=== PATIENT | male | born 1965 | race Caucasian/White ===

== ENCOUNTER 2018-06-17 14:55 | Inpatient (IN) | payer OTHER ==
[~2018-06-17] VITALS: Ht 177.8 cm; Wt 68.0 kg
[2018-06-17] VITALS (7 sets, daily range): BP systolic 120–150; BP diastolic 63–81
[~2018-06-17 14:55] MED LIST: DOXYCYCLINE 10100 MG PO; NOHOMEMEDICATIONS; PERCOCET 5-3251 EACH PO
[2018-06-17 15:27] LABS: BASOPHILS 0.4 % (0.0-2.0); LYMPHOCYTES 30.7 % (24.0-44.0); MCH 25.7 pg (26.0-34.0)
[2018-06-17 15:29] LABS: ABSOLUTE NEUTROPHILS 4.4 thou/uL (1.4-8.2); EOSINOPHILS 1.2 % (0.0-3.0); MCHC 32.9 g/dL (28.0-37.0); MCV 78.2 fL (80.0-100.0); MONOCYTES 6.4 % (1.0-8.0); PLATELET COUNT 144 thou/uL (150-400); POLYS 61.3 % (36.0-66.0); RBC 1.73 mil/uL (4.50-6.00); WBC 7.1 thou/uL (4.0-11.0)
[2018-06-17 15:31] LABS: HEMATOCRIT 13.6 % (42.0-52.0); HEMOGLOBIN 4.5 gm/dL (14.0-18.0)
[2018-06-17 15:36] LABS: CALCIUM 7.7 mg/dL (8.5-10.1); CREATININE 0.9 mg/dL (0.7-1.3); POTASSIUM 3.5 mmol/L (3.5-5.1)
[2018-06-17 15:42] LABS: ALBUMIN 2.4 g/dL (3.4-5.0); TOTAL PROTEIN 5.4 g/dL (6.4-8.2)
[2018-06-17 15:45] LABS: ANISOCYTOSIS 2+; HYPOCHROMASIA 1+; POLYCHROMASIA OCCASIONAL
[2018-06-17 15:46] LABS: MICROCYTES 1+
[2018-06-17 16:03] LABS: INR 1.2; PROTIME 12.2 Seconds (9.3-11.4)
[2018-06-17 16:06] LABS: URINE BLOOD NEGATIVE (Negative); URINE CLARITY CLEAR; URINE COLOR YELLOW; URINE GLUCOSE-RANDOM* NEGATIVE (Negative); URINE KETONES NEGATIVE (Negative); URINE NITRITE-REFLEX NEGATIVE (Negative); URINE PROTEIN (DIPSTICK) NEGATIVE (Negative)
[2018-06-17 16:07] LABS: ICTOTEST (BILI CONFIRMATORY) Negative (Negative); URINE BILIRUBIN NEGATIVE (Negative); URINE LEUKOCYTES-REFLEX 1+ (Negative)
[2018-06-17 16:16] LABS: BACTERIA-REFLEX 1-9 Few /HPF (None Seen); CASTS None Seen /LPF (None Seen); CRYSTALS None Seen /LPF (None Seen); SQUAMOUS None Seen /LPF (0-3); URINE RBC None Seen /HPF (0-2)
[2018-06-17 17:28] LABS: TSH 4.181 uIU/mL (0.358-3.740)
--- NOTE | 2018-06-17 18:21 | NUR ---
PT ADMITED FROM ER. ALERT AND ORIENTED. ADMISSION HX AND ASSESSMENT COMPLETED. VSS. ON CIWA PROTOCAL. SCORED A 3. PT ORIENTED TO THE ROOM AND THE CALL SYSTEM. ORDERS GIVEN TO TRANSFUSE 1 UNIT OF BLOOD. NPO AFTER MIDNIGHT. WILL CONTINUE TO MONITOR.
[2018-06-17 18:28] LABS: FOLIC ACID 22.8 ng/mL (8.6-58.9)
[2018-06-18 03:08] LABS: GLYCOHEMOGLOBIN (HGB A1C) 4.8 % (4.8-5.6)
--- NOTE | 2018-06-18 03:21 | NUR ---
Patient making slow progress towards outcome goals. Completed transfusion of 2 units PRBC without untoward reations. Tolerated clear liquids.PO after MN for possible EGD, patient not happy but states understanding. IVFLuids and Protonix drip infusing. No active signs of bleeding. Rhythm sinus with brief SVT with activity. CIWA levels 3-4. Patient medicated with Lorazepam with some relief. High fall risks, fall precautions in place.
[2018-06-18 03:54] VITALS: BP 133/65
[2018-06-18 06:27] LABS: HEMATOCRIT 18.5 % (42.0-52.0); HEMOGLOBIN 6.6 gm/dL (14.0-18.0)
--- NOTE | 2018-06-18 06:35 | NUR ---
No signs of active bleeding. Hemoglobin/HCT 6.6 and 18.5 after 2 units PRBC. Orders received to tansfuse 1 mor unit PRBC. NPO per GI for possible EGD.
[2018-06-18 06:37] LABS: CHOLESTEROL 72 mg/dL (<200); HDL CHOLESTEROL 14 mg/dL (>40); LDL CHOLESTEROL 44 mg/dL (<100); TC:HDL 5.1 Ratio (Not establshd); TRIGLYCERIDE 71 mg/dL (<150); VLDL 14 mg/dL (<40)
[2018-06-18 07:10] VITALS: BP 150/73
[2018-06-18 07:58] VITALS: BP 122/77; BP 127/89; BP 129/80
[2018-06-18 08:47] LABS: CALCIUM 7.9 mg/dL (8.5-10.1); CREATININE 0.8 mg/dL (0.7-1.3); MAGNESIUM 1.7 mg/dL (1.8-2.4); POTASSIUM 3.9 mmol/L (3.5-5.1)
[2018-06-18 11:02] VITALS: BP 139/77
[2018-06-18 13:34] LABS: HEMATOCRIT 22.4 % (42.0-52.0); HEMOGLOBIN 7.5 gm/dL (14.0-18.0)
[2018-06-18 16:13] VITALS: BP 134/82
--- NOTE | 2018-06-18 17:20 | NUR ---
END OF SHIFT NOTE. PT TO GI FOR EGD THIS AM. TOLORATED PROCEDURE WELL. 1 UNIT PRBCS GIVEN . HBG UP TO 7.5 CALL TO CAMILLE DAHL. WANT TO JUST CHECK IN AM. CONTINUE PROTONIX GTT. PT REFUSED CLEAR LIQUIDS SO UNABLE TO DO COLONOSCOPY IN AM. TOLORATING REGULAR DIET. VSS.
[2018-06-18 19:34] VITALS: BP 141/84
[2018-06-19 03:32] VITALS: BP 147/75
[2018-06-19 05:49] LABS: HEMATOCRIT 23.7 % (42.0-52.0); HEMOGLOBIN 7.9 gm/dL (14.0-18.0); MCH 28.2 pg (26.0-34.0); MCHC 33.4 g/dL (28.0-37.0); RBC 2.8 mil/uL (4.50-6.00); RDW 19.1 % (10.5-14.5); WBC 5.5 thou/uL (4.0-11.0)
[2018-06-19 05:56] LABS: CALCIUM 7.4 mg/dL (8.5-10.1); CREATININE 0.8 mg/dL (0.7-1.3); MAGNESIUM 1.5 mg/dL (1.8-2.4); POTASSIUM 3.8 mmol/L (3.5-5.1)
--- NOTE | 2018-06-19 06:08 | NUR ---
Patient slept most of night. PO ativan given once for a CIWA of 8. Other CIWA assessments have been 2 the rest of the shift. No active bleeding. Protonix gtt and fluids infusing at this time. Patient voiding per urinal. Bed alarm on. Patient making some progress toward care plan goals.
[2018-06-19 06:10] LABS: MCV 84.6 fL (80.0-100.0)
[2018-06-19 08:15] VITALS: BP 178/110
[2018-06-19 10:59] VITALS: BP 137/78
--- NOTE | 2018-06-19 15:54 | NUR ---
ASSESSMENT: CM REVIEWED CHART AND MET WITH PATIENT AT THE BEDSIDE. PT REPORTS HE IS HOMELESS AND LIVES UNDER A BRIDGE IN [facility]. CM ASKED IF PATIENT HAD BEEN TO A HOMELESS FDC BEFORE AND CM COULD HELP GET HIM INTO ONE. PT STATED HE HAS BEEN TO ONE AND DOES NOT WANT TO GO BACK. PT REPORTS HE WANTS TO GO BACK TO THE BRIDGE HE LIVES UNDER. PT WILL NEED ASSISTANCE WITH TRANSPORTATION AT DISCHARGE..
[2018-06-19 16:44] VITALS: BP 155/99
--- NOTE | 2018-06-19 17:53 | NUR ---
ASSUMED PATIENT CARE AT 0700. A/O X4. C/O ABD PAIN IN AM. CIW 2-3. NO N/V. GENERLIZED WEAKNESS. SLOWLY TOWARDS POC GOALS.
[2018-06-19 19:25] VITALS: BP 146/102
[2018-06-20 04:11] VITALS: BP 168/102
--- NOTE | 2018-06-20 04:23 | NUR ---
PATIENT IS SLOWLY PROGRESSING IN HIS CARE PLAN. VITAL SIGNS STABLE WITH PATIENT HAVING MULTIPLE COMPLAINTS OF ABDOMINAL PAIN AND NAUSEA. BOTH TREATED EFFECTIVELY WITH MEDICATIONS AND NON PHARMACOLOGICAL INTERVENTIONS. FULLY ORIENTED, PATIENT IS ABLE TO CALL FOR REQUESTS. CIWA ASSESSMENTS Q4 WITH MEDICATION PROVIDED PER PROTOCOL. UP MULTIPLE TIMES TO BEDSIDE COMMODE WITH ASSISTANCE INCIDENT FREE, PATIENT IS WEAK AND UNSTEADY ON FEET AND SHOULD BE CONSIDERED A HIGH FALL RISK. NURSE ATTEMPTED TO PROVIDE BED BATH WHICH PATIENT REFUSED. POSSIBLE DISCHARGE TODAY. CONTINUE PLAN OF CARE.
--- NOTE | 2018-06-20 04:49 | NUR ---
ASSUMED PATIENT CARE AT 1845. PATIENT IS ALERT AND ORIENTED, TAKES SOME TIME TO ANSWER QUESTIONS BUT EVENTUALLY ANSWERS APPROPRIATELY. HE IS A HIGH FALL RISK D/T ADMITTING DIAGNOSIS, WEAKNESS, NUMBNESS OF BLE, AND ADDITION OF CIWA. NURSE ADMINISTERED FENTANYL FOR PAIN TO GENERALIZED ABDOMINAL AREA. WELL TRAMADOL. NURSE ALSO ADMINISTERED ONDANSETRON AFTER PATIENT HAD SEVERAL EPISODES OF N/V. PATIENT IS COOPERATIVE WITH CARE.
[2018-06-20 05:21] LABS: HEMATOCRIT 22.7 % (42.0-52.0); HEMOGLOBIN 7.8 gm/dL (14.0-18.0); MCH 28.6 pg (26.0-34.0); MCHC 34.3 g/dL (28.0-37.0); MCV 83.6 fL (80.0-100.0); RBC 2.72 mil/uL (4.50-6.00); RDW 19.9 % (10.5-14.5); WBC 3.3 thou/uL (4.0-11.0)
[2018-06-20 05:32] LABS: ALBUMIN 2.2 g/dL (3.4-5.0); DIRECT BILIRUBIN 0.6 mg/dL (<0.1-0.3); TOTAL PROTEIN 5.3 g/dL (6.4-8.2)
[2018-06-20 05:40] LABS: CALCIUM 7.4 mg/dL (8.5-10.1); CREATININE 0.6 mg/dL (0.7-1.3); MAGNESIUM 1.4 mg/dL (1.8-2.4); POTASSIUM 3.8 mmol/L (3.5-5.1)
[2018-06-20 07:10] VITALS: BP 162/96
[2018-06-20 11:00] VITALS: BP 155/94
--- NOTE | 2018-06-20 14:35 | NUR ---
SW reviewed chart and spoke with nursing and attending physician. Pt is progressing towards goals for discharge. Discharge is anticipated for tomorrow. Pt has declined resources for homeless shelters. ISABELLA is following to assist as needed with discharge planning.
[2018-06-20 15:29] VITALS: BP 145/85
--- NOTE | 2018-06-20 17:47 | NUR ---
SHIFT SUMMARY: ALERT AND ORIENTED, VITALS STABLE. MEDICATED FOR PAIN WITH PRN MEDS. TOLERATING DIET W/O NAUSEA. VOIDING PER URINAL. WILL CONTINUE TO MONITOR CLOSELY. ASSESSMENT DOCUMENTED.
--- NOTE | 2018-06-20 19:06 | PATH ---
[facility] [address] [place] [address] PATHOLOGY RPT PROCEDURE Name: JARED ALARCON Herson Room #: 357-P ADM IN M.R.#: [id number] ������������������ Admission: 06/17/18 ������������������ Date of : 61 Discharge: Report #: [id number] Path Case #: [id number] L[facility] Accession Number: [id number] . 01 Material submitted: . small bowel - SMALL BOWEL BIOPSY R/O MALIGNANCY . 01 Clinical history: . Hematemesis, melena, anemia Gastric and esophageal varices, gastric portal hypertension Rule out malignancy . 02 Diagnosis: Small bowel mucosa, small bowel rule out malignancy, endoscopic biopsy: - Moderate active peptic duodenitis (please see comment). - Negative for dysplasia or malignancy. (IUV:terrestrial ecologist; 06/20/2018) MBR/06/20/2018 . 02 Comment: Examination shows fundic and cardia-type metaplastic changes along with moderate acute inflammation. Scattered rare foci shows small bowel-type intestinal mucosa. Much of the biopsy tissue is replaced by gastric mucosa. Several foci of ulceration are identified as well. Due to the inflammation, there is a mild amount of villous blunting present. There is no increase in intraepithelial lymphocytes. There is no dysplasia or malignancy. (IUV:terrestrial ecologist; 06/20/2018) . 02 Electronically signed: . Charlene Bunch MD, Pathologist NPI- [id number] . 01 Gross description: . The specimen is received in formalin, labeled "Jared Alarcon, small bowel biopsy" and consists of multiple fragments of soft sifuentes tissue measuring 1.5 x 0.5 x 0.3 cm in aggregate which are entirely submitted in A1. (SDY; 06/19/2018) SYU/SYU . 02 Pathologist provided ICD-10: K29.80 . 02 CPT . 513251 Specimen Comment: A courtesy copy of this report has been sent to Specimen Comment: [phone], [place] [address] PATHOLOGY RPT PROCEDURE Name: JARED ALARCON Herson Room #: 357-P [facility] IN M.R.#: [id number] ������������������ Admission: 06/17/18 ������������������ Date of : 61 Discharge: Report #: [id number] Path Case #: [id number] Specimen Comment: Report sent to / DR GUZMAN Performed at: [address], [place], [place] [id number] MD Mauricio Dillon MD Phone: [phone] Performed at: [address] [id number] MD Charlene Bunch MD Phone: [phone]
[2018-06-20 19:10] VITALS: BP 160/95
[2018-06-20 19:57] LABS: CALCIUM 8.4 mg/dL (8.5-10.1); CREATININE 0.6 mg/dL (0.7-1.3); MAGNESIUM 1.5 mg/dL (1.8-2.4); POTASSIUM 4.6 mmol/L (3.5-5.1)
[2018-06-21 00:15] VITALS: BP 148/78
--- NOTE | 2018-06-21 03:27 | NUR ---
SLEPT PART OF SHIFT. AWAKE FREQUENTLY ASKING FOR SNACKS. PAIN MEDICATIONS GIVEN PRN WITH RELIEF NOTED. STATED STOMACH HURTING AT 0248 AFTER EATING SO ZOFRAN GIVEN. PATIENT SLEEPING PAST ZOFRAN. WORKING ON GOALS AND PLAN OF CARE FOR NOC. NO ACTIVE BLEEDING NOTED. PROGRESSING SLOWLY TOWARDS DISCHARGE GOALS. PATIENT WISHES TO RETURN TO BEING HOMELESS. CONTINUE TO ASSES CLOESLY.
[2018-06-21 04:06] VITALS: BP 148/90
[2018-06-21 05:16] LABS: MCH 28.4 pg (26.0-34.0); MCHC 33.6 g/dL (28.0-37.0); MCV 84.5 fL (80.0-100.0); RBC 2.84 mil/uL (4.50-6.00); RDW 20.5 % (10.5-14.5); WBC 3.2 thou/uL (4.0-11.0)
[2018-06-21 05:37] LABS: CREATININE 0.7 mg/dL (0.7-1.3); MAGNESIUM 1.6 mg/dL (1.8-2.4)
[2018-06-21 07:42] VITALS: BP 164/93
[2018-06-21 11:53] VITALS: BP 131/87
[2018-06-21] MEDS ORDERED: PROTONIX40 M1 PO (13:43)
[2018-06-21] MEDS ORDERED: NEURONTIN 300300 M1 PO (13:43)
[2018-06-21] MEDS ORDERED: VITAMIN B-1100 M2 PO (13:44)
[2018-06-21 14:32] VITALS: BP 131/87
--- NOTE | 2018-06-21 16:19 | NUR ---
on-going assessment: PT HAS ORDERS TO DISCHARGE HOME TODAY TO SELF CARE. PT IS HOMELESS AND LIVES UNDER A BRIDGE IN [place]. PT REFUSING TO GO TO A HOMELESS SNF OR ANY OTHER LOCATION OTHER THEN RETURNING TO HIS PREVIOUS HOME. PT REPORTS NO MONEY FOR MEDCICATIONS SO CM (WITH APPROVAL FROM CM DIRECTOR) VOUCHERED 32.50 FOR HIS MEDICATIONS. CM ALSO FILLED OUT CAB VOUCHER FOR PATIENT AND PROVIDED IT TO THE BEDSIDE RN WHEN EVER PATIENT IS READY FOR DISCHARGE HE CAN BE ACCOMPANIED TO THE [facility] OFFICE WHERE THEY WILL PAGE THE CAB. CM PROVIDED PATIENT WITH HOMLESS SNF RESOURCES/FOOD AND CLOTHING PANTRIES/SAFETY NET CLINIC INFORMATION/ CRISIS HOTLINE NUMBERS. PT REPORTS NO FURTHER QUESTIONS FROM CM.
--- NOTE | 2018-06-21 18:12 | NUR ---
Assumed care of Pt at 0700. Pt alert and oriented x3 in no acute distress. reports abdominal pain w/ movement - finding good relief with current med regimen. reports soa but spo2 is 100% and respirations normal. clear breath sounds. abdomen firm but +active bowel sounds. discharge meds provided to patient by case packer and sealer. cab voucher provided. will cont to monitor.
== END 2018-06-21 18:53 | disposition home or self-care (01) | DRG 378 ==
LOC: ER 14:55 → EROBS 15:56 → 3W 15:56
PROVIDERS: Hospitalist; Internal Medicine Gastroenterology; Nurse Practitioner; Physician Assistant; Specialist; ADMIT Internal Medicine
PROC: 30233N1 Transfusion of Nonautologous Red Blood Cells into Peripheral Vein, Percutaneous Approach (ICD-10-PCS; principal; 2018-06-17)
PROC: 0DB88ZX Excision of Small Intestine, Via Natural or Artificial Opening Endoscopic, Diagnostic (ICD-10-PCS; 2018-06-18)
DX: K26.4 Chronic or unspecified duodenal ulcer with hemorrhage (principal); D62 Acute posthemorrhagic anemia; N39.0 Urinary tract infection, site not specified; E44.0 Moderate protein-calorie malnutrition; K76.6 Portal hypertension; F10.239 Alcohol dependence with withdrawal, unspecified; K70.30 Alcoholic cirrhosis of liver without ascites; K29.80 Duodenitis without bleeding; K31.89 Other diseases of stomach and duodenum; I86.4 Gastric varices; Y90.9 Presence of alcohol in blood, level not specified; I85.00 Esophageal varices without bleeding; G25.81 Restless legs syndrome; D69.6 Thrombocytopenia, unspecified; F17.210 Nicotine dependence, cigarettes, uncomplicated; Z88.0 Allergy status to penicillin; Z88.2 Allergy status to sulfonamides; Z59.0 Homelessness; Z68.21 Body mass index [BMI] 21.0-21.9, adult
CPT/HCPCS: 10879; 62110; 62900; 70005

== ENCOUNTER 2018-07-08 23:34 | Emergency (ER) | payer OTHER ==
[~2018-07-08] VITALS: Ht 177.8 cm; Wt 70.3 kg
[~2018-07-08 23:34] MED LIST changes: +NEURONTIN 300300 M1 PO; +PROTONIX40 M1 PO; +VITAMIN B-1100 M2 PO
[2018-07-09 00:42] LABS: HEMATOCRIT 25.2 % (42.0-52.0); HEMOGLOBIN 8.2 gm/dL (14.0-18.0); MCH 24.8 pg (26.0-34.0); MCHC 32.4 g/dL (28.0-37.0); MCV 76.6 fL (80.0-100.0); PLATELET COUNT 119 thou/uL (150-400); RBC 3.29 mil/uL (4.50-6.00); RDW 22.4 % (10.5-14.5); WBC 4.2 thou/uL (4.0-11.0)
[2018-07-09 00:51] LABS: ANION GAP 5 mmol/L (7-16); BUN 9 mg/dL (7-18); CHLORIDE 103 mmol/L (98-107); CO2 29 mmol/L (21-32); CREATININE 0.8 mg/dL (0.7-1.3); GLUCOSE 113 mg/dL (74-106); POTASSIUM 3.6 mmol/L (3.5-5.1); SODIUM 137 mmol/L (136-145)
[2018-07-09 01:01] LABS: ALBUMIN 2.5 g/dL (3.4-5.0); DIRECT BILIRUBIN 0.4 mg/dL (<0.1-0.3); SGOT 89 U/L (15-37); SGPT 89 U/L (30-65); TOTAL BILIRUBIN 0.7 mg/dL (<0.1-1.0); TOTAL PROTEIN 6.7 g/dL (6.4-8.2); TROPONIN-I <0.06 ng/mL (<0.06)
[2018-07-09 01:23] LABS: ANISOCYTOSIS 3+; PLATELET ESTIMATE DECREASED; POLYCHROMASIA 1+
[2018-07-09 02:42] VITALS: BP 137/84
--- NOTE | 2018-07-09 08:07 | EKG ---
[place] [address] [place] [address] ELECTROCARDIOGRAM REPORT Name: MARIA DEL CARMEN ALARCON [facility] [id number] ������������������ Admission: 07/08/18 ������������������ Attend Phys: Discharge: 07/09/18 ������������������ Date of : 61 Report #: [id number] ����������������������������������������������������������������� [id number] THIS REPORT FOR: //name// [facility] ED Test Date: 2018-07-09 Test Time: 00:36:07 Pat Name: MARIA DEL CARMEN ALARCON Department: Room: Gender: M Data Analytics Architect: ilda : 1965 Requested By: Scar Rueda Order Number: [id number] MD: Liu Reeves Measurements Intervals [place] Rate: 82 P: 48 AR: 142 QRS: 13 QRSD: 82 T: 27 QT: 409 QTc: 478 Interpretive Statements Sinus rhythm Abnormal R-wave progression, early transition Borderline prolonged QT interval No previous ECG available for comparison Electronically Signed On 07-09-2018 8:07:06 CDT by Liu Reeves [email or web address] ��������������������������������������������� <ELECTRONICALLY SIGNED> ���������������������������������������� By: Liu Reeves MD, [facility] ��������������������������������������������� 07/09/18 0807 0036 0036 Liu Reeves MD, FACC /EPI
== END 2018-07-09 02:43 | disposition home or self-care (01) ==
LOC: ER 23:34
PROVIDERS: Emergency Medicine
DX: S90.822A Blister (nonthermal), left foot, initial encounter (principal); R60.0 Localized edema; M62.81 Muscle weakness (generalized); F17.210 Nicotine dependence, cigarettes, uncomplicated; Z88.0 Allergy status to penicillin; Z88.5 Allergy status to narcotic agent; X58.XXXA Exposure to other specified factors, initial encounter; Y93.89 Activity, other specified; Y92.89 Other specified places as the place of occurrence of the external cause; Y99.8 Other external cause status

== ENCOUNTER 2018-11-07 00:46 | Emergency (ER) | payer OTHER ==
[~2018-11-07] VITALS: Ht 177.8 cm; Wt 73.5 kg
[2018-11-07 01:43] LABS: HEMOGLOBIN 8.4 gm/dL (14.0-18.0); MCH 21.3 pg (26.0-34.0); MCHC 32.2 g/dL (28.0-37.0); MCV 66.3 fL (80.0-100.0); PLATELET COUNT 111 thou/uL (150-400); RBC 3.92 mil/uL (4.50-6.00); RDW 21.7 % (10.5-14.5); WBC 3.1 thou/uL (4.0-11.0)
[2018-11-07 01:45] LABS: ANION GAP 9 mmol/L (7-16); BUN 29 mg/dL (7-18); CALCIUM 8.5 mg/dL (8.5-10.1); CHLORIDE 102 mmol/L (98-107); CO2 26 mmol/L (21-32); GLUCOSE 97 mg/dL (74-106); POTASSIUM 4.1 mmol/L (3.5-5.1); SODIUM 137 mmol/L (136-145)
[2018-11-07 01:54] LABS: ALBUMIN 2.9 g/dL (3.4-5.0); MAGNESIUM 1.3 mg/dL (1.8-2.4); SGOT 173 U/L (15-37); SGPT 127 U/L (30-65); TOTAL BILIRUBIN 0.4 mg/dL (<0.1-1.0); TOTAL PROTEIN 6.9 g/dL (6.4-8.2); TROPONIN-I <0.06 ng/mL (<0.06)
[2018-11-07 03:15] LABS: ABSOLUTE NEUTROPHILS 2.6 thou/uL (1.4-8.2)
[2018-11-07 03:16] LABS: ANISOCYTOSIS 2+; HYPOCHROMASIA 3+; LARGE PLATELETS FEW; MICROCYTES 3+; PLATELET ESTIMATE DECREASED; POIKILOCYTOSIS 2+
[2018-11-07] MEDS ORDERED: MAG-OXIDE400 MG PO (03:33)
[2018-11-07 04:33] LABS: URINE BILIRUBIN NEGATIVE (Negative); URINE BLOOD NEGATIVE (Negative); URINE CLARITY CLEAR; URINE COLOR YELLOW; URINE GLUCOSE-RANDOM* NEGATIVE (Negative); URINE KETONES NEGATIVE (Negative); URINE LEUKOCYTES-REFLEX NEGATIVE (Negative); URINE NITRITE-REFLEX NEGATIVE (Negative); URINE PROTEIN (DIPSTICK) NEGATIVE (Negative); URINE SPECIFIC GRAVITY 1.015 (1.005-1.035)
[2018-11-07 04:41] LABS: AMP/METHAMP POSITIVE (Negative); BARBITURATES Negative (Negative); BENZODIAZEPINES Negative (Negative); COCAINE Negative (Negative); METHADONE Negative (Negative); OPIATES Negative (Negative); PCP Negative (Negative)
[2018-11-07 06:13] VITALS: BP 135/67
== END 2018-11-07 06:18 | disposition home or self-care (01) ==
LOC: ER 00:46
PROVIDERS: Emergency Medicine
DX: E83.42 Hypomagnesemia (principal); E86.0 Dehydration; F15.10 Other stimulant abuse, uncomplicated; F10.10 Alcohol abuse, uncomplicated; R94.5 Abnormal results of liver function studies; D61.818 Other pancytopenia; F17.210 Nicotine dependence, cigarettes, uncomplicated; Z88.6 Allergy status to analgesic agent; Z88.0 Allergy status to penicillin; Y90.0 Blood alcohol level of less than 20 mg/100 ml

== ENCOUNTER 2019-07-26 23:29 | Emergency (ER) | payer OTHER ==
[~2019-07-26] VITALS: Ht 177.8 cm; Wt 68.0 kg
[~2019-07-26 23:29] MED LIST changes: +MAG-OXIDE400 MG PO
[2019-07-26] MEDS ORDERED: NOHOMEMEDICATIONS (23:32)
[2019-07-27 00:18] LABS: ABSOLUTE NEUTROPHILS 3.6 thou/uL (1.4-8.2); BASOPHILS 0.8 % (0.0-2.0); EOSINOPHILS 1.5 % (0.0-3.0); HEMATOCRIT 36.6 % (42.0-52.0); HEMOGLOBIN 12.2 gm/dL (14.0-18.0); MCH 26.9 pg (26.0-34.0); MCHC 33.2 g/dL (28.0-37.0); MCV 80.8 fL (80.0-100.0); MONOCYTES 10.5 % (1.0-8.0); PLATELET COUNT 156 thou/uL (150-400); POLYS 47.2 % (36.0-66.0); RBC 4.53 mil/uL (4.50-6.00); RDW 18.9 % (10.5-14.5); WBC 7.5 thou/uL (4.0-11.0)
[2019-07-27 00:26] LABS: ANION GAP 10 mmol/L (7-16); BUN 22 mg/dL (7-18); CALCIUM 7.5 mg/dL (8.5-10.1); CHLORIDE 107 mmol/L (98-107); CO2 26 mmol/L (21-32); CREATININE 0.9 mg/dL (0.7-1.3); GLUCOSE 122 mg/dL (74-106); SODIUM 143 mmol/L (136-145)
[2019-07-27 00:28] LABS: APTT 28.2 Seconds (24.5-32.8); INR 1.1; PROTIME 10.9 Seconds (9.3-11.4)
[2019-07-27 00:36] LABS: ALBUMIN 3.1 g/dL (3.4-5.0); MAGNESIUM 1.6 mg/dL (1.8-2.4); SALICYLATE < 2.8 mg/dL (2.8-20.0); SGOT 186 U/L (15-37); SGPT 143 U/L (30-65); TOTAL BILIRUBIN 0.7 mg/dL (<0.1-1.0); TOTAL PROTEIN 7.6 g/dL (6.4-8.2); TROPONIN-I <0.06 ng/mL (<0.06)
[2019-07-27] MEDS ORDERED: MAG-OXIDE400 MG PO (01:46)
[2019-07-27 02:07] VITALS: BP 146/93
--- NOTE | 2019-07-28 08:04 | EKG ---
[facility] [place] [address] [address] ELECTROCARDIOGRAM REPORT Name: MARIA DEL CARMEN ALARCON Room #: DEP [facility]#: [id number] Admission: 07/26/19 Attend Phys: Discharge: 07/27/19 Date of : 61 Report #: [id number] THIS REPORT FOR: cc: GILMA - No family physician/PCP GILMA - No family physician/PCP Liu Reeves MD [facility] THIS REPORT FOR: //name// [facility] ED Test Date: 2019-07-27 Test Time: 00:11:16 Pat Name: MARIA DEL CARMEN ALARCON Department: Room: Gender: White Shoe Examiner: [facility] : 1965 Requested By: Rafael Salmeron Order Number: [id number] MD: Liu Reeves Measurements Intervals [place] Rate: 111 P: 54 NE: 141 QRS: 41 QRSD: 84 T: 36 QT: 330 QTc: 449 Interpretive Statements Sinus tachycardia Otherwise normal tracing Compared to ECG 07/09/2018 00:36:07 Heart rate has increased Electronically Signed On 07-28-2019 8:02:49 CDT by Liu Reeves [email or web address] <ELECTRONICALLY SIGNED> By: Liu Reeves MD, FAC 07/28/19 0802 0011 001 Liu Reeves MD, [facility] /EPI
== END 2019-07-27 02:12 | disposition home or self-care (01) ==
LOC: ER 23:29
PROVIDERS: Emergency Medicine
DX: S01.81XA Laceration without foreign body of other part of head, initial encounter (principal); E83.51 Hypocalcemia; R94.5 Abnormal results of liver function studies; F10.129 Alcohol abuse with intoxication, unspecified; F17.210 Nicotine dependence, cigarettes, uncomplicated; Z88.6 Allergy status to analgesic agent; Z88.0 Allergy status to penicillin; Y90.9 Presence of alcohol in blood, level not specified; V09.9XXA Pedestrian injured in unspecified transport accident, initial encounter; Y93.89 Activity, other specified; Y92.89 Other specified places as the place of occurrence of the external cause; Y99.8 Other external cause status

== ENCOUNTER 2019-11-27 13:11 | Emergency (ER) | payer OTHER ==
[~2019-11-27] VITALS: Ht 180.3 cm; Wt 72.6 kg
[2019-11-27 13:36] LABS: HEMATOCRIT 30.4 % (42.0-52.0); HEMOGLOBIN 10.1 gm/dL (14.0-18.0); MCH 27.9 pg (26.0-34.0); MCHC 33.1 g/dL (28.0-37.0); MCV 84.3 fL (80.0-100.0); PLATELET COUNT 116 thou/uL (150-400); RDW 24.3 % (10.5-14.5); WBC 3.9 thou/uL (4.0-11.0)
[2019-11-27 13:36] LABS: URINE BLOOD 2+ (Negative); URINE CLARITY CLEAR; URINE COLOR YELLOW; URINE GLUCOSE-RANDOM* TRACE (Negative); URINE KETONES TRACE (Negative); URINE LEUKOCYTES-REFLEX NEGATIVE (Negative); URINE NITRITE-REFLEX NEGATIVE (Negative); URINE PROTEIN (DIPSTICK) NEGATIVE (Negative); URINE SPECIFIC GRAVITY 1.025 (1.005-1.035)
[2019-11-27 13:43] LABS: AMP/METHAMP POSITIVE (Negative); BARBITURATES Negative (Negative); BENZODIAZEPINES Negative (Negative); COCAINE Negative (Negative); METHADONE Negative (Negative); OPIATES Negative (Negative); PCP Negative (Negative)
[2019-11-27 13:45] LABS: ANION GAP 10 mmol/L (7-16); BUN 19 mg/dL (7-18); CHLORIDE 108 mmol/L (98-107); CO2 26 mmol/L (21-32); CREATININE 0.6 mg/dL (0.7-1.3); GLUCOSE 91 mg/dL (74-106); POTASSIUM 3.4 mmol/L (3.5-5.1); SODIUM 144 mmol/L (136-145)
[2019-11-27 13:54] LABS: ICTOTEST (BILI CONFIRMATORY) Negative (Negative); URINE BILIRUBIN NEGATIVE (Negative)
[2019-11-27 13:55] LABS: ALBUMIN 2.6 g/dL (3.4-5.0); MAGNESIUM 1.5 mg/dL (1.8-2.4); SGOT 216 U/L (15-37); SGPT 130 U/L (30-65); TOTAL BILIRUBIN 1.7 mg/dL (0.2-1.0); TOTAL PROTEIN 6.5 g/dL (6.4-8.2); TROPONIN-I <0.06 ng/mL (<0.06)
[2019-11-27 14:02] LABS: SALICYLATE < 2.8 mg/dL (2.8-20.0)
[2019-11-27 14:14] LABS: SQUAMOUS 0-3 Few /LPF (0-3)
[2019-11-27 14:15] LABS: BACTERIA-REFLEX 1-9 Few /HPF (None Seen); CASTS None Seen /LPF (None Seen); CRYSTALS None Seen /LPF (None Seen); URINE RBC 3-10 Few /HPF (0-2); URINE WBC-REFLEX None Seen /HPF (0-5)
[2019-11-27 14:24] LABS: ANISOCYTOSIS 2+; PLATELET ESTIMATE NORMAL
--- NOTE | 2019-11-27 16:07 | EKG ---
[facility] [place] [address] ELECTROCARDIOGRAM REPORT Name: MARIA DEL CARMEN ALARCON Room #: REG [facility]#: [id number] Admission: 11/27/19 Attend Phys: Discharge: Date of : 61 Report #: [id number] THIS REPORT FOR: cc: GILMA - Tamika family physician/PCP GILMA - Tamika family physician/PCP Jorge Ni MD [facility] ~ THIS REPORT FOR: //name// [facility] ED Test Date: 2019-11-27 Test Time: 13:32:16 Pat Name: MARIA DEL CARMEN ALARCON Department: Room: Gender: M Seat Maker: [place] : 1965 Requested By: Rafael Salmeron Order Number: [id number] MD: Jorge Ni Measurements Intervals [place] Rate: 88 P: 28 MT: 149 QRS: 27 QRSD: 85 T: 37 QT: 394 QTc: 477 Interpretive Statements Sinus rhythm Borderline prolonged QT interval Baseline wander in lead(s) V1 Compared to ECG 07/27/2019 00:11:16 Sinus tachycardia no longer present Electronically Signed On 11-27-2019 16:07:24 CDT by Jorge Ni [email or web address] <ELECTRONICALLY SIGNED> By: Jorge Ni MD, FACC 11/27/19 1607 1332 1332 Jorge Ni MD, [facility] /EPI
[2019-11-27 20:15] VITALS: BP 115/69
[2019-11-27] MEDS ORDERED: MECLIZINE HCL25 M1 PO (20:16)
== END 2019-11-27 22:05 | disposition home or self-care (01) ==
LOC: ER 13:11
PROVIDERS: Emergency Medicine
DX: F10.920 Alcohol use, unspecified with intoxication, uncomplicated (principal); E88.09 Other disorders of plasma-protein metabolism, not elsewhere classified; E83.42 Hypomagnesemia; F12.90 Cannabis use, unspecified, uncomplicated; F15.90 Other stimulant use, unspecified, uncomplicated; D61.818 Other pancytopenia; F88 Other disorders of psychological development; R42 Dizziness and giddiness; F17.210 Nicotine dependence, cigarettes, uncomplicated; Z79.899 Other long term (current) drug therapy; Z88.5 Allergy status to narcotic agent; Z88.0 Allergy status to penicillin; Y90.7 Blood alcohol level of 200-239 mg/100 ml

== ENCOUNTER 2020-02-22 15:59 | Emergency (ER) | payer OTHER ==
[~2020-02-22] VITALS: Ht 177.8 cm; Wt 77.1 kg
[~2020-02-22 15:59] MED LIST changes: +MECLIZINE HCL25 M1 PO
[2020-02-22 17:03] LABS: HEMATOCRIT 27.4 % (42.0-52.0); HEMOGLOBIN 8.8 gm/dL (14.0-18.0); MCH 29.3 pg (26.0-34.0); MCV 91.8 fL (80.0-100.0); RBC 2.99 mil/uL (4.50-6.00); RDW 19.9 % (10.5-14.5); WBC 3.3 thou/uL (4.0-11.0)
[2020-02-22 17:15] LABS: CALCIUM 8.3 mg/dL (8.5-10.1); CREATININE 0.7 mg/dL (0.7-1.3); POTASSIUM 3.3 mmol/L (3.5-5.1)
[2020-02-22 17:17] LABS: MAGNESIUM 1.5 mg/dL (1.8-2.4)
[2020-02-22 17:22] LABS: LIPASE 150 U/L (73-393)
[2020-02-22 17:37] LABS: ABSOLUTE NEUTROPHILS 2.4 thou/uL (1.4-8.2); ANISOCYTOSIS 1+
[2020-02-22 17:38] LABS: PLATELET COUNT 130 thou/uL (150-400)
[2020-02-22] MEDS ORDERED: PERMETHRIN60 GM TOP (18:01)
[2020-02-22 18:18] VITALS: BP 154/85
== END 2020-02-22 18:31 | disposition home or self-care (01) ==
LOC: ER 15:59
PROVIDERS: Emergency Medicine
DX: L29.9 Pruritus, unspecified (principal); R06.02 Shortness of breath; R25.2 Cramp and spasm; F17.210 Nicotine dependence, cigarettes, uncomplicated; Z88.5 Allergy status to narcotic agent; Z88.0 Allergy status to penicillin

== ENCOUNTER 2020-03-02 17:24 | Inpatient (IN) | payer OTHER ==
[~2020-03-02] VITALS: Ht 177.8 cm; Wt 80.7 kg
[~2020-03-02 17:24] MED LIST changes: +PERMETHRIN60 GM TOP
[2020-03-02 17:25] VITALS: BP 122/73
[2020-03-02 17:41] LABS: ABSOLUTE NEUTROPHILS 3.2 thou/uL (1.4-8.2); BASOPHILS 0.8 % (0.0-2.0); EOSINOPHILS 0.3 % (0.0-3.0); HEMATOCRIT 20.3 % (42.0-52.0); HEMOGLOBIN 6.7 gm/dL (14.0-18.0); LYMPHOCYTES 23.9 % (24.0-44.0); MCH 27.9 pg (26.0-34.0); MCHC 32.8 g/dL (28.0-37.0); MCV 84.9 fL (80.0-100.0); MONOCYTES 11.6 % (1.0-8.0); PLATELET COUNT 173 thou/uL (150-400); POLYS 63.4 % (36.0-66.0); RBC 2.39 mil/uL (4.50-6.00); RDW 20.6 % (10.5-14.5)
[2020-03-02 17:49] LABS: ANION GAP 10 mmol/L (7-16); BUN 23 mg/dL (7-18); CALCIUM 7.7 mg/dL (8.5-10.1); CHLORIDE 103 mmol/L (98-107); CO2 25 mmol/L (21-32); CREATININE 0.7 mg/dL (0.7-1.3); GLUCOSE 102 mg/dL (74-106); SODIUM 138 mmol/L (136-145)
[2020-03-02 17:59] LABS: ALBUMIN 2.2 g/dL (3.4-5.0); DIRECT BILIRUBIN 0.9 mg/dL (<0.1-0.2); LIPASE 95 U/L (73-393); SGOT 134 U/L (15-37); SGPT 110 U/L (30-65); TOTAL BILIRUBIN 1.7 mg/dL (0.2-1.0); TOTAL PROTEIN 5.8 g/dL (6.4-8.2); TROPONIN-I <0.06 ng/mL (<0.06)
[2020-03-02 18:23] LABS: INR 1.2; PROTIME 12.7 Seconds (9.3-11.4)
[2020-03-02 18:39] LABS: URINE BILIRUBIN NEGATIVE (Negative); URINE BLOOD NEGATIVE (Negative); URINE COLOR YELLOW; URINE GLUCOSE-RANDOM* NEGATIVE (Negative); URINE KETONES NEGATIVE (Negative); URINE PROTEIN (DIPSTICK) NEGATIVE (Negative)
[2020-03-02 18:40] LABS: URINE LEUKOCYTES-REFLEX 2+ (Negative); URINE NITRITE-REFLEX POSITIVE (Negative)
[2020-03-02 18:41] LABS: URINE CLARITY SL HAZY
[2020-03-02 18:45] LABS: AMP/METHAMP Negative (Negative); BARBITURATES Negative (Negative); BENZODIAZEPINES Negative (Negative); COCAINE Negative (Negative); METHADONE Negative (Negative); OPIATES Negative (Negative); PCP Negative (Negative)
[2020-03-02 18:49] LABS: CASTS None Seen /LPF (None Seen); CRYSTALS None Seen /LPF (None Seen); SQUAMOUS None Seen /LPF (0-3); URINE RBC None Seen /HPF (0-2); URINE WBC-REFLEX 6-15 Few /HPF (0-5)
[2020-03-02 23:13] VITALS: BP 126/80; BP 132/81; BP 133/81; BP 137/88; BP 140/80
[2020-03-03] VITALS (8 sets, daily range): BP systolic 122–171; BP diastolic 55–96
[2020-03-03 07:10] LABS: HEMATOCRIT 20.6 % (42.0-52.0); HEMOGLOBIN 6.8 gm/dL (14.0-18.0)
--- NOTE | 2020-03-03 07:19 | EKG ---
[address] [place] [address] ELECTROCARDIOGRAM REPORT Name: MARIA DEL CARMEN ALARCON Room #: 202-[facility] IN M.R.#: [id number] Admission: 03/02/20 Attend Phys: Belen Bedolla MD Discharge: Date of : 61 Report #: [id number] [facility] ED Test Date: 2020-03-02 Test Time: 17:25:01 Pat Name: MARIA DEL CARMEN ALARCON Department: Room: 202 Gender: M Car Stereo Installer: MAREN : 1965 Requested By: Obed Edgar Order Number: [id number] : Jorge Ni Measurements Intervals [place] Rate: 103 P: 51 [place]: 135 QRS: 5 QRSD: 76 T: 31 QT: 356 QTc: 466 Interpretive Statements Sinus tachycardia Abnormal R-wave progression, early transition Compared to ECG 11/27/2019 13:32:16 Sinus rhythm no longer present Electronically Signed On 03-03-2020 7:19:17 BLADE GRADER OPERATOR by Jorge Ni [email or web address] <ELECTRONICALLY SIGNED> By: Jorge Ni MD, [facility] 03/03/20 0719 1725 24 Jorge Ni MD, FACC /EPI
--- NOTE | 2020-03-03 15:28 | P ---
[facility] [place] [address] PROCEDURE REPORT Name: MARIA DEL CARMEN ALARCON Room #: 202-P ADM IN M.R.#: [id number] Admission: 03/02/20 Attend Phys: Loren Tiwari Discharge: Date of : 61 Report #: [id number] THIS REPORT FOR: cc: FAM - No family physician/PCP FAM - No family physician/PCP Alton Carter MD ~ DATE OF SERVICE: 03/03/2020 PROCEDURE PERFORMED: Upper endoscopy. HISTORY OF PRESENT ILLNESS: The patient is a 54-year-old male admitted with generalized malaise, increasing shortness of breath, melanotic stools. He has a long history of alcohol abuse, history of cirrhosis, ascites, underwent an upper endoscopy by my partner, Dr. Vitale in 06/2018, was noted to have small esophageal varices. No stigmata of bleeding at that time and hypertensive gastropathy as well as a duodenal ulcer. At admit, hemoglobin was 6.7. He received 1 unit of packed cells. Hemoglobin repeat was 6.8. He is receiving a second unit at this time. His INR is 1.2. Plan is for upper endoscopy. DESCRIPTION OF PROCEDURE: The risks and benefits of the procedure were explained to the patient, those risks including but not limited to bleeding, perforation and the risk of sedation. He understood these risks and gave informed consent. Sedation was given using propofol per anesthesia. Next, using a standard Olympus upper endoscope, the scope was placed in the patient's mouth and advanced under direct vision through the esophagus, stomach and into the second portion of the duodenum. The larynx was normal in appearance. The upper and mid esophagus was normal. In the distal esophagus, trace esophageal varices noted. No stigmata of bleeding. These were very mild. No evidence of esophagitis or inflammation. There was a diffuse portal hypertensive gastropathy noted throughout the gastric fundus and body. No evidence of bleeding, no blood was noted on exam today throughout the exam. The gastric antrum was normal. The pylorus was normal and patent. In the duodenal bulb, a 1 cm clean white based ulcer was noted. Multiple other smaller ulcers were seen in this area as well as duodenitis. No evidence of bleeding. The second portion of the duodenum was normal. The scope was then withdrawn and the procedure terminated. The patient tolerated the procedure well. IMPRESSION: 1. Duodenal ulcer with duodenitis, possible source of recent melanotic stools. No active bleeding at this time. 2. Trace varices. No stigmata of bleeding. 3. Portal hypertensive gastropathy, also possible cause bleeding, but no evidence of active bleeding currently. RECOMMENDATIONS: [address] [address] PROCEDURE REPORT Name: MARAI DEL CARMEN ALARCON Room #: 202-P [facility] IN M.R.#: [id number] Admission: 03/02/20 Attend Phys: Loren Tiwari Discharge: Date of : 61 Report #: [id number] 1. Continue PPI therapy. 2. Continue to monitor hemoglobin closely. 3. If bleeding continues, may need to consider colonoscopy in the near future. Thank you for allowing me to participate in his care. <ELECTRONICALLY SIGNED> By: Alton Carter MD 03/03/20 1528 1301 1316 Alton Carter MD /nt
--- NOTE | 2020-03-03 16:02 | NUR ---
Met with patient who is A/Ox4. He admits with ETOH withdraw. He is homeless reports he lives under bridge in [facility]. Discussed homeless skilled nursing. Patient asks "how long can i stay here." He wants to think about if he wants a skilled nursing later. He wanted casemgt to call "[employer]" Mr Smith Donta. Left message with Lius Longo.
[2020-03-03 16:42] LABS: HEMATOCRIT 23.4 % (42.0-52.0); HEMOGLOBIN 7.5 gm/dL (14.0-18.0)
--- NOTE | 2020-03-03 18:35 | NUR ---
PT. ARRIVED AT THE FLOOR AT SHIFT CHANGED; PT. ALERT; SR ON THE MONITOR; DURING AM ASSESSMENT PT. ALERT TO PERSON, PLACE AND SITUATION; CIWA 8; C/O ABDOMINAL PAIN; NO PRN MEDICATION; PHYSICIAN NOTIFIED; ORDERS RECEIVED; NPO; GI CONSULTED; PT. EDUCATED ABOUUT IT; ST. UNDERSTANDING; PROTONIX GTT STARTED; FLUIDS INFUSION STARTED; HEMOGLOBIN LESS THAN 7; PHYSICIAN NOTIFIED; YOUNG GI SEWING SUPERVISOR NOTIFIED; ORDERS ON PLACED; ONE UNIT OF BLOOD STARTED; GONE FOR PROCEDURE AFTER 15MIN; BACK BLOOD STILL RUNNING; VS WNL; BLOOD COMPLETE; PT. TOLERATE WELL FOOD; PRN LORAZEPAM GIVEN; ADMISSION PERFORMED; PT. ST. NOT TAKING MEDICATION AT HOME; ASSESSMENT CHARGED; FOLLOWING POC; WILL PASS ON REPORT;
[2020-03-04 00:05] VITALS: BP 127/59
[2020-03-04 00:06] LABS: HAV IgM AB (ANTI-HAV IgM) Negative (Negative); HEPATITIS B SURFACE AG Negative (Negative); HEPATITIS C VIRUS AB >11.0 (0.0-0.9)
--- NOTE | 2020-03-04 02:42 | NUR ---
PT IS ALERT AND ORIENTED X3. CWA SCORE IS 3. SOME IMPULSIVENESS NOTED WITH NURSING CARE. BED ALARM IS ON AND CALL LIGHT WITHIN REACH IF NEEDS ASSISTANCE. ABDOMEN IS SOFT AND FLAT. BOWEL SOUNDS HYPOACTIVE. PT CAN BE IMPULSIVE AT TIMES WITH NURSING CARE. REDIRECTED TOWARDS GOALS AND TREATMENT PER NURISNG. WILL CONTINUE TO ASSESS AND MONITOR PER NURISNG
[2020-03-04 03:40] VITALS: BP 158/92
[2020-03-04 05:13] LABS: HEMOGLOBIN 7.2 gm/dL (14.0-18.0)
[2020-03-04 07:32] VITALS: BP 148/90
[2020-03-04 11:11] VITALS: BP 152/91
--- NOTE | 2020-03-04 13:06 | NUR ---
Case discussed with the care team. Bob following. SIENNA giang ethol w/d. Pt with bed alarm and impulsive. Dc time frame is uncertain. Homeless advocate Luis Whittaker [phone] has not responded. Pt leary of going to assisted at ma. May need help with any new scripts and a cab ride at ma. Will follow.
[2020-03-04 16:30] VITALS: BP 142/77
[2020-03-04 19:00] VITALS: BP 134/73
--- NOTE | 2020-03-04 19:36 | NUR ---
RECEIVED PT'S CARE AROUND 0710; PT. RESTING WITH EYES CLOSED; EQUAL CHEST RISING; SR ON THE MONITOR; DURING AM ASSESSMENT ALERT TO PERSON, PLACE AND SITUATION; AM MEDICATIONS GIVEN; EDUCATED ABOUT FALL PREVENTIONS; ST. UNDERSTANDING; URINAL AT THE BED SIDE; TOOK SHOWER WITH OT; AMBULATED WITH OT; GI NOTIFIED ABOUT PROTONIX GTT D/C; NO PO PROTONIX; ORDERS ON PLACED; MONITORING HH; URINE CULTURE SHOWED E. COLI; PHYSICIAN NOTIFIED; PT. ON ANTIBIOTIC; ASSESSMENT CHARGED; FOLLOWING POC; PASSED ON REPORT;
--- NOTE | 2020-03-05 03:33 | NUR ---
Assumed pt care at 1900. Pt is alert but confused. Pt is oriented to self and place. ETOH withdrwal noted and CIWA protocol in place. Pt is noted to be hallucinating. Medication administered as appropriate. Fall precaution in place. Assessment completed and documented. Denies any pain. No acute events overnight. Continue to monitor. No further needs at this time.
[2020-03-05 04:02] LABS: HEMATOCRIT 22.3 % (42.0-52.0); HEMOGLOBIN 7.2 gm/dL (14.0-18.0); MCH 28.1 pg (26.0-34.0); MCHC 32.5 g/dL (28.0-37.0); MCV 86.4 fL (80.0-100.0); RBC 2.58 mil/uL (4.50-6.00); RDW 18.3 % (10.5-14.5); WBC 2.1 thou/uL (4.0-11.0)
[2020-03-05 04:20] LABS: ALBUMIN 2.1 g/dL (3.4-5.0); CREATININE 0.8 mg/dL (0.7-1.3); MAGNESIUM 1.6 mg/dL (1.8-2.4); POTASSIUM 3.8 mmol/L (3.5-5.1); TOTAL PROTEIN 5.6 g/dL (6.4-8.2)
[2020-03-05 04:40] VITALS: BP 167/92
[2020-03-05 08:04] VITALS: BP 155/107
[2020-03-05 11:43] VITALS: BP 156/81
[2020-03-05 16:16] VITALS: BP 136/77
[2020-03-05 20:15] VITALS: BP 157/85
[2020-03-06 03:38] LABS: CALCIUM 7.9 mg/dL (8.5-10.1); CREATININE 0.8 mg/dL (0.7-1.3); MAGNESIUM 1.7 mg/dL (1.8-2.4); POTASSIUM 4.1 mmol/L (3.5-5.1); TOTAL BILIRUBIN 0.7 mg/dL (0.2-1.0); TOTAL PROTEIN 5.4 g/dL (6.4-8.2)
[2020-03-06 04:45] VITALS: BP 118/67
[2020-03-06 07:11] VITALS: BP 124/79
--- NOTE | 2020-03-06 07:35 | NUR ---
ASSUMED CARE OF PATIENT AT 1900; AOX4/FORGETFUL AND RESTLESS AT TIMES; SR ON THE MONITOR; C/O OF PAIN MANAGED WITH MEDICATION; SLEEP MED GIVEN WITH LITTLE SUCCESS; PLAN IS FOR PATIENT TO WORK WITH CASE [facility] RE PLACEMENT D/T LIVING SITUATION; WILL CONTINUE TO MONITOR.
[2020-03-06] MEDS ORDERED: LEVOFLOXACIN750 MG PO (08:41)
[2020-03-06] MEDS ORDERED: SPIRONOLACTONE25 M1 PO (08:41)
--- NOTE | 2020-03-06 10:12 | NUR ---
WAS NOTIFIED BY RN THAT PT IS BEING DC'D TODAY I READ PREVIOUS NOTES FROM SW AND PT WAS WANTING CASE MGMT TO CALL [facility] THERE HAS BEEN 2 PREVIOUS ATTEMPTS TO CALL I JUST TRIED AND THEY ARE NOT ACCEPTING VOICEMAILS DUE TO HIGH VOLUME SO UNABLE TO REACH.
[2020-03-06 11:37] VITALS: BP 100/65
[2020-03-06 16:11] VITALS: BP 125/70
--- NOTE | 2020-03-06 17:24 | NUR ---
ASSUMED CARE AT SHIFT CHANGE, ALERT AND ORIENTED X4,ASSESSMENT CHARTED AND VSS. DISCUSSED DISCHARGE WITH PATIENT AND HE STATES THAT HE HAS NOT HAVE A PLACE TO GO, DR MANSFIELD NOTIFIED. REPORT GIVEN TO RN AND PATIENT WILL BE TRANSFERD TO 4W.
[2020-03-06 18:48] VITALS: BP 128/83
[2020-03-06 20:06] VITALS: BP 135/81
--- NOTE | 2020-03-07 02:51 | NUR ---
PT CARE ASSUMED WITH PT IN BED WATCHING TV.PT IS A/O X4.PT IS UP WITH STANDBY ASSIST TO THE RESTROOM.PT IS ON ROOM AIR .PT DENIED PAIN,NAUSEA AND VOMITING.WILL CONTINUE TO MONITOR
[2020-03-07 03:16] VITALS: BP 118/77
[2020-03-07 10:02] VITALS: BP 141/79
--- NOTE | 2020-03-07 13:40 | NUR ---
ASSUMED CARE AT 0700. PT IS A&O X4. PT HAS HARD DISTENDED ABD. LUNGS AND HEART SOUNDS ARE CLEAR. PT REFUSED FLU SHOT. STANDBY ASSIST. RA. VSS. IV ON RIGHT FOREARM IS INTACT AND NO SIGNS OF REDNESS OR SWELLING. PT DENIES ANY PAIN. PT IS VERY FATIGUE TO DUE NOT HAVING ALOT OF SLEEP. WILL CONTINUE TO MONITOR. CALL LIGHT WITHIN REACH. SKIN IS INTACT.
[2020-03-07 19:30] VITALS: BP 143/88
--- NOTE | 2020-03-08 14:07 | NUR ---
PT LEAVING FACILITY THIS AFTERNOON AND WAS NOT SEEN BY OT. PT HAS CLEARED QUITE A BIT AND IS GETTING AROUND HIS ROOM WITHOUT DIFFICULTY
--- NOTE | 2020-03-08 14:24 | NUR ---
CM FOLLOWED UP WIHT PT THIS AM. HE INDICATED THAT HE WAS WAITING ON CM FOR ASSISTANCE IN FINIDING SOMEWHERE TO GO THAT HE WAS HOMELESS. CM INDICATED THAT CM COWORKER HAD REACHED OUT TO [facility] ON PT'S BEHAL AND LEFT A VM WITH NO RESPONSE OF YET. THAT Remedios MEREDITH ASSIST PT IN VOCUERING HIMS MEDS AND A CAB VOUCHER TO A HOMELESS INTERMEDIATE IF PT WAS INTERESTED. MAYTE CALLED [facility] WHO MENTIONED THAT [facility] MIGHT HAVE AN OPENING. MAYTE CALLED AND SPOKE WITH MARY AT [phone] HE INDICATED THAT PT WOULD NEED [place] ID, SS CARD, OR CERTIFICATE, BE ABLE T OPAY $125.00 FOR FIRST WEEKS RENT AND BE WORKING OUTSIDE THE HOUSE. CM INFORMED PT OF THIS AND HE INDICATED HE DOESN'T HAVE AN ID. PT INDICATED [place] [address] [place], [address]. CM TOOK PT'S MEDS TO OP PHARM TO VOUCHER FRO $20.00. CM CALLED PT BACK AND HE INDICATED TAHT HE MIGHT HAVE SOMEONE COMING TO GET HIM FROM [place], [place]. CM INDICATED THAT CAB VOUCHER COULD BE PROVIDED TO BROTHER'S HOUSE OR PT [place] DC WITH FRIENDS. MED NEED TO BE PICKED UP IN OP PHARMACY BY 1800.
[2020-03-08 16:48] VITALS: BP 143/88
== END 2020-03-08 17:00 | disposition home or self-care (01) | DRG 369 ==
LOC: ER 17:24 → EROBS 19:53 → 2N 19:53 → 4W 03-06 17:56
PROVIDERS: Nurse Practitioner; Nurse Practitioner Family; ADMIT Hospitalist; ATTEND Hospitalist
PROC: 0DJ08ZZ Inspection of Upper Intestinal Tract, Via Natural or Artificial Opening Endoscopic (ICD-10-PCS; principal; 2020-03-03)
DX: I85.01 Esophageal varices with bleeding (principal); E46 Unspecified protein-calorie malnutrition; N39.0 Urinary tract infection, site not specified; R18.8 Other ascites; K76.6 Portal hypertension; K74.60 Unspecified cirrhosis of liver; G25.81 Restless legs syndrome; F10.21 Alcohol dependence, in remission; F17.210 Nicotine dependence, cigarettes, uncomplicated; D64.9 Anemia, unspecified; K72.90 Hepatic failure, unspecified without coma; B19.20 Unspecified viral hepatitis C without hepatic coma; K31.89 Other diseases of stomach and duodenum; K26.4 Chronic or unspecified duodenal ulcer with hemorrhage; Y90.9 Presence of alcohol in blood, level not specified; K29.81 Duodenitis with bleeding; Z20.828 Contact with and (suspected) exposure to other viral communicable diseases; Z88.5 Allergy status to narcotic agent; Z88.0 Allergy status to penicillin; Z68.25 Body mass index [BMI] 25.0-25.9, adult; Z79.899 Other long term (current) drug therapy; Z28.21 Immunization not carried out because of patient refusal
CPT/HCPCS: 10047; 10081; 62110; 62900; 70005

== ENCOUNTER 2020-03-16 01:06 | Emergency (ER) | payer OTHER ==
[~2020-03-16] VITALS: Ht 177.8 cm; Wt 74.8 kg
[~2020-03-16 01:06] MED LIST changes: +LEVOFLOXACIN750 MG PO; +SPIRONOLACTONE25 M1 PO
[2020-03-16 01:23] LABS: ABSOLUTE NEUTROPHILS 2.3 thou/uL (1.4-8.2); BASOPHILS 2.1 % (0.0-2.0); EOSINOPHILS 0.7 % (0.0-3.0); HEMATOCRIT 28.6 % (42.0-52.0); LYMPHOCYTES 37.9 % (24.0-44.0); MCHC 31.6 g/dL (28.0-37.0); MCV 82.3 fL (80.0-100.0); MONOCYTES 11.9 % (1.0-8.0); PLATELET COUNT 195 thou/uL (150-400); POLYS 47.4 % (36.0-66.0); RBC 3.47 mil/uL (4.50-6.00); RDW 21.1 % (10.5-14.5); WBC 4.9 thou/uL (4.0-11.0)
[2020-03-16 01:32] LABS: ANION GAP 9 mmol/L (7-16); BUN 6 mg/dL (7-18); CALCIUM 8.4 mg/dL (8.5-10.1); CHLORIDE 107 mmol/L (98-107); CO2 27 mmol/L (21-32); CREATININE 0.9 mg/dL (0.7-1.3); GLUCOSE 131 mg/dL (74-106); POTASSIUM 3.5 mmol/L (3.5-5.1); SODIUM 143 mmol/L (136-145)
[2020-03-16 01:42] LABS: ALBUMIN 2.7 g/dL (3.4-5.0); DIRECT BILIRUBIN 0.5 mg/dL (<0.1-0.2); SGOT 139 U/L (15-37); SGPT 113 U/L (16-63); TOTAL BILIRUBIN 0.9 mg/dL (0.2-1.0); TROPONIN-I <0.06 ng/mL (<0.06)
[2020-03-16 05:12] VITALS: BP 138/81
--- NOTE | 2020-03-16 07:31 | EKG ---
[address] [address] ELECTROCARDIOGRAM REPORT Name: MARIA DEL CARMEN ALARCON [facility] [id number] Admission: 03/16/20 Attend Phys: Discharge: 03/16/20 Date of : 61 Report #: [id number] [facility] ED Test Date: 2020-03-16 Test Time: 01:06:49 Pat Name: MARIA DEL CARMEN ALARCON Department: Room: Gender: M Neuropsychology Medical Consultant: BLOSSOM : 1965 Requested By: Molly Garcia Order Number: [id number] MD: Jorge Ni Measurements Intervals [place] Rate: 127 P: 66 [place]: 143 QRS: 47 QRSD: 72 T: 7 QT: 304 QTc: 442 Interpretive Statements Sinus tachycardia Compared to ECG 03/02/2020 17:25:01 No significant changes Electronically Signed On 03-16-2020 7:31:49 MULTIMEDIA AUTHORING SPECIALIST by Jorge Ni [email or web address] <ELECTRONICALLY SIGNED> By: Jorge Ni MD, [facility] 03/16/20 0731 0106 0106 Jorge Ni MD, FACC /EPI
== END 2020-03-16 05:20 | disposition home or self-care (01) ==
LOC: ER 01:06
PROVIDERS: Emergency Medicine
DX: R07.89 Other chest pain (principal); F10.920 Alcohol use, unspecified with intoxication, uncomplicated; R00.0 Tachycardia, unspecified; I10 Essential (primary) hypertension; F17.210 Nicotine dependence, cigarettes, uncomplicated; Z79.2 Long term (current) use of antibiotics; Z79.899 Other long term (current) drug therapy; Z88.5 Allergy status to narcotic agent; Z88.0 Allergy status to penicillin; Y90.8 Blood alcohol level of 240 mg/100 ml or more

== ENCOUNTER 2020-03-16 07:49 | Emergency (ER) | payer OTHER ==
[~2020-03-16] VITALS: Ht 170.2 cm; Wt 73.9 kg
[2020-03-16 08:17] LABS: ABSOLUTE NEUTROPHILS 1.7 thou/uL (1.4-8.2); BASOPHILS 1.4 % (0.0-2.0); EOSINOPHILS 0.6 % (0.0-3.0); HEMATOCRIT 26.1 % (42.0-52.0); HEMOGLOBIN 8.3 gm/dL (14.0-18.0); LYMPHOCYTES 29.7 % (24.0-44.0); MCH 25.7 pg (26.0-34.0); MCHC 31.7 g/dL (28.0-37.0); MCV 81.2 fL (80.0-100.0); MONOCYTES 11.8 % (1.0-8.0); PLATELET COUNT 146 thou/uL (150-400); POLYS 56.5 % (36.0-66.0); RBC 3.22 mil/uL (4.50-6.00); RDW 21.7 % (10.5-14.5); WBC 3.1 thou/uL (4.0-11.0)
[2020-03-16 08:23] LABS: ANION GAP 6 mmol/L (7-16); BUN 7 mg/dL (7-18); CALCIUM 8.3 mg/dL (8.5-10.1); CHLORIDE 104 mmol/L (98-107); CO2 26 mmol/L (21-32); CREATININE 0.7 mg/dL (0.7-1.3); GLUCOSE 113 mg/dL (74-106); POTASSIUM 3.5 mmol/L (3.5-5.1); SODIUM 136 mmol/L (136-145)
[2020-03-16 08:34] LABS: ALBUMIN 2.7 g/dL (3.4-5.0); DIRECT BILIRUBIN 0.6 mg/dL (<0.1-0.2); SGOT 136 U/L (15-37); SGPT 110 U/L (16-63); TOTAL BILIRUBIN 0.9 mg/dL (0.2-1.0); TOTAL PROTEIN 6.9 g/dL (6.4-8.2); TROPONIN-I <0.06 ng/mL (<0.06)
[2020-03-16 09:37] LABS: ANISOCYTOSIS 2+; MICROCYTES 1+; PLATELET ESTIMATE NORMAL; SCHISTOCYTES FEW
[2020-03-16 14:01] VITALS: BP 126/70
--- NOTE | 2020-03-16 14:22 | EKG ---
[address] [address] ELECTROCARDIOGRAM REPORT Name: MARIA DEL CARMEN ALARCON [facility] [id number] Admission: 03/16/20 Attend Phys: Discharge: 03/16/20 Date of : 61 Report #: [id number] [facility] ED Test Date: 2020-03-16 Test Time: 07:58:26 Pat Name: MARIA DEL CARMEN ALARCON Department: Room: Gender: Legal Advisor: km : 1965 Requested By: Paola Blas Order Number: [id number] MD: Jorge Ni Measurements Intervals [place] Rate: 111 P: 18 [place]: 146 QRS: 41 QRSD: 78 T: 16 QT: 335 QTc: 455 Interpretive Statements Sinus tachycardia Compared to ECG 03/16/2020 01:06:49 No significant changes Electronically Signed On 03-16-2020 14:22:06 CARBON BRUSHES ASSEMBLER by Jorge Ni [email or web address] <ELECTRONICALLY SIGNED> By: Jorge Ni MD, [facility] 03/16/20 1422 0758 0758 Jorge Ni MD, FACC /EPI
== END 2020-03-16 14:07 | disposition home or self-care (01) ==
LOC: ER 07:49
PROVIDERS: Emergency Medicine
DX: F10.920 Alcohol use, unspecified with intoxication, uncomplicated (principal); D64.9 Anemia, unspecified; R06.02 Shortness of breath; R07.89 Other chest pain; R05 Cough; F17.210 Nicotine dependence, cigarettes, uncomplicated; Z79.2 Long term (current) use of antibiotics; Z79.899 Other long term (current) drug therapy; Z88.5 Allergy status to narcotic agent; Z88.0 Allergy status to penicillin; Y90.6 Blood alcohol level of 120-199 mg/100 ml

== ENCOUNTER 2020-04-03 23:21 | Inpatient (IN) | payer OTHER ==
[~2020-04-03] VITALS: Ht 177.8 cm; Wt 87.2 kg
[2020-04-03 23:30] VITALS: BP 148/88
[2020-04-04] VITALS (41 sets, daily range): BP systolic 76–137; BP diastolic 46–87
[2020-04-04 00:24] LABS: ABSOLUTE NEUTROPHILS 1.9 thou/uL (1.4-8.2); BASOPHILS 0.4 % (0.0-2.0)
[2020-04-04 00:25] LABS: EOSINOPHILS 1.3 % (0.0-3.0); LYMPHOCYTES 36.4 % (24.0-44.0); MCH 23.7 pg (26.0-34.0); MCHC 30.1 g/dL (28.0-37.0); MCV 78.6 fL (80.0-100.0); MONOCYTES 14.3 % (1.0-8.0); PLATELET COUNT 136 thou/uL (150-400); POLYS 47.6 % (36.0-66.0); RBC 2.21 mil/uL (4.50-6.00); RDW 22.2 % (10.5-14.5)
[2020-04-04 00:29] LABS: CALCIUM 7.1 mg/dL (8.5-10.1); CREATININE 0.6 mg/dL (0.7-1.3); POTASSIUM 3.6 mmol/L (3.5-5.1)
[2020-04-04 00:31] LABS: HEMOGLOBIN 5.2 gm/dL (14.0-18.0)
[2020-04-04 00:32] LABS: HEMATOCRIT 17.4 % (42.0-52.0)
[2020-04-04 00:35] LABS: ALBUMIN 2.2 g/dL (3.4-5.0); TOTAL BILIRUBIN 0.6 mg/dL (0.2-1.0); TOTAL PROTEIN 5.9 g/dL (6.4-8.2)
[2020-04-04 00:59] LABS: APTT 26.8 Seconds (24.5-32.8); INR 1.1; PROTIME 11.4 Seconds (9.3-11.4)
[2020-04-04 01:26] LABS: URINE BILIRUBIN NEGATIVE (Negative); URINE BLOOD NEGATIVE (Negative); URINE CLARITY CLEAR; URINE COLOR YELLOW; URINE GLUCOSE-RANDOM* NEGATIVE (Negative); URINE KETONES NEGATIVE (Negative); URINE LEUKOCYTES-REFLEX NEGATIVE (Negative); URINE NITRITE-REFLEX NEGATIVE (Negative); URINE PROTEIN (DIPSTICK) NEGATIVE (Negative); URINE SPECIFIC GRAVITY 1.025 (1.005-1.035)
--- NOTE | 2020-04-04 04:58 | NUR ---
0300 - PT ARRIVED FROM ER. PT ATTACHED TO ICU MONITORS AND ASSESSED PER PROTOCOL. PATIENT RESTLESS, C/O ABD PAIN 11/19, AND ASKING FOR WATER. PT ADMITS TO USING METH WITHIN THE LAST FEW DAYS, BUT "DOES CARE FOR IT", AND DRINKS ABOUT 1 PINT WHISKEY A DAY. PT A&OX 2-3, AND STATES HE IS CURRENTLY "LIVING UNDER THE BRIDGE". YA JOYCE NOTIFIED AND ORDERS OBTAINED.
[2020-04-04 07:42] LABS: AMP/METHAMP Negative (Negative); BARBITURATES Negative (Negative); BENZODIAZEPINES Negative (Negative); COCAINE Negative (Negative); METHADONE Negative (Negative); OPIATES POSITIVE (Negative); PCP Negative (Negative)
--- NOTE | 2020-04-04 10:20 | EKG ---
[address] [address] ELECTROCARDIOGRAM REPORT Name: MARIA DEL CARMEN ALARCON Room #: 242-P [facility] IN ..#: [id number] Admission: 04/04/20 Attend Phys: Shimon Hernandez MD Discharge: Date of : 61 Report #: [id number] [facility] ED Test Date: 2020-04-03 Test Time: 23:56:36 Pat Name: MARIA DEL CARMEN ALARCON Department: Room: 242 Gender: M Career Development Specialist: LISA : 1965 Requested By: Christ De La Paz Order Number: [id number] MD: Armond Virk Measurements Intervals [place] Rate: 105 P: 64 NE: 139 QRS: 33 QRSD: 85 T: 30 QT: 351 QTc: 465 Interpretive Statements Sinus tachycardia Compared to ECG 03/16/2020 07:58:26 No significant changes Electronically Signed On 04-04-2020 10:19:50 CONSTRUCTION SKILLS TEACHER by Armond Virk [email or web address] <ELECTRONICALLY SIGNED> By: Armond Virk MD 04/04/20 1019 [id number] [id number] MD FREEMAN Rizvi
[2020-04-04 12:01] LABS: FOLIC ACID 12.4 ng/mL (8.6-58.9)
[2020-04-05] VITALS (146 sets, daily range): BP systolic 97–180; BP diastolic 65–99
[2020-04-05 03:50] LABS: HEMOGLOBIN 8.3 gm/dL (14.0-18.0); MCH 26.6 pg (26.0-34.0); MCHC 32.1 g/dL (28.0-37.0); MCV 82.9 fL (80.0-100.0); RBC 3.13 mil/uL (4.50-6.00); RDW 20.6 % (10.5-14.5)
[2020-04-05 04:09] LABS: CALCIUM 7.5 mg/dL (8.5-10.1); CREATININE 0.9 mg/dL (0.7-1.3); POTASSIUM 4.3 mmol/L (3.5-5.1)
--- NOTE | 2020-04-05 13:19 | NUR ---
CM COMPLETED THE INITIAL ASSESSMENT, PT PRESENTED TO ED W/ALCOHOL INTOXICATION. PRESENTED W/DELIRIUM. PT ENDORESE ABDOMEN PX. SPK W/PT LISTED CONTACTED, IFRAH, PT WAS ON ENHANCED PRECAUTIONS. IFRAH STATED PT HASNT WORKED FOR HIM IN ABOUT 4/5 MONTHS. IFRAH STATED PT LIVES UNDERNEATH A BRIDGE. BOD STATED TO CONTACT HIM AT D/C, HE AND HIS ARE WILLING TO GIVE PT A RIDE BACK TO WHERE HE RESIDES (UNDER A BRIDGE). PER RN PT IS SCHEDULED FOR EGD TODAY. PT WAS ON 5L O2 NC. CM TO CONT TO FOLLOW.
--- NOTE | 2020-04-05 19:27 | NUR ---
PT IS NOT PROGRESSING TOWARDS DISCHARGE TODAY, EGD WAS DONE AT BEDSIDE, IT WAS LED BY GI MD WITH ANESTHEGIOLOGIST WELL. PER MD, NO SIGNIFICANT FINDINGS FOR THE PT IN COMPARISON WITH THE FEBRUARY EGD. PT IS NOT BACK ON FULL LIQUID DIET, IS HUNGRY. STILL SCORING ON CIWA Q4H PER ORDER. CIWA FOR PT WAS 4 THORUHGOUT THE SHIFT, PT SLEPT FOR MAJORITY OF THE SHIFT. URINE OUTPUT WAS EXCELLENT THIS SHIFT. WILL HAVE TO WAIT FURTHER MD GUIDANCE ON PROCEEDING WITH PLAN OF CARE POST EGD. RN SIGNING OFF
[2020-04-06] VITALS (45 sets, daily range): BP systolic 106–204; BP diastolic 66–127
[2020-04-06 05:39] LABS: HEMATOCRIT 28.5 % (42.0-52.0); MCHC 31.7 g/dL (28.0-37.0); MCV 82.2 fL (80.0-100.0); PLATELET COUNT 67 thou/uL (150-400); RBC 3.47 mil/uL (4.50-6.00); RDW 20.8 % (10.5-14.5); WBC 2.1 thou/uL (4.0-11.0)
[2020-04-06 05:48] LABS: CALCIUM 7.4 mg/dL (8.5-10.1); CREATININE 0.8 mg/dL (0.7-1.3); POTASSIUM 4.1 mmol/L (3.5-5.1)
[2020-04-06 08:29] LABS: ABSOLUTE NEUTROPHILS 1.4 thou/uL (1.4-8.2)
[2020-04-06 08:30] LABS: ANISOCYTOSIS 2+
--- NOTE | 2020-04-06 09:00 | P ---
[facility] [address] [place] [address] PROCEDURE REPORT Name: MARIA DEL CARMEN ALARCON Room #: 242-P [facility] IN M.R.#: [id number] Admission: 04/04/20 Attend Phys: Yakov Medina MD Discharge: Date of : 61 Report #: [id number] THIS REPORT FOR: cc: NO FAMILY PHYSICIAN or PCP NO FAMILY PHYSICIAN or PCP Rodriguez Solano MD ~ DATE OF SERVICE: 04/05/2020 LOCATION: [facility] ICU bed 242. TIME: 2:30, in the afternoon. PROCEDURE: Esophagogastroduodenoscopy. INDICATIONS FOR PROCEDURE: Anemia, history of portal hypertension, esophageal varices and a history of duodenal ulcer. DESCRIPTION OF PROCEDURE: The adult endoscope was introduced through the mouth once the patient was sedated with anesthesia, monitored anesthesia care and advanced all the way to the second portion of the duodenum, then withdrawn with careful inspection. Findings were a small 5 mm duodenal ulcer in the second portion of the duodenum without stigmata of bleeding. Moderate portal hypertensive gastropathy and small esophageal varices that were nonbleeding. No biopsies were obtained. There were no complications observed. RECOMMENDATIONS: To continue supportive care and PPI. Monitor hemoglobin, hematocrit and transfuse as needed. Continue treatment for alcohol withdrawal and advance diet as tolerated. <ELECTRONICALLY SIGNED> By: Rodriguez Solano MD 04/06/20 0900 1436 1920 Rodriguez Solano MD /joseph
--- NOTE | 2020-04-06 17:27 | NUR ---
Patient not progressing towards plan of care as evidenced by alcohol withdrawl and increased ciwa score. He required ativan IV as this afternoon his ciwa score was above 20. He pulled at lines, took off monitor, pulled at cerda, pulled at IVs, attempted multiple times to get out of bed to leave, was confused and aggitated. His breathing is more calm at this time, as he was expressing he couldn't talk without becoming short of breath earlier today, breathing treatments ordered and he received them. No futher orders at this time as patient is resting quietly and calmly at this time. Plan of care is to continue to assist with detox symptoms based on his ciwa score and clinical presentation.
[2020-04-07] VITALS (30 sets, daily range): BP systolic 105–174; BP diastolic 67–105
--- NOTE | 2020-04-07 05:55 | NUR ---
Lab was trying to get labs from pt and reported he was cold. temp taken of pt and was 93F at 0430. pt put on bear hugger for warming
[2020-04-07 11:22] LABS: HEMATOCRIT 30.9 % (42.0-52.0); HEMOGLOBIN 9.7 gm/dL (14.0-18.0); MCH 25.9 pg (26.0-34.0); MCHC 31.4 g/dL (28.0-37.0); MCV 82.4 fL (80.0-100.0); RBC 3.75 mil/uL (4.50-6.00); RDW 21.1 % (10.5-14.5); WBC 2.5 thou/uL (4.0-11.0)
[2020-04-07 11:34] LABS: CALCIUM 7.6 mg/dL (8.5-10.1); CREATININE 0.6 mg/dL (0.7-1.3); MAGNESIUM 1.4 mg/dL (1.8-2.4); POTASSIUM 3.9 mmol/L (3.5-5.1)
--- NOTE | 2020-04-07 13:30 | NUR ---
ORDERS FOR EVAL AND TREAT. HAVE ATTEMPTED TIMES 3 DAYS AND Pt NOT APPROPRIATE FOR THERAPY EACH TIME. SPOKE WITH NURSING AND WILL PLACE ON HOLD AND AWAIT NEW ORDERS TO SEE WHEN APPROPRIATE FOR THERAPY
--- NOTE | 2020-04-07 16:08 | NUR ---
PATIENT AWAKENS AT TIMES WHEN MAXED ON PRECEDEX GTT. WHEN HE DOES HE IS CONFUSED AND YELLING, PULLING AT LINE AND HALLUCINATING. DIFFICULT TO REDIRECT. RESTRAINTS STILL REMAIN. WILL CONTINUE TO MONITOR AND TITRATE DOWN PRECEDEX GTT TOLERATED.
[2020-04-08] VITALS (26 sets, daily range): BP systolic 97–150; BP diastolic 47–82
[2020-04-08 04:53] LABS: HEMATOCRIT 30.8 % (42.0-52.0); HEMOGLOBIN 9.7 gm/dL (14.0-18.0); MCHC 31.4 g/dL (28.0-37.0); MCV 82.9 fL (80.0-100.0); RBC 3.72 mil/uL (4.50-6.00); RDW 21.1 % (10.5-14.5); WBC 2.7 thou/uL (4.0-11.0)
[2020-04-08 05:15] LABS: ALBUMIN 1.7 g/dL (3.4-5.0); CALCIUM 7.6 mg/dL (8.5-10.1); CREATININE 0.8 mg/dL (0.7-1.3); MAGNESIUM 1.5 mg/dL (1.8-2.4); POTASSIUM 3.8 mmol/L (3.5-5.1); TOTAL BILIRUBIN 1.1 mg/dL (0.2-1.0); TOTAL PROTEIN 4.7 g/dL (6.4-8.2)
--- NOTE | 2020-04-08 05:47 | NUR ---
ASSUMED CARE OF PATIENT AT 1900. CIWAA RANGES FROM 9-19. TREATED PER PROTOCOL. ABLE TO EAT SOME ICE CREAM, GIVEN ICE CHIPS. SHOULD BE ABLE TO TAKE PO MEDS TODAY. RESTRAINTS REMAIN IN PLACE DUE TO PATIENT IMPULSIVE AND ANXIOUSNESS. ORIENTED TO SELF. DID STATE AT ONE TIME HE IS IN THE HOSPITAL. NOT PROGRESSING TOWARDS POC GOALS AT THIS TIME.
--- NOTE | 2020-04-08 07:14 | NUR ---
ASSUMMED CARE OF PATIENT FROM NIGHT NURSE, LEEROY HUNTER.
--- NOTE | 2020-04-08 15:42 | NUR ---
CHART REVIEWED, PT REMAINS ON CIWA PROTOCOL, IV ABX, PRECEDEX GTT. FOLLOWING TO ASSIST ABLE.
--- NOTE | 2020-04-08 18:38 | NUR ---
PATIENT IS SLOWLY PROGRESSING TOWARDS OUTCOME GOALS EVIDENT BY, SLOWLY TAPPERING PRECEDEX, AND CWAL SCORES ARE 10 DOWN TO 8. FED DIET, ENCOURAGED TO FEED SELF BUT HAND TO MOUTH COORDINATION IS POOR, UNSTEADY. URINE OUTPUT IS ADEQUATE.
[2020-04-09] VITALS (17 sets, daily range): BP systolic 126–160; BP diastolic 72–94
[2020-04-09 02:42] LABS: HEMATOCRIT 32.8 % (42.0-52.0); HEMOGLOBIN 10.3 gm/dL (14.0-18.0); MCH 25.6 pg (26.0-34.0); MCHC 31.4 g/dL (28.0-37.0); MCV 81.5 fL (80.0-100.0); RBC 4.03 mil/uL (4.50-6.00)
[2020-04-09 03:11] LABS: ALBUMIN 1.9 g/dL (3.4-5.0); CREATININE 0.8 mg/dL (0.7-1.3); MAGNESIUM 1.3 mg/dL (1.8-2.4); POTASSIUM 3.5 mmol/L (3.5-5.1); TOTAL BILIRUBIN 0.8 mg/dL (0.2-1.0)
--- NOTE | 2020-04-09 04:47 | NUR ---
ASSUMED CARE OF PATIENT AT 1900. ALERT TO SELF, BECAME MORE CONVERSANT THROUGH THE NIGHT. RESTRAINTS REMOVED, PRECEDEX TITRATED OFF. CAN BECOME AGITATED, BUT IS REDIRECTABLE. 2 LARGE BOWEL MOVEMENTS THIS SHIFT. ABLE TO MAKE NEEDS KNOWN. PROGRESSING TOWARDS POC GOALS.
--- NOTE | 2020-04-09 10:24 | NUR ---
Assess due to length of stay. Admit with etoh intoxication and abdominal pain. Hx ESLD. Has been on full liquids past 4 days due to hallucinations, confusion. Pt taking oral intake very well with feed assist. On vitamin, thiamine. Usual wt trend 160-170s, current wt 195 lb? Spoke with RN and agreement for diet advancement-RN to address with physician. Provider has indicated protein calorie malnutrition: RD agree likely, but not enough information to make nutrition diagnosis. Nutrition interventions in place.
--- NOTE | 2020-04-09 17:45 | NUR ---
ASSUMMED CARE FROM AT 1300, PATIENT SLEEPING THIS AFTERNOON. CIWA SCORE AT 1600 1. AWAITING TRANSFER TO THE FLOOR. ABLE TO FEED SELF AND ASKING FOR DINNER TRAY. DIET SERVED.
[2020-04-10] VITALS (22 sets, daily range): BP systolic 110–177; BP diastolic 72–108
[2020-04-10 03:46] LABS: HEMATOCRIT 30.3 % (42.0-52.0); HEMOGLOBIN 9.5 gm/dL (14.0-18.0); MCH 25.6 pg (26.0-34.0); MCHC 31.5 g/dL (28.0-37.0); MCV 81.2 fL (80.0-100.0); RBC 3.74 mil/uL (4.50-6.00); RDW 22.3 % (10.5-14.5); WBC 3.7 thou/uL (4.0-11.0)
[2020-04-10 03:58] LABS: ALBUMIN 1.9 g/dL (3.4-5.0); CALCIUM 7.4 mg/dL (8.5-10.1); CREATININE 0.7 mg/dL (0.7-1.3); MAGNESIUM 1.4 mg/dL (1.8-2.4); POTASSIUM 3.7 mmol/L (3.5-5.1); TOTAL PROTEIN 5.1 g/dL (6.4-8.2)
--- NOTE | 2020-04-10 05:04 | NUR ---
SLEPT PART OF SHIFT. MOVES AROUND IN BED BY SELF. TOLERATING NECTAR THICK LIQUIDS. ATIVAN GIVEN PER CIWA SCORES AND INCREASED AGITATION. YELLS OUT AND CUSSES AT TIMES. WORKING ON GOALS AND PLAN OF CARE FOR NOC. PROGRESSING TOWARDS TRANSFER OUT OF ICU TO FLOOR. CONTINUE TO ASSES CLOSELY.
--- NOTE | 2020-04-10 06:01 | NUR ---
0532 BP ELEVATED 177/108. NOTIFIED HEAVY ANTIARMOR WE[employer]ONS INFANTRYMAN AND HYDRALIZINE 10MG GIVEN X1. CONTINUE TO ASSES.
--- NOTE | 2020-04-10 18:29 | NUR ---
PT TRANSFERED FROM ICU. REPORT RECIEVED FROM RN. PT ALERT X3 WITH FORGETFULNES. DENIES SOB, DENIES CHEST PAIN, VOICED HE HAS CHRONIC PAIN. TREATED WITH PO ATIVAN PRIOR TO TRANSFER. EDEMA TO UPPER AND LOWER EXTREMITIES, SCROTUM AND PENIS. HO IN PLACE AT THIS TIME. CALL LIGHT IN REACH. BED ALARM ON.
--- NOTE | 2020-04-10 18:41 | NUR ---
PT CONTINUES ON ETOH WITHDRAW PROTOCOL. GIVEN PO ATIVAN X3. UP TO CHAIR FOR 1.5HRS WITH ASSISTANCE X1. ENCOURAGED PT TO BE UP TO CHAIR MUCH POSSIBLE BUT RESISTANT TO ACTIVITY AND BEING OUT OF BED. TOLERATING MECH SOFT NECTAR THICK LIQUID DIET. ORDER TO TRANSFER. REPORT CALLED TO ROBERTO HUNTER. TRANSFERRED TO CCU AND ALL PT BELONGINGS SENT WITH PATIENT.
[2020-04-11 04:45] VITALS: BP 146/96
--- NOTE | 2020-04-11 05:07 | NUR ---
PT ALERT AND ORIENTED X 3, DISORIENTED ABOUT TIME. HE IS ALSO PERIODICALLY CONFUSED. CIWA SCORES OF 12. NO AGGRESSIVE BEHAVIOR NOTES. PT SOME WHAT EASY TO REORIENT. VITALS STABLE. WILL CONTINUE WITH POC.
[2020-04-11 07:25] VITALS: BP 155/97
[2020-04-11 11:25] VITALS: BP 133/85
--- NOTE | 2020-04-11 14:10 | NUR ---
ORIENTED X3. CIWA SCORE 12, ATIVAN ADMIN ORDERED. HO DISCONTINUED AND HAS VOIDED PER URINAL. FALL PRECAUTIONS IN PLACE, FREQUENT CHECKS, CLOSE TO NURSES' STATION.
[2020-04-11 16:16] VITALS: BP 131/88
[2020-04-11 19:20] VITALS: BP 126/80
[2020-04-12 03:08] LABS: HEMATOCRIT 28.2 % (42.0-52.0); HEMOGLOBIN 8.8 gm/dL (14.0-18.0); MCH 25.5 pg (26.0-34.0); MCHC 31.3 g/dL (28.0-37.0); MCV 81.3 fL (80.0-100.0); RBC 3.46 mil/uL (4.50-6.00); RDW 23.1 % (10.5-14.5); WBC 2.2 thou/uL (4.0-11.0)
--- NOTE | 2020-04-12 03:16 | NUR ---
PT IS ALERT AND ORIENTED X3. LUNGS ARE CLEAR. ON ROOM AIR. PT IS ON CIWA PROTOCAL SEE CHARTING. LORAZEPAM GIVEN TO HELP PT. SEEMS TO HELP AT THIS CURENT TIME. ABDOMEN IS ROUND AND FIRM . BOWEL SOUNDS HYPOACTIVE. JAUNDICE OF THE SKIN NOTED. PT IS INCONTINENT AND BEDREST. CHANGED LINEN FOR PT. CALL LIGHT WITHIN REACH. BED ALARM ON FOR SAFETY TO MAINTAIN. WILL CONTINUE TO MONITOR AND ASSESS PER NURSING. ANXIOUS AND IMPULSIVE AT TIMES PT IS DURING THE SHIFT. AND AGITATION NOTED TOO
[2020-04-12 03:23] LABS: ALBUMIN 1.9 g/dL (3.4-5.0); CALCIUM 7.7 mg/dL (8.5-10.1); CREATININE 0.6 mg/dL (0.7-1.3); MAGNESIUM 1.7 mg/dL (1.8-2.4); POTASSIUM 4.1 mmol/L (3.5-5.1); TOTAL BILIRUBIN 0.6 mg/dL (0.2-1.0); TOTAL PROTEIN 5.4 g/dL (6.4-8.2)
[2020-04-12 03:30] VITALS: BP 121/86
[2020-04-12 07:20] VITALS: BP 122/79; BP 151/99
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
--- NOTE | 2020-04-12 14:25 | NUR ---
ETOH WITHDRAWLS NEARING AN END. DR. BRYANT CONSULTED. PT EVALUATES; HE IS WEAK AND UNSTEADY, CRUISING WHILE HE HOLDS ONTO FURNITURE. SR PER TELE. FALL PRECAUTIONS IN PLACE.
[2020-04-12 15:05] VITALS: BP 142/79
[2020-04-12 20:45] VITALS: BP 164/94
[2020-04-13 03:24] VITALS: BP 146/94
--- NOTE | 2020-04-13 05:02 | NUR ---
CARE ASSUMED 1900. PT AO X 3. PT IS SCHEDULED FOR A THORACENTHESIS THIS AM. KEPT NPO OVERNIGHT. VOIDING PER THE URINAL AND USING BEDSIDE COMMODE. PERIODICALLY DISORIENTED BUT ABLE TO REORIENT. NO OTHER CONCERNS. REMAINS SR ON THE MONITOR. WILL MONITOR.
[2020-04-13 07:15] VITALS: BP 138/96
[2020-04-13 09:16] LABS: COLOR YELLOW; SOURCE ABDOMINAL; TOTAL VOLUME 35 mL
[2020-04-13 09:17] LABS: CLARITY CLEAR
[2020-04-13 09:23] LABS: BF NUCLEATED CELLS 205 /mm3; BF RBC 109 /mm3
[2020-04-13 10:23] LABS: BF MACROPHAGE 48 %; BF NEUTROPHILS 6 %
--- NOTE | 2020-04-13 11:26 | NUR ---
Assumed patient care around 11:15am, patient checked, resting in bed, claiming he needed to sleep for a while, did not want to be bothered.
[2020-04-13 11:30] VITALS: BP 108/57
--- NOTE | 2020-04-13 13:54 | NUR ---
Patient agreeable to homeless senior care. Sp with [facility]. They have bed avail however patient at this time too weak to discharge.
[2020-04-13 15:15] VITALS: BP 115/70
--- NOTE | 2020-04-13 18:15 | NUR ---
Patient had two big volume of bowlmovement, formed, brown color. Complains of pain in stomach. no n/v.
[2020-04-13 19:44] VITALS: BP 115/72
[2020-04-14 04:10] VITALS: BP 134/90
--- NOTE | 2020-04-14 05:31 | NUR ---
ASSUME CARE 1900. PT/VITALS STABLE. INTERMITTENT GENERALIZED PAIN. POOR TOLERANCE TO ACTIVITY. COULD BENEFIT FROM MORE PT/OT. A/O X 4 BUT FORGETFUL SOMETIMES. MORE APPROPRAITE WITH COMMUNICATING NEEDS AND COOPERATING WITH CARE. NO DISTRESS NOTED THROUGH THE NIGHT. ASSESSMENT CHARTED. PROGRESSING WELL WITH POC. PLAN IS TO CONTINUE TO MONITOR LIVER FUNCTION AND FOR OVERALL HEALTH IMPROVEMENT. WILL CONTINUE TO MONITOR AND FOLLOW WITH POC
[2020-04-14 07:56] VITALS: BP 137/91
[2020-04-14 14:09] LABS: SOURCE ABDOMINAL
[2020-04-14 15:52] VITALS: BP 99/61
[2020-04-14 17:30] VITALS: BP 142/84
--- NOTE | 2020-04-14 18:09 | NUR ---
Patient got up to bed commode properly, finished meal 100%. Had one bowlmovement, formed, large, light brown.
[2020-04-14 18:53] VITALS: BP 137/90
--- NOTE | 2020-04-14 19:41 | NUR ---
Received pt from 2 [place], vs stable opc folloed with no signs or verbalizations of distress noted. [facility]
[2020-04-15 04:06] VITALS: BP 138/94
--- NOTE | 2020-04-15 04:21 | NUR ---
RECIEVED CARE OF THIS PATIENT AT 1900. PATIENT ALERT AND ORIENTED X3, PERSON, PLACE AND TIME, NOT TO SITUATION. ABD FIRM DISTENDED WITH ASCITES. SKIN IS JAUNDICED. SCRATOL AND PENILE EDEMA. C/O PAIN. MED GIVEN. SLEPT MOST OF NIGHT.
[2020-04-15 07:36] VITALS: BP 141/89
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
--- NOTE | 2020-04-15 10:58 | NUR ---
SW reviewed chart and spoke with nursing and attending physician. Pt was transferred to from . Pt is not requiring telemetry. SW met with pt to discuss discharge plan. Pt is agreeable with going to [facility] or another [facility]. Pt states he had a friend who has used [facility] in the past for services. Pt will need COVID test prior to discharge in order to be accepted to [facility] if a medical bed is available. Pt states he feels stronger today. SW is following to assist as needed with discharge planning.
[2020-04-15 15:59] VITALS: BP 121/81
[2020-04-15 19:07] LABS: BODY FLUID ALBUMIN 0.4 g/dL (Not Estab.); BODY FLUID AMYLASE 43 U/L (()); BODY FLUID GLUCOSE 96 mg/dL (()); BODY FLUID LDH 44 IU/L (()); BODY FLUID PROTEIN 0.9 g/dL (())
[2020-04-15 19:30] VITALS: BP 130/83
[2020-04-16 03:38] VITALS: BP 142/99
--- NOTE | 2020-04-16 03:54 | NUR ---
Assumed pt care at 1900. Pt is alert and oriented but forgetful. No sign of distress noted in pt. Pt is stable, laying in bed. Fall precaution in place. Denies current pain. Assessment completed and documented. Scheduled meds administered to pt. Pain med administered to pt. No acute event overnight. Pt is pending discharge. Continue to monitor. No further needs at this time.
[2020-04-16 07:10] VITALS: BP 141/92
[2020-04-16] MEDS ORDERED: LACTULOSE20 GM/30 M PO (08:04)
[2020-04-16] MEDS ORDERED: LASIX 40 MG TAB40 M1 PO (08:04)
[2020-04-16 09:56] VITALS: BP 141/92
--- NOTE | 2020-04-16 10:07 | PATH ---
[facility] [address] [place] [address] PATHOLOGY RPT PROCEDURE Name: MARIA DEL CARMEN ALARCON Room #: 435-P [facility] IN .R.#: [id number] Admission: 04/04/20 Date of : 61 Discharge: Report #: [id number] Path Case #: [id number] Note [facility] Accession Number: [id number] TESTS RESULT FLAG UNITS REF RANGE LAB Clinician Provided Cytology Information No. of containers..01 Other (Miscellaneous) Source: 01 ABDOMINAL FLUID DIAGNOSIS: 02 ABDOMINAL FLUID NEGATIVE FOR MALIGNANT EPTHEHLIAL CELLS. REACTIVE MESOTHELIAL CELLS ARE PRESENT. THIS INTERPRETATION INCLUDES EVALUATION OF A CELL BLOCK. Pathologist ICD10: 02 K92.2 Signed out by: 02 Charlene Bunch MD, Pathologist NPI- [id number] Performed by: 01 Candie Amaya, Light Armored Vehicle Officer ([facility]) Gross description: 01 10ML, PALE YELLOW, 1 TP 1 CB /LCS 04/14/2020 1819 Local FLAG LEGEND: L-Low Normal,H-High Normal,LL-Alert Low,HH-Alert High <-Panic Low,>-Panic High,A-Abnormal,AA-Critical Abnormal Performed at: [address] [place] [address] Antonio Hansen MD, [address] [address] Charlene Bunch MD, Specimen Comment: A courtesy copy of this report has been sent to [phone] Specimen Comment: [id number] Specimen Comment: Report sent to / DR HOSKINS Specimen Comment: A duplicate report has been generated due to demographic updates. Performed at: [address], [place], [place] [id number] MD Antonio Hansen MD Phone: [phone]
--- NOTE | 2020-04-16 11:28 | NUR ---
PT CARE ASSUMED AT 0700. A&Ox3. PT DISCHARGING TO [facility]. WE ARE PROVIDING MEDICATIONS. KNIFE AND CIGARETTES RETURNED FROM SECUR[facility]. MEDICATIONS RETURNED THAT WERE BEING HELD IN PHARMACY. PAIN MEDICATION GIVEN WITH ATIVAN FOR GENERALIZED PAIN. URINAL AT BEDSITE. IV PATENT WITH NO REDNESS OR EDEMA, SALINE LOCKED. IV REMOVED. FALL PROTOCOLL IN PLACE. CALL LIGHT IN REACH. WILL CONTINUE TO MONITOR.
--- NOTE | 2020-04-16 12:18 | NUR ---
zuleima spk w/radha, rn at [facility]. there is a bed avail. pt has to arrive prior to 1500. pt and rn, jesus, both, notified. jesus retrieved pt's med from pharm and cab voucher. cm confirmed w/pharmacy pt's [facility] meds were $25.46. cm executive kitchen manager, hakan, notified of [facility] on [place] call. cm faxed pt's clinicals to radha at [phone] -fax. krystal from pt, gave pt a walker that had been donated to the hospital, but after obeserving pt htis a.m., krystal stated pt giat was improved so he prob doesnt need to use walker.
== END 2020-04-16 12:21 | disposition home or self-care (01) | DRG 368 ==
LOC: ER 23:21 → EROBS 04-04 02:05 → ICU 04-04 02:05 → 2N 04-10 18:21 → 4S 04-14 17:13
PROVIDERS: Emergency Medicine; Internal Medicine; Nurse Practitioner; Nurse Practitioner Family; ADMIT Hospitalist; ATTEND Hospitalist
PROC: 30233N1 Transfusion of Nonautologous Red Blood Cells into Peripheral Vein, Percutaneous Approach (ICD-10-PCS; principal; 2020-04-04)
PROC: 0DJ08ZZ Inspection of Upper Intestinal Tract, Via Natural or Artificial Opening Endoscopic (ICD-10-PCS; 2020-04-05)
PROC: 0W9G3ZZ Drainage of Peritoneal Cavity, Percutaneous Approach (ICD-10-PCS; 2020-04-13)
DX: I85.01 Esophageal varices with bleeding (principal); E43 Unspecified severe protein-calorie malnutrition; D61.818 Other pancytopenia; D62 Acute posthemorrhagic anemia; N39.0 Urinary tract infection, site not specified; K56.7 Ileus, unspecified; F10.139 Alcohol abuse with withdrawal, unspecified; K26.4 Chronic or unspecified duodenal ulcer with hemorrhage; F10.129 Alcohol abuse with intoxication, unspecified; K52.9 Noninfective gastroenteritis and colitis, unspecified; F17.210 Nicotine dependence, cigarettes, uncomplicated; K74.60 Unspecified cirrhosis of liver; Z60.2 Problems related to living alone; K31.89 Other diseases of stomach and duodenum; G31.2 Degeneration of nervous system due to alcohol; K70.11 Alcoholic hepatitis with ascites; B19.20 Unspecified viral hepatitis C without hepatic coma; R41.0 Disorientation, unspecified; Z20.822 Contact with and (suspected) exposure to COVID-19; Z86.19 Personal history of other infectious and parasitic diseases; Z88.6 Allergy status to analgesic agent; Z88.0 Allergy status to penicillin; Z59.0 Homelessness
CPT/HCPCS: 10078; 10081; 10102; 10797; 62110; 62900; 85076

== ENCOUNTER 2020-11-20 22:31 | Inpatient (IN) | payer OTHER ==
[~2020-11-20] VITALS: Ht 177.8 cm; Wt 71.5 kg
[~2020-11-20 22:31] MED LIST changes: +LACTULOSE20 GM/30 M PO; +LASIX 40 MG TAB40 M1 PO
[2020-11-20 22:32] VITALS: BP 120/77
[2020-11-20 22:48] LABS: ABSOLUTE NEUTROPHILS 2.7 thou/uL (1.4-8.2); BASOPHILS 0.9 % (0.0-2.0); EOSINOPHILS 1.1 % (0.0-3.0); HEMATOCRIT 32.7 % (42.0-52.0); HEMOGLOBIN 10.8 gm/dL (14.0-18.0); LYMPHOCYTES 33.5 % (24.0-44.0); MCH 25.7 pg (26.0-34.0); MCHC 33.1 g/dL (28.0-37.0); MCV 77.7 fL (80.0-100.0); MONOCYTES 12.6 % (1.0-8.0); PLATELET COUNT 95 thou/uL (150-400); POLYS 51.9 % (36.0-66.0); RBC 4.21 mil/uL (4.50-6.00); RDW 20.4 % (10.5-14.5); WBC 5.2 thou/uL (4.0-11.0)
[2020-11-20 23:00] LABS: CALCIUM 7.4 mg/dL (8.5-10.1); CREATININE 0.9 mg/dL (0.7-1.3); POTASSIUM 3.6 mmol/L (3.5-5.1)
[2020-11-20 23:07] LABS: ALBUMIN 2.3 g/dL (3.4-5.0); TOTAL BILIRUBIN 1.1 mg/dL (0.2-1.0); TOTAL PROTEIN 5.7 g/dL (6.4-8.2)
--- NOTE | 2020-11-21 05:14 | NUR ---
UP TO BSC W/ ASSISTANCE.
[2020-11-21 10:07] LABS: URINE BILIRUBIN NEGATIVE (Negative); URINE BLOOD NEGATIVE (Negative); URINE CLARITY CLEAR; URINE COLOR YELLOW; URINE GLUCOSE-RANDOM* NEGATIVE (Negative); URINE KETONES NEGATIVE (Negative); URINE LEUKOCYTES-REFLEX NEGATIVE (Negative); URINE NITRITE-REFLEX NEGATIVE (Negative); URINE PROTEIN (DIPSTICK) NEGATIVE (Negative); URINE SPECIFIC GRAVITY <= 1.005 (1.005-1.035); URINE UROBILINOGEN >= 8.0 E.U./dl (0.2-1.0)
--- NOTE | 2020-11-21 11:53 | EKG ---
[address] [address] ELECTROCARDIOGRAM REPORT Name: MARIA DEL CARMEN ALARCON Room #: 170-5 ADM IN .R.#: [id number] Admission: 11/21/20 Attend Phys: Kiran Petty MD Discharge: Date of : 61 Report #: [id number] [facility] ED Test Date: 2020-11-20 Test Time: 22:50:29 Pat Name: MARIA DEL CARMEN ALARCON Department: Room: 170 Gender: M Harpoon Engagement Planning Operator: OUSMANE : 1965 Requested By: Leon David Order Number: [id number] MD: Tim Burrows Measurements Intervals [place] Rate: 103 P: 55 SD: 147 QRS: 36 QRSD: 91 T: 41 QT: 379 QTc: 496 Interpretive Statements Sinus tachycardia Probable left atrial enlargement Borderline prolonged QT interval Compared to ECG 04/03/2020 23:56:36 No significant changes Electronically Signed On 11-21-2020 11:52:50 CDT by Tim Burrows [email or web address] <ELECTRONICALLY SIGNED> By: Tim Burrows MD 11/21/20 1152 2250 2250 Tim Burrows MD /JERED
[2020-11-22 06:57] LABS: HEMATOCRIT 32.5 % (42.0-52.0); HEMOGLOBIN 10.6 gm/dL (14.0-18.0); MCH 25.8 pg (26.0-34.0); MCHC 32.5 g/dL (28.0-37.0); MCV 79.4 fL (80.0-100.0); RBC 4.09 mil/uL (4.50-6.00)
[2020-11-22 07:00] LABS: INR 1.14; PROTIME 12.4 Seconds (10.5-12.1)
[2020-11-22 07:04] LABS: ALBUMIN 2.1 g/dL (3.4-5.0); CALCIUM 7.8 mg/dL (8.5-10.1); CREATININE 0.8 mg/dL (0.7-1.3); TOTAL BILIRUBIN 1.5 mg/dL (0.2-1.0); TOTAL PROTEIN 5.7 g/dL (6.4-8.2)
--- NOTE | 2020-11-22 07:04 | NUR ---
TOOK OVER CARE FROM DALE LUJAN AT THIS TIME
--- NOTE | 2020-11-22 07:34 | EKG ---
[place] [address] [facility] [address] [address] ELECTROCARDIOGRAM REPORT Name: MARIA DEL CARMEN ALARCON Room #: 170-5 ADM IN .R.#: [id number] Admission: 11/21/20 Attend Phys: Kiran Petty MD Discharge: Date of : 61 Report #: [id number] [facility] ED Test Date: 2020-11-21 Test Time: 17:03:25 Pat Name: MARIA DEL CARMEN ALARCON Department: Room: 170 5 Gender: M Firer Boiler: : 1965 Requested By: Shimon Hernandez Order Number: [id number] MD: Liu Reeves Measurements Intervals [place] Rate: 170 P: [place]: QRS: 46 QRSD: 77 T: -12 QT: 269 QTc: 453 Interpretive Statements Atrial fibrillation with rapid V-rate Repolarization abnormality, prob rate related Compared to ECG 11/20/2020 22:50:29 Sinus tachycardia no longer present Electronically Signed On 11-22-2020 7:34:01 CDT by Liu Reeves [email or web address] <ELECTRONICALLY SIGNED> By: Liu Reeves MD, [facility] 11/22/20 0734 02 02 Liu Reeves MD, FAC /EPI
[2020-11-22 12:26] VITALS: BP 117/74
[2020-11-22 12:36] VITALS: BP 117/74
--- NOTE | 2020-11-22 16:18 | EKG ---
[address] [address] ELECTROCARDIOGRAM REPORT Name: MARIA DEL CARMEN ALARCON Room #: 214-P [facility] IN .R.#: [id number] Admission: 11/21/20 Attend Phys: Shimon Hernandez MD Discharge: Date of : 61 Report #: [id number] [facility] ED Test Date: 2020-11-22 Test Time: 08:22:50 Pat Name: MARIA DEL CARMEN ALARCON Department: Room: 214 Gender: M Venetian Blind Installer: : 1965 Requested By: Georgia Hauser Order Number: [id number] MD: Liu Reeves Measurements Intervals [place] Rate: 129 P: [place]: QRS: 24 QRSD: 80 T: 32 QT: 318 QTc: 466 Interpretive Statements Atrial fibrillation Compared to ECG 11/21/2020 17:03:[address] segment abnormality is no longer present Electronically Signed On 11-22-2020 16:18:39 CDT by Liu Reeves [email or web address] <ELECTRONICALLY SIGNED> By: Liu Reeves MD, [facility] 11/22/20 1618 08 08 Liu Reeves MD, FACC /EPI
--- NOTE | 2020-11-22 16:46 | 2DMMODE ---
[facility] [place] [place] [address] 2 D/M-MODE ECHOCARDIOGRAM Name: MARIA DEL CARMEN ALARCON Room #: 214-P ADM IN [facility]#: [id number] Admission: 11/21/20 Attend Phys: Shimon Hernandez MD Discharge: Date of : 61 Report #: [id number] THIS REPORT FOR: cc: FAM - No family physician/PCP FAM - No family physician/PCP Kip Chung MD ~ APPROVED REPORT Study performed: 11/22/2020 13:54:34 EXAM: Comprehensive 2D, Doppler, and color-flow Echocardiogram Patient Location: In-Patient Room #: 214 Status: routine BSA: 1.90 HR: 81 bpm BP: 117/74 mmHg Rhythm: NSR Other Information Study Quality: Fair Indications Atrial Fibrillation Elevated Troponin Chest Pain 2D Dimensions IVSd: 10.16 (7-11mm) LVDd: 21.82 mm PWd: 9.58 (7-11mm) Ascending Ao: 31.31 (22-36mm) LVDs: 18.44 (25-40mm) Left Atrium: 24.13 (27-40mm) Aortic Root: 28.02 mm Volumes Left Atrial Volume (Systole) Single Plane 4CH: 35.98 mL Single Plane 2CH: 46.62 mL Biplane LA Volume: 46.00 mL LA ESV Index: 24.00 mL/m2 Aortic Valve AoV Peak Jagdish.: 1.36 m/s AO Peak Gr.: 7.42 mmHg LVOT Max P.40 mmHg LVOT Max V: 1.16 m/s [facility] [address] [place] [address] 2 D/M-MODE ECHOCARDIOGRAM Name: MARIA DEL CARMEN ALARCON Room #: 214-P [facility] IN [facility]#: [id number] Admission: 11/21/20 Attend Phys: Shimon Hernandez MD Discharge: Date of : 61 Report #: [id number] Mitral Valve IVRT: 59.98 ms Pulmonary Valve PV Peak Jagdish.: 1.08 m/s PV Peak Gr.: 4.64 mmHg Tricuspid Valve TR Peak Jagdish.: 2.44 m/s RAP Estimate: 7.00 mmHg TR Peak Gr.: 23.89 mmHg Left Ventricle The left ventricle is normal size. There is normal LV segmental wall motion. There is normal left ventricular wall thickness. Left ventricular systolic function is normal. LVEF is 50-55%. This study is not technically sufficient to allow evaluation of the LV diastolic function. Right Ventricle The right ventricle is normal size. The right ventricular systolic function is normal. Atria The left atrium size is normal. The right atrium size is normal. Aortic Valve Aortic valve is trileaflet. No aortic regurgitation is present. There is no aortic valvular stenosis. Mitral Valve The mitral valve is normal in structure. There is no mitral valve regurgitation noted. No evidence of mitral valve stenosis. Tricuspid Valve The tricuspid valve is normal in structure. Trace to mild tricuspid regurgitation. Pulmonic Valve The pulmonary valve is normal in structure. There is no pulmonic valvular regurgitation. Great Vessels The aortic root is normal in size. IVC is normal in size and collapses >50% with inspiration. [facility] [address] [place] [address] 2 D/M-MODE ECHOCARDIOGRAM Name: MARIA DEL CARMEN ALARCON Room #: 214-P [facility] IN ..#: [id number] Admission: 11/21/20 Attend Phys: Shimon Hernandez MD Discharge: Date of : 61 Report #: [id number] Pericardium There is no pericardial effusion. <Conclusion> The left ventricle is normal size. The left ventricle is normal size. There is normal left ventricular wall thickness. There is normal LV segmental wall motion. LVEF is 50-55%. The left atrium size is normal. Aortic valve is trileaflet. The mitral valve is normal in structure. The tricuspid valve is normal in structure. Trace to mild tricuspid regurgitation. The pulmonary valve is normal in structure. The aortic root is normal in size. There is no pericardial effusion. <ELECTRONICALLY SIGNED> By: Kip Chung MD 11/22/20 1646 1646 1646 Kip Chung MD /INF
[2020-11-22 19:32] VITALS: BP 112/70
[2020-11-22 23:45] VITALS: BP 105/57
--- NOTE | 2020-11-23 03:40 | NUR ---
Assumed pt care at 1900. Pt is alert and oriented. CIWA protocol in place. Assessment completed and documented. Fall precaution in place. Denies pain. Scheduled meds administered to pt. Pt is NPO after midnight for EGD. No acute event through the night. Continue to monitor. No further needs at this
[2020-11-23 03:52] VITALS: BP 114/78
[2020-11-23 05:38] LABS: HEMATOCRIT 33.4 % (42.0-52.0); HEMOGLOBIN 11.2 gm/dL (14.0-18.0); MCH 26.5 pg (26.0-34.0); MCHC 33.5 g/dL (28.0-37.0); RBC 4.22 mil/uL (4.50-6.00); WBC 2.3 thou/uL (4.0-11.0)
[2020-11-23 05:49] LABS: INR 1.14; PROTIME 12.4 Seconds (10.5-12.1)
[2020-11-23 06:15] LABS: CALCIUM 7.7 mg/dL (8.5-10.1); CREATININE 0.8 mg/dL (0.7-1.3); POTASSIUM 4.1 mmol/L (3.5-5.1)
[2020-11-23 08:00] VITALS: BP 131/100
[2020-11-23 12:00] VITALS: BP 121/83
[2020-11-23 16:00] VITALS: BP 128/59
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
--- NOTE | 2020-11-23 18:44 | NUR ---
PT ALERT AND ORIENTED TIMES FOUR WITH PERIODS OF CONFUSION. VSS. CIWA 2 PT DENIES PAIN/SOA. PT TOLERATES MED AND MEALS. WILL CONTINUE TO MONITOR.
[2020-11-23 20:00] VITALS: BP 140/88
[2020-11-24 04:45] VITALS: BP 132/100
[2020-11-24 06:09] LABS: HEMATOCRIT 37.8 % (42.0-52.0); HEMOGLOBIN 12.3 gm/dL (14.0-18.0); MCH 26.2 pg (26.0-34.0); MCHC 32.6 g/dL (28.0-37.0); MCV 80.2 fL (80.0-100.0); RBC 4.71 mil/uL (4.50-6.00); RDW 21.1 % (10.5-14.5); WBC 5.8 thou/uL (4.0-11.0)
[2020-11-24 06:18] LABS: INR 1.18; PROTIME 12.8 Seconds (10.5-12.1)
[2020-11-24 06:22] LABS: ANION GAP 8 mmol/L (7-16); BUN 12 mg/dL (7-18); CALCIUM 8.4 mg/dL (8.5-10.1); CHLORIDE 100 mmol/L (98-107); CO2 26 mmol/L (21-32); CREATININE 0.9 mg/dL (0.7-1.3); GLUCOSE 136 mg/dL (74-106); POTASSIUM 4.7 mmol/L (3.5-5.1); SODIUM 134 mmol/L (136-145)
--- NOTE | 2020-11-24 07:40 | NUR ---
Pt was awake through out shift. Unsteady on feet. Had an emesis and bm this shift. NPO at MN. Fall precaution in place. Call light within reach. CIWA remains in place.
[2020-11-24 08:00] VITALS: BP 136/93
--- NOTE | 2020-11-24 11:31 | NUR ---
PT NOT IN HIS ROOM WHEN DR WAS DOING ROUNDS. PT HEART MONITOR, IV WAS ON HE BED. PT DID HAVE A BOOK BAG STILL AT BEDSIDE. SECURITY CALLED AND LOOKING FOR PT. WILL CONTINUE TO MONITOR.
[2020-11-24 12:03] LABS: CHOLESTEROL 130 mg/dL (<200); HDL CHOLESTEROL 29 mg/dL (>40); LDL CHOLESTEROL 88 mg/dL (<100); MAGNESIUM 1.6 mg/dL (1.8-2.4); TC:HDL 4.5 Ratio (Not establshd); TRIGLYCERIDE 69 mg/dL (<150); VLDL 14 mg/dL (<40)
[2020-11-24 12:50] VITALS: BP 133/93
[2020-11-24 14:47] LABS: AMP/METHAMP Negative (Negative); BARBITURATES Negative (Negative); BENZODIAZEPINES Negative (Negative); COCAINE Negative (Negative); METHADONE Negative (Negative); OPIATES POSITIVE (Negative); PCP Negative (Negative)
[2020-11-24 15:17] LABS: ALBUMIN 2.6 g/dL (3.4-5.0); CALCIUM 8.4 mg/dL (8.5-10.1); CREATININE 0.9 mg/dL (0.7-1.3); POTASSIUM 4.8 mmol/L (3.5-5.1); TOTAL BILIRUBIN 1.2 mg/dL (0.2-1.0); TOTAL PROTEIN 6.4 g/dL (6.4-8.2)
[2020-11-24 15:30] VITALS: BP 121/74
[2020-11-24 19:31] VITALS: BP 145/92
[2020-11-25 02:49] LABS: HEMATOCRIT 36.3 % (42.0-52.0); HEMOGLOBIN 11.9 gm/dL (14.0-18.0); MCH 26.6 pg (26.0-34.0); MCHC 32.9 g/dL (28.0-37.0); RBC 4.49 mil/uL (4.50-6.00); RDW 21.6 % (10.5-14.5); WBC 5.3 thou/uL (4.0-11.0)
[2020-11-25 02:56] LABS: CALCIUM 8.2 mg/dL (8.5-10.1); CREATININE 0.9 mg/dL (0.7-1.3); POTASSIUM 3.9 mmol/L (3.5-5.1)
[2020-11-25 03:05] LABS: INR 1.16; PROTIME 12.6 Seconds (10.5-12.1)
[2020-11-25 04:15] VITALS: BP 124/86
[2020-11-25 07:50] VITALS: BP 127/92
[2020-11-25 20:03] VITALS: BP 106/80
--- NOTE | 2020-11-26 00:49 | NUR ---
Pt voiced having pain mostly in his head and generalized. Oncall provider paged for pain med. Tramadol onetime ordered and given. Pt also requested for prn sleep med. Pt resting comfortably in his room, sleeping off and. Nursing to continue to monitor.
[2020-11-26 05:25] VITALS: BP 96/62
--- NOTE | 2020-11-26 05:59 | NUR ---
Pt slept off and on this shift. Provided with snacks and drinks several times per request this shift. PRN ativan given per pt's request. Abx to LFA IV, otherwise saline locked. Nursing to continue to monitor.
[2020-11-26 07:16] VITALS: BP 86/62
[2020-11-26] MEDS ORDERED: BAYER CHEWABLE81 MG PO (13:02)
[2020-11-26] MEDS ORDERED: CARDIZEM CD120 MG PO (13:02)
[2020-11-26] MEDS ORDERED: PROTONIX40 M2 PO (13:05)
[2020-11-26] MEDS ORDERED: ATENOLOL 100MG100 MG PO (13:05)
[2020-11-26 14:06] VITALS: BP 104/65
--- NOTE | 2020-11-26 16:35 | NUR ---
PATIENT PROVIDED WALKER, MEDICATIONS, AND CLOTHING AT DISCHARGE. DISCHARGE INSTRUCTIONS REVIEWED AND PATIENT INDICATED HE UNDERSTOOD THE INSTRUCTION. PATIENT WAS PROVIDED A CAB VOUCHER AND WAS WHEELED OUT TO SECURITY TO ARRANGE TRANSPORATION.
--- NOTE | 2020-11-26 16:51 | NUR ---
Pt dcing today. Gold provided (oh) along with clothing, and four scripts which were vouched per the [facility] pharmacy for $61. Cab voucher for transport back to [place] where he lives in a homeless camp. He was instructed on f[facility]/ and [employer] for his co medicaid nan which has been submitted.
== END 2020-11-26 16:38 | disposition home or self-care (01) | DRG 433 ==
LOC: ER 22:31 → EROBS 11-21 00:54 → 2N 11-22 13:06
PROVIDERS: Emergency Medicine; Nurse Practitioner Family; ADMIT Hospitalist; ATTEND Hospitalist
PROC: 0DJ08ZZ Inspection of Upper Intestinal Tract, Via Natural or Artificial Opening Endoscopic (ICD-10-PCS; principal; 2020-11-23)
DX: K70.31 Alcoholic cirrhosis of liver with ascites (principal); K92.0 Hematemesis; E46 Unspecified protein-calorie malnutrition; I85.00 Esophageal varices without bleeding; K76.6 Portal hypertension; I48.91 Unspecified atrial fibrillation; Z79.01 Long term (current) use of anticoagulants; B19.20 Unspecified viral hepatitis C without hepatic coma; Z71.41 Alcohol abuse counseling and surveillance of alcoholic; Z68.22 Body mass index [BMI] 22.0-22.9, adult; Z88.0 Allergy status to penicillin; Z88.8 Allergy status to other drugs, medicaments and biological substances; F17.210 Nicotine dependence, cigarettes, uncomplicated; F10.129 Alcohol abuse with intoxication, unspecified; D64.9 Anemia, unspecified; K72.10 Chronic hepatic failure without coma; Z20.822 Contact with and (suspected) exposure to COVID-19; K44.9 Diaphragmatic hernia without obstruction or gangrene; K31.89 Other diseases of stomach and duodenum; K29.80 Duodenitis without bleeding
CPT/HCPCS: 10081; 62110; 62900; 70005

== ENCOUNTER 2021-01-07 22:59 | Inpatient (IN) | payer OTHER ==
[~2021-01-07] VITALS: Ht 152.4 cm; Wt 80.3 kg
--- NOTE | ~2021-01-07 | HC ---
[facility] [place] [address] CONSULTATION Name: MARIA DEL CARMEN ALARCON Room #: 217-P [facility] IN ..#: [id number] Admission: 01/08/21 Attend Phys: Yakov Medina MD Discharge: Date of : 61 Report #: [id number] THIS REPORT FOR: cc: FAM - No family physician/PCP FAM - No family physician/PCP Dillon Fan MD ~ DATE OF SERVICE: 01/19/2021 HISTORY OF PRESENT ILLNESS: The patient is a 55-year-old white male admitted with bilateral lower extremity swelling, pain, generalized weakness. He was noted to be in atrial fibrillation with rapid ventricular response. He was placed on IV Cardizem and Lovenox for anticoagulation. He is noted to be homeless with a history of alcohol abuse and went through the alcohol withdrawal protocol in the ICU. He has had issues with delirium, has been restrained up until yesterday. He has been seen by psychiatry given scheduled Haldol as well as Seroquel. We are seeing him in rehabilitation medicine consultation. PAST MEDICAL HISTORY: Includes gastric ulcer, GI bleed, restless legs syndrome, alcohol abuse, atrial fibrillation, and tobaccoism. ALLERGIES: PENICILLIN AND CODEINE. MEDICATIONS: Please see the full medication listing. SOCIAL HISTORY: Homeless, unable to fill chronic medications including his anticoagulants. Apparently, he has a brother in [place]. HABITS: Alcohol one-fifth of whiskey per day when he can get it. One-half pack per day tobacco. REVIEW OF SYSTEMS: He did not offer any current complaints of chest pain, shortness of breath or abdominal discomfort. PHYSICAL EXAMINATION: GENERAL: Appears to be a rather limited historian, although he was not fully cooperative. He will follow basic commands. HEENT: Facies appeared symmetric. Male pattern balding. NEUROLOGICAL: Functional range of motion of both upper extremities, strength is a grade 4- to 3+/5. Lower extremities functional range of motion, strength is probably a grade 4-/5. Tone appeared to be intact. No focal calf swelling. ASSESSMENT: A 55-year-old white male with the following problem list: 1. Generalized weakness and debilitation. 2. Delirium with noted alcohol withdrawal. Psychiatry is involved. 3. Atrial fibrillation with rapid ventricular rate. 4. Bilateral pleural effusions. [facility] [address] [place] [address] CONSULTATION Name: MARIA DEL CARMEN ALARCON Room #: 217-P [facility] IN M.R.#: [id number] Admission: 01/08/21 Attend Phys: Yakov Medina MD Discharge: Date of : 61 Report #: [id number] 5. Cirrhosis of the liver with severe hypoproteinemia noted to be contributing to poor prognosis. 6. Superficial venous thrombosis. 7. Congestive heart failure exacerbation. 8. Acute alcohol intoxication with withdrawal. 9. Pancytopenia. 10. History of gastrointestinal bleed. 11. Vitamin B12 deficiency. 12. Electrolyte abnormalities. PLAN: We will ask PT and OT to evaluate. He is homeless and apparently has very limited social support. There is reference to a brother in the [place] although, I was unable to confirm that with the patient and he is a limited historian. He does not meet classic acute inpatient rehabilitation criteria. We will follow along with you for now. By: [id number] Dillon Fan MD /nt
[~2021-01-07 22:59] MED LIST changes: +ATENOLOL 100MG100 MG PO; +BAYER CHEWABLE81 MG PO; +CARDIZEM CD120 MG PO; +PROTONIX40 M2 PO
[2021-01-07 23:35] VITALS: BP 112/79
[2021-01-07 23:45] LABS: ABSOLUTE NEUTROPHILS 2.2 thou/uL (1.4-8.2); BASOPHILS 0.3 % (0.0-2.0); HEMATOCRIT 29.8 % (42.0-52.0); HEMOGLOBIN 9.6 gm/dL (14.0-18.0); LYMPHOCYTES 23.2 % (24.0-44.0); MCH 25.9 pg (26.0-34.0); MCHC 32.2 g/dL (28.0-37.0); MCV 80.2 fL (80.0-100.0); PLATELET COUNT 99 thou/uL (150-400); POLYS 60.5 % (36.0-66.0); RBC 3.71 mil/uL (4.50-6.00); RDW 20.8 % (10.5-14.5); WBC 3.6 thou/uL (4.0-11.0)
[2021-01-07 23:50] LABS: CALCIUM 7.9 mg/dL (8.5-10.1); CREATININE 0.8 mg/dL (0.7-1.3); POTASSIUM 3.7 mmol/L (3.5-5.1)
[2021-01-07 23:56] LABS: APTT 27.4 Seconds (24.5-32.8); INR 1.24; PROTIME 13.4 Seconds (10.5-12.1)
[2021-01-07 23:57] LABS: MAGNESIUM 1.4 mg/dL (1.8-2.4)
[2021-01-07 23:58] LABS: ALBUMIN 2.9 g/dL (3.4-5.0); TOTAL BILIRUBIN 1.4 mg/dL (0.2-1.0); TOTAL PROTEIN 6.4 g/dL (6.4-8.2)
[2021-01-08 08:02] VITALS: BP 90/56
[2021-01-08 09:34] VITALS: BP 116/85
[2021-01-08 11:11] VITALS: BP 116/75
[2021-01-08 15:30] VITALS: BP 116/76
[2021-01-08 19:30] VITALS: BP 133/69
[2021-01-08 22:33] LABS: AMP/METHAMP Negative (Negative); BARBITURATES Negative (Negative); BENZODIAZEPINES Negative (Negative); COCAINE Negative (Negative); METHADONE Negative (Negative); OPIATES Negative (Negative); PCP Negative (Negative)
[2021-01-08 23:21] VITALS: BP 101/63
[2021-01-09] VITALS (30 sets, daily range): BP systolic 89–131; BP diastolic 61–87
[2021-01-09 04:07] LABS: HEMATOCRIT 30.3 % (42.0-52.0); HEMOGLOBIN 9.8 gm/dL (14.0-18.0); MCH 26.1 pg (26.0-34.0); MCHC 32.3 g/dL (28.0-37.0); MCV 80.8 fL (80.0-100.0); RBC 3.75 mil/uL (4.50-6.00); RDW 20.9 % (10.5-14.5); WBC 3.8 thou/uL (4.0-11.0)
[2021-01-09 04:32] LABS: ALBUMIN 2.7 g/dL (3.4-5.0); CALCIUM 7.7 mg/dL (8.5-10.1); CREATININE 0.8 mg/dL (0.7-1.3); DIRECT BILIRUBIN 0.7 mg/dL (<0.1-0.2); INR 1.2; MAGNESIUM 1.6 mg/dL (1.8-2.4); POTASSIUM 3.9 mmol/L (3.5-5.1); TOTAL BILIRUBIN 1.2 mg/dL (0.2-1.0); TOTAL PROTEIN 6.3 g/dL (6.4-8.2)
--- NOTE | 2021-01-09 08:14 | NUR ---
ASSUMED PT CARE AT 1900, ALERT AND ORIENTEDX4, AFIB ON TELE, HR CONTROLLED IN THE 80S, PT GOTTEN PROGRESSIVELY IMPULSIVE THROUGH THE SHIFT, RESTLESS, REQUIRING ATIVANX3, SENIOR TECHNICAL ARCHITECT NOTIFIED, ASSESSMENTS CHARTED, MEDS GIVEN PER MAY, REPORT GIVEN TO DAY NURSE
--- NOTE | 2021-01-09 08:58 | NUR ---
PT TRANSFERED FROM CCU TO ICU AT 0815. REPORT GIVEN BY DALE NORTON AT BEDSIDE TO DALE JASON. PT LETHARGIC DURING TRANSFER, ONLY MOANS AND LOCALIZES PAIN. EXTERNAL MALE CATHETER PLACED. LEFT WRIST PERIPHERAL IV IN PLACE. WILL CONTINUE TO MONITOR.
--- NOTE | 2021-01-09 08:59 | NUR ---
AROUND SHIFT CHANGE THIS AM PT BECAME DISORIENTED, PULLING AT IV, TAKING TELE AND GOWN OFF, AND SWINGING AND KICKING AT STAFF. CONTACT ATTENDING AND PT GIVEN IM ASHLEY AND SENT TO ICU FOR PRECEDEX GTT. PT TAKEN TO ROOM 246 AND BEDSIDE REPORT GIVEN TO EREN HUNTER.
--- NOTE | 2021-01-09 21:15 | 2DMMODE ---
[facility] [place] [address] 2 D/M-MODE ECHOCARDIOGRAM Name: MARIA DEL CARMEN ALARCON Room #: 246-P [facility] IN .R.#: [id number] Admission: 01/08/21 Attend Phys: Loren Tiwari Discharge: Date of : 61 Report #: [id number] THIS REPORT FOR: cc: FAM - No family physician/PCP FAM - No family physician/PCP Roderick Dupree MD [facility] ~ APPROVED REPORT Study performed: 01/08/2021 09:40:51 EXAM: Comprehensive 2D, Doppler, and color-flow Echocardiogram Patient Location: In-Patient Room #: 206 Status: routine BSA: 1.84 HR: 104 bpm BP: 90/56 mmHg Rhythm: Atrial Fibrillation Other Information Study Quality: Good Risk Factors: Cardiac Risk Factors: Smoking Indications Atrial Fibrillation 2D Dimensions RVDd: 45.37 mm IVSd: 10.75 (7-11mm) LVOT Diam: 20.71 (18-24mm) LVDd: 39.38 mm PWd: 8.77 (7-11mm) Ascending Ao: 31.13 (22-36mm) LVDs: 23.06 (25-40mm) Left Atrium: 39.96 (27-40mm) Aortic Root: 30.51 mm Volumes Left Atrial Volume (Systole) Single Plane 4CH: 67.72 mL Single Plane 2CH: 66.13 mL Aortic Valve AoV Peak Jagdish.: 1.57 m/s AO Peak Gr.: 10.49 mmHg LVOT Max P.30 mmHg [facility] [address] [place] [address] 2 D/M-MODE ECHOCARDIOGRAM Name: SENAHUNGMARIA DEL CARMEN E Room #: 246-P [facility] IN .R.#: [id number] Admission: 01/08/21 Attend Phys: Loren Spain Discharge: Date of : 61 Report #: [id number] LVOT Max V: 1.13 m/s GURINDER Vmax: 2.43 cm2 AI Vmax: 3.12 m/s AI [place]: 2.66 m/s2 AI PHT: 353.48 ms Pulmonary Valve PV Peak Jagdish.: 1.16 m/s PV Peak Gr.: 5.42 mmHg Tricuspid Valve TR Peak Jagdish.: 2.74 m/s RAP Estimate: 10.00 mmHg TR Peak Gr.: 30.09 mmHg RVSP: 40.00 mmHg Left Ventricle The left ventricle is normal size. There is normal LV segmental wall motion. Mild concentric left ventricular hypertrophy. Left ventricular systolic function is normal. The left ventricular ejection fraction is within the normal range. LVEF is >70%. This study is not technically sufficient to allow evaluation of the LV diastolic function due to atrial fibrillation. Right Ventricle The right ventricle is normal size. The right ventricular systolic function is normal. Atria The left atrium size is normal. The right atrium size is normal. Aortic Valve Aortic valve leaflets are mildly thickened. Mild aortic regurgitation. There is no aortic valvular stenosis. Mitral Valve The mitral valve is normal in structure. Mild to moderate mitral regurgitation. No evidence of mitral valve stenosis. Tricuspid Valve The tricuspid valve is normal in structure. Mild to moderate tricuspid regurgitation. PAP 40 mmHg. Moderate pulmonary hypertension. Pulmonic Valve The pulmonary valve is normal in structure. Mild pulmonic regurgitation. [facility] [address] [place] [address] 2 D/M-MODE ECHOCARDIOGRAM Name: AGNESMARIA DEL CARMEN Herson Room #: 246-P [facility] IN ..#: [id number] Admission: 01/08/21 Attend Phys: Loren Spain Discharge: Date of : 61 Report #: [id number] Great Vessels The aortic root is normal in size. IVC is normal in size and collapses <50% with inspiration. Pericardium There is no pericardial effusion. There is no pleural effusion. <Conclusion> The left ventricle is normal size. Mild concentric left ventricular hypertrophy. LVEF is >70%. This study is not technically sufficient to allow evaluation of the LV diastolic function due to atrial fibrillation. The right ventricle is normal size. The left atrium size is normal. Aortic valve leaflets are mildly thickened. Mild aortic regurgitation. There is no aortic valvular stenosis. Mild to moderate mitral regurgitation. Mild to moderate tricuspid regurgitation. PAP 40 mmHg. Moderate pulmonary hypertension. The aortic root is normal in size. There is no pericardial effusion. <ELECTRONICALLY SIGNED> By: Roderick Dupree MD, FACC 01/09/212114 14 14 Roderick Dupree MD, FACC /INF
[2021-01-10] VITALS (46 sets, daily range): BP systolic 98–137; BP diastolic 69–102
[2021-01-10 04:28] LABS: HEMOGLOBIN 9.9 gm/dL (14.0-18.0)
[2021-01-10 04:31] LABS: MCH 26.1 pg (26.0-34.0); MCHC 32.1 g/dL (28.0-37.0); MCV 81.3 fL (80.0-100.0); RBC 3.81 mil/uL (4.50-6.00); RDW 20.2 % (10.5-14.5)
[2021-01-10 04:36] LABS: WBC 1.7 thou/uL (4.0-11.0)
[2021-01-10 04:38] LABS: CALCIUM 7.8 mg/dL (8.5-10.1); CREATININE 0.6 mg/dL (0.7-1.3); POTASSIUM 4.6 mmol/L (3.5-5.1)
--- NOTE | 2021-01-10 07:25 | EKG ---
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 : 1965 Requested By: Christ De La Paz Order Number: [id number] MD: Jorge Ni Measurements Intervals [place] Rate: 157 P: [place]: QRS: 28 QRSD: 79 T: 50 QT: 299 QTc: 484 Interpretive Statements Atrial fibrillation Low voltage, extremity leads Borderline prolonged QT interval Compared to ECG 11/22/2020 08:22:50 Low QRS voltage now present Electronically Signed On 01-10-2021 7:25:14 CDT by Jorge Ni [email or web address] <ELECTRONICALLY SIGNED> By: Jorge Ni MD, [facility] 01/10/21 0725 2324 2324 Jorge Ni MD, FACC /EPI
--- NOTE | 2021-01-10 09:27 | NUR ---
RD consult received. Pt admit with afib/RVR. Hx alcoholism, gastric ulcers and pt homeless. On thiamine, vitamin, and IVF. Wts stable from past wts 160-170 lb. Not alert enough to eat, observation for detox, but able to drink some. Does not need carb control diet, no diabetes. Change diet to regular and add oral supplement until alert enough to eat. Low nutrition risk with appropriate nutrition interventions in place
--- NOTE | 2021-01-10 13:11 | NUR ---
INITIAL ASSESSMENT: Received consult. SW reviewed chart and spoke with nursing and attending physician. Pt was admitted due to A-fib with RVR. Pt in ICU. Pt with hx of ETOH abuse and homelessness. Pt was transferred from CCU and placed on precedex. SW met with pt at bedside. Pt has just been given Ativan prior to SW visit. Pt was not able to participate in conversation. Per chart, pt has been living in a [place] homeless camp. Pt was most recently at [facility] in November and discharged on 11/26. Pt was provided with a walker and meds were vouched by case mgmt. Pt shows as having active insurance ([place] at this time. SW to follow up with pt when he is able to participate in assessment and discuss discharge options with pt. SW is following to assist as needed with discharge planning.
[2021-01-11] VITALS (23 sets, daily range): BP systolic 107–144; BP diastolic 77–101
--- NOTE | 2021-01-11 05:10 | NUR ---
PT BECAME VERY RESTLESS, AGITATED, IMPULSIVE AT BEGINNING OF SHIFT. HE ATTEMPTED TO GET OUT OF BED MULTIPLE TIMES, PULLING AT LINES AND IV. PRECEDEX GTT INCREASED TO MAX DOSE. NOTIFIED JEROMY JOYCE NP. ORDERS RECEIVED TO PLACE PT IN BILATERAL WRIST RESTRAINTS AND TO INSERT HO. ATTEMPTED TO TITRATE DOWN PRECEDEX GTT SLIGHTLY AFTER PT WAS MORE CALM, BUT PT BECAME RESTLESS AND AGITATED AGAIN. PRECEDEX GTT REMAINED AT MAX DOSE THROUGHOUT THE NIGHT. PT WOULD OCCASSIONALLY WAKE UP, PULLING AT HIS RESTRAINTS, AND TRYING TO GET OUT OF BED. REORIENTATION PROVIDED. PT APPEARED TO BE HAVING TACTILE HALLUCINATIONS AT TIMES DURING THE NIGHT. PRN LORAZEPAM AND HALDOL GIVEN INDICATED FOR ETOH WITHDRAWAL OR AGITATION. PT IS RESTING QUIETLY AGAIN AT THIS TIME. AFIB ON TELE. PT IS TACYCARDIC WITH AGITATION, BUT HR IMPROVES WITH RELAXATION. FALL PRECAUTIONS IN PLACE. NOT PROGRESSING WELL TOWARD POC GOALS. WILL MONITOR FURTHER.
--- NOTE | 2021-01-11 10:49 | NUR ---
SW reviewed chart and spoke with nursing and attending physician. Pt remains in ICU. ETOH withdrawal protocol. Pt was placed in restraints last night. Pt is on precedex. Pt is unable to participate in conversation at this time. SW is following to discuss discharge planning with pt when he is able to participate.
[2021-01-11 10:56] LABS: HEMATOCRIT 35.8 % (42.0-52.0); HEMOGLOBIN 11.3 gm/dL (14.0-18.0); MCH 25.4 pg (26.0-34.0); MCHC 31.7 g/dL (28.0-37.0); MCV 80.4 fL (80.0-100.0); RBC 4.46 mil/uL (4.50-6.00); RDW 20.5 % (10.5-14.5); WBC 2.4 thou/uL (4.0-11.0)
--- NOTE | 2021-01-11 17:44 | NUR ---
PATIENT PROGRESSING TOWARDS THE PLAN OF CARE EVIDENCED BY DECREASED NEED FOR PRECEDEX.
[2021-01-12] VITALS (24 sets, daily range): BP systolic 114–144; BP diastolic 83–104
--- NOTE | 2021-01-12 02:30 | NUR ---
This RN placed patient on a venti mask, patient was desatting on nasal cannula. Mouth breathing when in deep sleep. Will continue to wean and monitor.
--- NOTE | 2021-01-12 05:34 | NUR ---
This RN was unable to complete CIWA due to patient condition. Remains on precedex gtt and is receiving many PRN medications. Not progressing towards goals.
[2021-01-12 10:13] LABS: HEMATOCRIT 35.7 % (42.0-52.0); HEMOGLOBIN 11.2 gm/dL (14.0-18.0); MCH 25.7 pg (26.0-34.0); MCHC 31.3 g/dL (28.0-37.0); RBC 4.35 mil/uL (4.50-6.00); RDW 20.3 % (10.5-14.5)
[2021-01-12 10:14] LABS: WBC 2.4 thou/uL (4.0-11.0)
[2021-01-12 10:32] LABS: ANION GAP < 0 mmol/L (7-16); BUN 14 mg/dL (7-18); CALCIUM 7.8 mg/dL (8.5-10.1); CHLORIDE 108 mmol/L (98-107); CO2 26 mmol/L (21-32); CREATININE 0.6 mg/dL (0.7-1.3); GLUCOSE 118 mg/dL (74-106); SODIUM 133 mmol/L (136-145)
--- NOTE | 2021-01-12 15:53 | NUR ---
SW reviewed chart and spoke with nursing and attending physician. Pt remains in ICU. Pt is on ETOH withdrawal protocol. Pt in restraints. Pt receiving precedex, ativan and haldol. Pt unable to participate in conversation with SW. Pt has Calderon, as listed contact. SW to follow up with pt tomorrow to assess if pt is able. Will assist as needed with discharge planning.
[2021-01-13] VITALS (23 sets, daily range): BP systolic 96–131; BP diastolic 57–100
--- NOTE | 2021-01-13 06:23 | NUR ---
Pt not progressing toward goals at this time. Remains in a-fib with RVR, rates usually 110-125; BP remains stable. Pt still going through ETOH withdrawl; CIWA has been 10-12 on Precedex gtt except when pt sedated with Haldol and Ativan IVP prn. Pt remains in soft wrist restraints to prevent him pulling on monitor wires and cerda. Pt can get very aggitated - will yell and curse at staff when asking for a drink of soda/water. Does not redirect easily. O2 at 2 liter per canula, sat remains > 95%.
--- NOTE | 2021-01-13 08:41 | NUR ---
precedex off at 0715. ativan 2 mg po given for ciwa-9.
--- NOTE | 2021-01-13 11:15 | NUR ---
ISABELLA reviewed chart and spoke with nursing and attending physician. Pt remains in ICU. ETOH withdrawal protocol. Pt is in bilateral wrist restraints. Precedex discontinued this morning. Pt is on haldol and ativan. Pt not able to participate in conversation. ISABELLA placed call to Calderon Ramírez ([phone]) who is listed as a contact for pt. Voice mailbox has not been set up. ISABELLA is following to assist as needed with discharge planning.
--- NOTE | 2021-01-13 13:13 | NUR ---
despite lasix administration, afib returned to 140-160's. Dr. Harper and Dr. Burrows present. orders received for cardizem bolus and gtt, then administered. hr 120-130's, cardizem increased to 10mg/hr. pt resting quietly at this time.
[2021-01-13 16:39] LABS: ABSOLUTE NEUTROPHILS 4.4 thou/uL (1.4-8.2); BASOPHILS 0.4 % (0.0-2.0); EOSINOPHILS 0.6 % (0.0-3.0); HEMATOCRIT 32.5 % (42.0-52.0); HEMOGLOBIN 10.4 gm/dL (14.0-18.0); LYMPHOCYTES 13.3 % (24.0-44.0); MCH 25.5 pg (26.0-34.0); MCHC 31.9 g/dL (28.0-37.0); MCV 79.9 fL (80.0-100.0); MONOCYTES 9.9 % (1.0-8.0); PLATELET COUNT 76 thou/uL (150-400); POLYS 75.8 % (36.0-66.0); RBC 4.07 mil/uL (4.50-6.00); RDW 20.4 % (10.5-14.5); WBC 5.8 thou/uL (4.0-11.0)
[2021-01-13 17:08] LABS: CALCIUM 7.2 mg/dL (8.5-10.1); CREATININE 0.7 mg/dL (0.7-1.3); POTASSIUM 3.3 mmol/L (3.5-5.1); TOTAL BILIRUBIN 0.9 mg/dL (0.2-1.0); TOTAL PROTEIN 5.3 g/dL (6.4-8.2)
[2021-01-13 18:20] LABS: ANISOCYTOSIS 1+
[2021-01-14] VITALS (52 sets, daily range): BP systolic 87–141; BP diastolic 50–77
--- NOTE | 2021-01-14 02:42 | NUR ---
At 0145 pt more tachypnic and had audible wheezing. Aidee Wellington NP notified. Lasix 20 mg IVP given x1.
[2021-01-14 04:42] LABS: HEMATOCRIT 30.3 % (42.0-52.0); HEMOGLOBIN 9.9 gm/dL (14.0-18.0); MCHC 32.7 g/dL (28.0-37.0); MCV 79.5 fL (80.0-100.0); RBC 3.81 mil/uL (4.50-6.00); RDW 20.5 % (10.5-14.5); WBC 6.5 thou/uL (4.0-11.0)
[2021-01-14 05:29] LABS: CALCIUM 7.2 mg/dL (8.5-10.1); CREATININE 0.8 mg/dL (0.7-1.3); POTASSIUM 3.4 mmol/L (3.5-5.1)
[2021-01-14 06:42] LABS: MAGNESIUM 1.5 mg/dL (1.8-2.4); PHOSPHORUS 2.9 mg/dL (2.5-4.9)
--- NOTE | 2021-01-14 12:00 | NUR ---
ISABELLA reviewed chart and spoke with nursing and attending physician. Pt remains in ICU. Pt is in restraints. Pt to be placed on PO cardizem. No weekend discharge planned. Pt on ETOH withdrawal protocol. Pt will need therapy evals when able to participate. SW met with pt at bedside. Pt lethargic and not able to stay awake to have conversation. Pt does have health insurance and may have options for ETOH treatment or placement if pt is agreeable. ISABELLA is following to assist as needed with discharge planning.
--- NOTE | 2021-01-14 13:44 | NUR ---
PT HR HAS DECREASED FROM 100'S TO HIGH 40'S-50'S SINCE BEGINNING OF SHIFT CHANGE. PT GIVEN PO ATENOLOL 100MG AND PO DILTIAZEM CD 180MG THIS MORNING AT 0850. PT DILTIAZEM DRIP WAS D/C THIS AM WELL. PT HAS BASELINE OF AFIB AND HIS OF AFIB RVR. MAG WAS 1.5 AND POTASSIUM 3.4 DURING MORNING LAB DRAW, PT GIVEN 40MEQ PO POTASSIUM TABS ALONG WITH 2 BAGS OF IV 2G MAG ALONG WITH IT. CARDIOLOGY OFFICE WAS PAGED AT 1340. AWAITING CALL BACK.
[2021-01-14 15:21] LABS: MAGNESIUM 2.5 mg/dL (1.8-2.4); POTASSIUM 3.9 mmol/L (3.5-5.1)
--- NOTE | 2021-01-14 15:56 | EKG ---
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 01/14/21 1556 1411 10 Jorge Ni MD, FACC /EPI
[2021-01-14 16:06] LABS: URINE BILIRUBIN NEGATIVE (Negative); URINE BLOOD 3+ (Negative); URINE CLARITY SL CLOUDY; URINE COLOR YELLOW; URINE GLUCOSE-RANDOM* NEGATIVE (Negative); URINE KETONES NEGATIVE (Negative); URINE LEUKOCYTES-REFLEX TRACE (Negative); URINE NITRITE-REFLEX NEGATIVE (Negative); URINE PROTEIN (DIPSTICK) NEGATIVE (Negative); URINE UROBILINOGEN 0.2 E.U./dl (0.2-1.0)
[2021-01-14 17:29] LABS: BACTERIA-REFLEX 1-9 Few /HPF (None Seen); CASTS None Seen /LPF (None Seen); SQUAMOUS 0-3 Few /LPF (0-3); URINE RBC >20 Many /HPF (NONE SEEN); URINE WBC-REFLEX 0-5 Rare /HPF (0-5)
[2021-01-14 17:30] LABS: CRYSTALS None Seen /LPF (None Seen)
--- NOTE | 2021-01-14 18:31 | NUR ---
PT NOT PROGRESSING TOWARDS D/C GOALS. PT HAD BECOME BRADYCARDIC AND HYPOTENSIVE DURING THE 2ND HALF OF THE DAY. PT D-DIMER ALSO ELEVATED, TAKEN FOR STAT CT OF CHEST, PT ARMS HAVE MILD EDEMA, PT SCHEDULED TO HAVE VENOUS DOPPLER PERFORMED WELL TO ASSESS FOR PE, ORDER IS IN, DOPPLER HAS NOT BEEN DONE AT THIS TIME. PT REMAINS VERY LETHARGIC, HARD TO AROUSE AT TIMES, DIET IS VERY POOR PT WILL NOT STAY AWAKE LONG ENOUGH TO EAT AND ALSO APPEARS TO HAVE FEW TEETH. DOES ENJOY NUTRITIONAL SHAKES WHEN AWAKENED. PENIS/SCROTUM REMAIN +3 EDEMA. BREATHING NORMALLY ON 2LPM NC AT THIS TIME. PT REMAINS IN SOFT WRIST RESTRAINTS. URINE IS DECREASING AND ORANGE IN COLOR, PT MAY NEED IV FLUIDS/TPN WELL PT/OT CONSULT. WILL CONTINUE TO FOLLOW POC.
[2021-01-14 22:55] LABS: INR 1.17; PROTIME 12.7 Seconds (10.5-12.1)
[2021-01-15] VITALS (77 sets, daily range): BP systolic 96–133; BP diastolic 47–87
[2021-01-15 04:48] LABS: CALCIUM 7.8 mg/dL (8.5-10.1); CREATININE 0.8 mg/dL (0.7-1.3); POTASSIUM 4.1 mmol/L (3.5-5.1)
--- NOTE | 2021-01-15 11:36 | EKG ---
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
[2021-01-16] VITALS (11 sets, daily range): BP systolic 94–117; BP diastolic 62–81
[2021-01-16 21:24] LABS: ABSOLUTE NEUTROPHILS 1.8 thou/uL (1.4-8.2); BASOPHILS 1.5 % (0.0-2.0); EOSINOPHILS 2.5 % (0.0-3.0); HEMATOCRIT 29.8 % (42.0-52.0); HEMOGLOBIN 9.6 gm/dL (14.0-18.0); MCH 25.6 pg (26.0-34.0); MCHC 32.3 g/dL (28.0-37.0); MCV 79.4 fL (80.0-100.0); MONOCYTES 14.5 % (1.0-8.0); PLATELET COUNT 81 thou/uL (150-400); POLYS 58.5 % (36.0-66.0); RBC 3.75 mil/uL (4.50-6.00); RDW 20.6 % (10.5-14.5)
[2021-01-16 21:38] LABS: CALCIUM 8.3 mg/dL (8.5-10.1); CREATININE 0.8 mg/dL (0.7-1.3); MAGNESIUM 1.2 mg/dL (1.8-2.4); PHOSPHORUS 2.9 mg/dL (2.6-4.7); POTASSIUM 4.3 mmol/L (3.5-5.1)
[2021-01-17 04:45] VITALS: BP 121/75
[2021-01-17 07:30] VITALS: BP 137/75
[2021-01-17 07:47] LABS: ABSOLUTE NEUTROPHILS 1.6 thou/uL (1.4-8.2); BASOPHILS 0.5 % (0.0-2.0); EOSINOPHILS 2.9 % (0.0-3.0); HEMATOCRIT 32.2 % (42.0-52.0); HEMOGLOBIN 10.4 gm/dL (14.0-18.0); LYMPHOCYTES 29.7 % (24.0-44.0); MCH 25.5 pg (26.0-34.0); MCHC 32.1 g/dL (28.0-37.0); MCV 79.4 fL (80.0-100.0); MONOCYTES 14.5 % (1.0-8.0); PLATELET COUNT 86 thou/uL (150-400); POLYS 52.4 % (36.0-66.0); RBC 4.06 mil/uL (4.50-6.00); RDW 20.6 % (10.5-14.5); WBC 3.1 thou/uL (4.0-11.0)
[2021-01-17 07:54] LABS: CALCIUM 8.6 mg/dL (8.5-10.1); CREATININE 0.9 mg/dL (0.7-1.3); MAGNESIUM 1.3 mg/dL (1.8-2.4); PHOSPHORUS 3.8 mg/dL (2.6-4.7); POTASSIUM 4.2 mmol/L (3.5-5.1)
--- NOTE | 2021-01-17 07:56 | NUR ---
PT HAS BEEN AGITATED THROUGHOUT THE NIGHT, WITH CIWA SCORES RANGING FROM 10-13, MEDICATED WITH PRN LORAZEPAM PER ORDERS. PT CONFUSED TO WHAT DAY AND TIME OF DAY IT WAS THROUGHOUT THE SHIFT. PT WITH SOFT WRIST RESTRAINTS DUE TO AGITATED AND COMBATIVE BEHAVIOR AND ATTEMPTING TO PULL EQUIPMENT. HO IN PLACE TO DD WITH GOOD OUTPUT.
[2021-01-17 11:20] VITALS: BP 114/67
--- NOTE | 2021-01-17 14:57 | NUR ---
Nutrition followup: pt continues on CIWA protocol. Not alert for interview. noted poor oral intake due to SKYLER but will drink supplement when awake. Will increase Ensure to all meals. Noted 100% of 2 meals documented yesterday, unsure if accurate. Weights running in the 180s which is above UBW 160-170#, pt with current edema. on 2 diuretics with possible need for thoracentesis. Noted limited dentition per nsg notes. [facility] and monitor for improvement in po trends/ SKYLER.
[2021-01-17 15:30] VITALS: BP 116/77
[2021-01-17 20:27] VITALS: BP 107/72
--- NOTE | 2021-01-18 01:47 | NUR ---
ASSESSED AT START OF SHIFT. PT RESTING THEN STARTED TO GET RESTLESS, YELLING OUT AND WANTS TO LEAVE. IV ATIVAN GIVEN AND HALDOL ADMINISTERED LATER. ON A SIENA WRIST RESTRAINT. IV INTACT AND ALBUMIN GIVEN. FALL PREC IN PLACE. FREQ ROUNDING DONE. WILL CONT TO MONITOR.
[2021-01-18 05:31] VITALS: BP 136/79
[2021-01-18 08:28] VITALS: BP 142/95
[2021-01-18 11:30] VITALS: BP 119/69
--- NOTE | 2021-01-18 14:45 | NUR ---
TOOK OVER CARE OF AT 1200. PATIENT SLEEPING IN BED AT THIS TIME. BILATERAL UPPER EXTREMITY SOFT RESTRAINTS CONTINUED; RESTRAINT HAND-OFF SIGNED BY THIS NURSE AND LEAVING NURSE. PATIENT IN AFIB WITH RVR WHEN ARRIVED BUT RATES HAVE BEEN CONTROLLED 80-90'S. ATTEMPTED TO CALL DR. ARAGON REGARDING PATIENT'S RATES BUT NOT ABLE TO GET A HOLD OF HIM AT THIS TIME. WILL CONTINUE TO TRY. WILL CONINTUE TO MONITOR PATIENT.
[2021-01-18 16:20] VITALS: BP 95/64
[2021-01-18 19:06] VITALS: BP 83/51
[2021-01-19 04:30] VITALS: BP 124/72
--- NOTE | 2021-01-19 05:01 | NUR ---
PATIENT RESTING IN HIS ROOM AAOX3. PATIENT HAS BEEN CALM AND COOPERATIVE DURING THIS SHIFT. HE HAS BEEN CALM AND COOPERATIVE. DID COMPLAIN OF SOME PAIN TO HIS RLE. RESPONDED WELL TO PRN PAIN MEDICATION. PATIENT REMAINS IN AFIB BUT THE RATE IS CONTROLLED. ALL OTHER VITAL SIGNS HAVE BEEN STABLE. SOFT RESTRAINTS HAVE BEEN DISCONTINUED THIS AM. WILL CONTINUE TO MONITOR.
[2021-01-19 05:55] LABS: CALCIUM 8.8 mg/dL (8.5-10.1); CREATININE 0.8 mg/dL (0.7-1.3)
[2021-01-19 08:16] VITALS: BP 121/87
[2021-01-19 11:51] VITALS: BP 93/61
--- NOTE | 2021-01-19 12:04 | NUR ---
Spoke with patient who kept eyes closed but a bit more coherant. Patient reports he lives with friends in a house. He is aware he is at [facility] but not accurate with timeframe of being at [facility]. Patient out of restraints and 5n eval in process.
[2021-01-19 15:10] VITALS: BP 94/63
--- NOTE | 2021-01-19 17:52 | NUR ---
PT IS ALERT TO SELF, PLACE AND DATE. HE DOES GET CONFUSED AND IS FORGETFUL. PT ATTEMPTS TO GET OUT OF BED UNASSISTED. BED ALARM ON. RE EDUCATED PT MULTIPLE TIMES REGARDING CALL LIGHT AND CAN NOT GET UP WITHOUT ASSISTANCE. REMOVED HO CATHETER. NO COMPLAINTS OF PAIN OR DISCOMFORT AT THIS TIME. WILL CONTINUE TO MONITOR.
[2021-01-19 19:27] VITALS: BP 97/60
[2021-01-20 04:55] VITALS: BP 105/56
[2021-01-20 08:38] VITALS: BP 130/86
[2021-01-20 08:55] VITALS: BP 101/73
--- NOTE | 2021-01-20 10:57 | NUR ---
Assumed care of pt this AM. Pt is oriented x3, sleeping most of morning. On RA, no chest pain. Afib on the monitor. Pt w/ some mild anxiety & restlessness. Pt verablizing that he wants to go home. Explained importance of staying here to regain strength to be able to safely ambulate. High fall precautions in place, reported some impulsivity, however pt has not been impulsive so far this shift. Urinal at bedside & appropriately used. Will continue to assess pt needs.
[2021-01-20 12:27] VITALS: BP 103/65
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
[2021-01-20] MEDS ORDERED: SPIRONOLACTONE25 M1 PO (13:12)
[2021-01-20] MEDS ORDERED: KLOR-CON M2020 MEQ PO (13:12)
[2021-01-20] MEDS ORDERED: SEROQUEL 50 MG50 MG PO (13:12)
[2021-01-20] MEDS ORDERED: NICOTINE1 EAC2 TRANSDERM (13:12)
[2021-01-20] MEDS ORDERED: SEROQUEL 25 MG25 M1 PO (13:12)
[2021-01-20] MEDS ORDERED: LORAZEPAM 0.50.5 MG PO (13:12)
[2021-01-20] MEDS ORDERED: CARDIZEM CD120 MG PO (13:12)
[2021-01-20] MEDS ORDERED: HALOPERIDOL5 MG/1 ML IV PUSH (13:12)
[2021-01-20] MEDS ORDERED: ATENOLOL 50MG T50 M1 PO (13:12)
[2021-01-20] MEDS ORDERED: MAGNESIUM400 M1 PO (13:12)
--- NOTE | 2021-01-20 15:06 | NUR ---
AUTHORIZATION FOR ACUTE REHAB STAY REQUESTED FROM INSURANCE THIS DATE AND CLINICAL INFORMATION SENT. ALSO SENT WAS A REQUEST FROM LOAN INSPECTOR TO EXPIDITE AUTHORIZATION FOR THIS PATIENT. DECISION WITH EXPIDITED PROCESS WOULD COME TOMORROW, Sunday01/21/21.
[2021-01-20 15:45] VITALS: BP 106/56
[2021-01-20 20:15] VITALS: BP 101/67
[2021-01-21 04:40] VITALS: BP 108/68
[2021-01-21 08:49] VITALS: BP 105/62
--- NOTE | 2021-01-21 09:02 | NUR ---
PATIENT RESTING IN BED DURING SHIFT. WOKE TWICE AND REQUESTED FOOD AND SODAS.
[2021-01-21 12:26] VITALS: BP 126/79
--- NOTE | 2021-01-21 12:44 | NUR ---
Assumed care of pt this AM. Pt is A&O x3, forgetful of day. On RA, AFib on the monitor. Plan to transfer to rehab today. Orders obtained for MST status while still on the unit. Pt denies any pain. Will continue to assess needs.
[2021-01-21] MEDS ORDERED: SEROQUEL 25 MG25 M1 PO (14:36)
[2021-01-21] MEDS ORDERED: MAGNESIUM400 M1 PO (14:36)
[2021-01-21] MEDS ORDERED: KLOR-CON M2020 MEQ PO (14:36)
[2021-01-21] MEDS ORDERED: ATENOLOL 50MG T50 M1 PO (14:36)
[2021-01-21] MEDS ORDERED: PROTONIX40 M2 PO (14:36)
[2021-01-21] MEDS ORDERED: LACTULOSE20 GM/30 M PO (14:36)
[2021-01-21] MEDS ORDERED: SEROQUEL 50 MG50 MG PO (14:36)
[2021-01-21] MEDS ORDERED: CARDIZEM CD120 MG PO (14:36)
[2021-01-21] MEDS ORDERED: NICOTINE1 EAC2 TRANSDERM (14:36)
[2021-01-21 15:22] VITALS: BP 126/79
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
== END 2021-01-21 17:30 | disposition home or self-care (01) | DRG 291 ==
LOC: ER 22:59 → EROBS 01-08 01:00 → 2N 01-08 01:00 → ICU 01-08 01:00 → 2N 01-08 08:06 → ICU 01-09 08:13 → 2N 01-16 06:40
PROVIDERS: Emergency Medicine; Hospitalist; Internal Medicine; Internal Medicine Cardiovascular Disease; Nurse Practitioner; Nurse Practitioner Family; ADMIT Hospitalist; ATTEND Hospitalist
DX: I11.0 Hypertensive heart disease with heart failure (principal); J96.01 Acute respiratory failure with hypoxia; I50.31 Acute diastolic (congestive) heart failure; E43 Unspecified severe protein-calorie malnutrition; F10.239 Alcohol dependence with withdrawal, unspecified; E87.1 Hypo-osmolality and hyponatremia; I48.91 Unspecified atrial fibrillation; Z20.822 Contact with and (suspected) exposure to COVID-19; Z88.0 Allergy status to penicillin; Z88.8 Allergy status to other drugs, medicaments and biological substances; G62.9 Polyneuropathy, unspecified; Z68.34 Body mass index [BMI] 34.0-34.9, adult; Z79.01 Long term (current) use of anticoagulants; K74.60 Unspecified cirrhosis of liver; D69.6 Thrombocytopenia, unspecified; I95.9 Hypotension, unspecified; E87.6 Hypokalemia
CPT/HCPCS: 10078; 10081

== ENCOUNTER 2021-01-25 23:36 | Emergency (ER) | payer OTHER ==
[~2021-01-25] VITALS: Ht 182.9 cm; Wt 81.7 kg
[~2021-01-25 23:36] MED LIST changes: +ATENOLOL 50MG T50 M1 PO; +HALOPERIDOL5 MG/1 ML IV PUSH; +KLOR-CON M2020 MEQ PO; +LORAZEPAM 0.50.5 MG PO; +MAGNESIUM400 M1 PO; +NICOTINE1 EAC2 TRANSDERM; +SEROQUEL 25 MG25 M1 PO; +SEROQUEL 50 MG50 MG PO
[2021-01-26 00:13] LABS: ABSOLUTE NEUTROPHILS 1.8 thou/uL (1.4-8.2); BASOPHILS 0.5 % (0.0-2.0); EOSINOPHILS 2.9 % (0.0-3.0); HEMATOCRIT 28.8 % (42.0-52.0); HEMOGLOBIN 9.1 gm/dL (14.0-18.0); LYMPHOCYTES 37.4 % (24.0-44.0); MCH 25.5 pg (26.0-34.0); MCHC 31.6 g/dL (28.0-37.0); MCV 80.8 fL (80.0-100.0); MONOCYTES 13.8 % (1.0-8.0); PLATELET COUNT 157 thou/uL (150-400); POLYS 45.4 % (36.0-66.0); RBC 3.56 mil/uL (4.50-6.00); RDW 21.6 % (10.5-14.5); WBC 3.9 thou/uL (4.0-11.0)
[2021-01-26 00:15] LABS: CALCIUM 7.2 mg/dL (8.5-10.1); CREATININE 1.3 mg/dL (0.7-1.3); POTASSIUM 3.6 mmol/L (3.5-5.1)
[2021-01-26 00:21] LABS: ALBUMIN 3.1 g/dL (3.4-5.0); TOTAL BILIRUBIN 0.8 mg/dL (0.2-1.0); TOTAL PROTEIN 6.2 g/dL (6.4-8.2)
[2021-01-26 05:23] VITALS: BP 140/113
--- NOTE | 2021-01-26 07:26 | EKG ---
[address] [address] ELECTROCARDIOGRAM REPORT Name: MARIA DEL CARMEN ALARCON [id number] Admission: 01/25/21 Attend Phys: Discharge: 01/26/21 Date of : 61 Report #: [id number] [facility] ED Test Date: 2021-01-26 Test Time: 00:48:27 Pat Name: MARIA DELC ARMEN ALARCON Department: Room: Gender: Drum Saw Operator: MARY LOU : 1965 Requested By: Femi Chatterjee Order Number: [id number] MD: Jorge Ni Measurements Intervals [place] Rate: 65 P: [place]: QRS: 69 QRSD: 87 T: 61 QT: 517 QTc: 538 Interpretive Statements Atrial fibrillation Compared to ECG 01/15/2021 08:12:36 Myocardial infarct finding no longer present Electronically Signed On 01-26-2021 7:26:31 DEPOSITING MACHINE OPERATOR by Jorge Ni [email or web address] <ELECTRONICALLY SIGNED> By: Jorge Ni MD, [facility] 01/26/21 0726 0048 0048 Jorge Ni MD, FACC /EPI
== END 2021-01-26 05:29 | disposition home or self-care (01) ==
LOC: ER 23:36
PROVIDERS: Emergency Medicine
DX: R00.1 Bradycardia, unspecified (principal); T80.89XA Other complications following infusion, transfusion and therapeutic injection, initial encounter; F10.10 Alcohol abuse, uncomplicated; F14.10 Cocaine abuse, uncomplicated; B19.20 Unspecified viral hepatitis C without hepatic coma; K74.60 Unspecified cirrhosis of liver; I48.91 Unspecified atrial fibrillation; F17.210 Nicotine dependence, cigarettes, uncomplicated; F10.129 Alcohol abuse with intoxication, unspecified; Z79.82 Long term (current) use of aspirin; Z79.891 Long term (current) use of opiate analgesic; Z79.899 Other long term (current) drug therapy; Z88.6 Allergy status to analgesic agent; Z88.0 Allergy status to penicillin; Y90.9 Presence of alcohol in blood, level not specified

== ENCOUNTER 2021-01-26 08:20 | Inpatient (IN) | payer OTHER ==
[~2021-01-26] VITALS: Ht 177.8 cm; Wt 76.3 kg
[2021-01-26] VITALS (66 sets, daily range): BP systolic 78–116; BP diastolic 48–79
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
--- NOTE | 2021-01-26 09:00 | NUR ---
PT PRESENTED TO THE ER VIA EMS FROM [facility]RE[facility] WITH STATED AMS AND CONCERN OF ACUTE ETOH. PT WAS STATED TO HAVE BEEN D/C FROM THIS HOSPITAL EARLIER THIS AM FOR SIMILAR FINIDINGS. UPON ARRIVAL PT IS ALERT TO SELF AND PLACE. PT SPEECH IS UNTANGIBLE AND HARD TO UNDERSTAND. PT MOVES ALL EXTREMITIES VOLUNATARILY. PT RESPIRATIONS ARE EVEN AND UNLABORED. PT IS BRADYCARDIC AND HYPOTENSIVE ON THE MONITOR. PT MUCOUS MEMBRANES ARE DRY. PT DENIES ETOH OR RECENT DRUG USE. PT DENIES PAIN. PT IS IN AFIB ON THE MONITOR PT DENIES SOB OR CP. PT IS BRADYCARDIC AND HYPOTENSIVE. HARD TIME PLACING CENTRAL LINE D/T PT CONTINUING TO MOVE AROUND AND YELL. PT WAS UNABLE TO BE REDIRECTED. STERILE TECHNIQUE WAS MAINTAINED. PT WAS THEN INTUBATED FOR THE SAME, AIRWAY CONCERN, AND HIS SAFETY. PLEASE SEE EMAR FOR MEDS GIVEN AND PROVIDERS NOTES FOR INTUBATION. OG AND HO PLACED AFTER. PLEASE SEE EMAR FOR FURTHER MEDS GIVEN. PT REMAINED STABLE WITH THIS RN AT BEDSIDE.
[2021-01-26 09:28] LABS: ALBUMIN 3.5 g/dL (3.4-5.0); ANION GAP 14 mmol/L (7-16); BUN 27 mg/dL (7-18); CALCIUM 8.2 mg/dL (8.5-10.1); CHLORIDE 104 mmol/L (98-107); CO2 17 mmol/L (21-32); CREATININE 2.2 mg/dL (0.7-1.3); GLUCOSE 139 mg/dL (74-106); MAGNESIUM 1.7 mg/dL (1.8-2.4); PHOSPHORUS 4.8 mg/dL (2.6-4.7); SALICYLATE < 2.8 mg/dL (2.8-20.0); SGOT 97 U/L (15-37); SGPT 90 U/L (16-63); SODIUM 135 mmol/L (136-145); TOTAL BILIRUBIN 1.6 mg/dL (0.2-1.0); TOTAL PROTEIN 7.1 g/dL (6.4-8.2)
[2021-01-26 09:31] LABS: POTASSIUM 6.3 mmol/L (3.5-5.1)
[2021-01-26 10:05] LABS: HEMATOCRIT 29.8 % (42.0-52.0); HEMOGLOBIN 9.5 gm/dL (14.0-18.0); MCH 25.9 pg (26.0-34.0); MCHC 31.9 g/dL (28.0-37.0); MCV 81.2 fL (80.0-100.0); RBC 3.67 mil/uL (4.50-6.00); RDW 22.1 % (10.5-14.5); WBC 3.7 thou/uL (4.0-11.0)
--- NOTE | 2021-01-26 10:39 | NUR ---
VAT CONSULTED TO PLACE IJ CVL. PT UNABLE TO CONSENT FOR HIMSELF, SO DR BRASHER SIGNED CONSENT MEDICALLY NECESSARY. PT DIFFICULT TO KEEP IN POSITION WHILE PREPPING FIELD. DANE, RN TO BEDSIDE TO HELP. PT FREAKED WHEN STERILE DRAPE PLACED OVER HIS HEAD "YELLING I CAN'T BREATHE, TAKE IT OFF." HE REMAINED MOSTLY STILL UNTIL VERY CVL IN AND THIS RN CHECKING FOR BLOOD RETURN. HE STARTED TRYING TO REMOVE DRAPE, KICKING LEGS, MOVING HEAD. DR BRASHER TO BEDSIDE TO ASSIST WITH HOLDING, SO RN COULD OBTAIN AND GIVE PT ATIVAN. PT HAS SMALL HEMATOMA MEDIAL TO STICK SITE. PRESSURE DRESSING APPLIED OVER LINE DRESSING. TRIMMED 20CM WITH 0CM EXTERNAL. RADIOLOGY REPORTS TIP OVERLIES LOW SVC. RELEASED LINE, PER HOSPITAL VASCULAR ACCESS POLICY.
[2021-01-26 11:56] LABS: BE(vivo) -8.8 mmol/L (-2 to +3); HCO3 16.4 mmol/L (22.0-26.0); PCO2 32.9 mmHg (35.0-45.0); PO2 134.6 mmHg (80.0-100.0); pH 7.315 (7.360-7.450); sO2 98.5 % (92.0-98.0)
--- NOTE | 2021-01-26 12:27 | NUR ---
[address] AT THIS TIME WITH THIS RN AND ERROL RT 1227 BACK TO ED ROOM 09 AT THIS TIME-NO ACUTE CHANGES NOTED
--- NOTE | 2021-01-26 14:54 | NUR ---
INITIAL ASSESSMENT: SW reviewed chart and spoke with nursing. Pt was admitted after being found down at [facility]. Pt is intubated and is currently in the ICU. Per chart, pt has been living in a [place] homeless camp. Pt was most recently at [facility] from 01/08-01/20. Pt had been accepted to [facility]. Pt refused to go to [facility] and was discharged to his homeless camp. Pt's meds were vouched by case mgmt. Pt shows as having active insurance ([place]) at this time. SW to follow up with pt when he is able to participate in assessment and discuss discharge options with pt. SW is following to assist as needed with discharge planning.
--- NOTE | 2021-01-26 15:43 | EKG ---
[address] [address] ELECTROCARDIOGRAM REPORT Name: MARIA DEL CARMEN ALARCON Room #: 243-P ADM IN M.R.#: [id number] Admission: 01/26/21 Attend Phys: Kiran Petty MD Discharge: Date of : 61 Report #: [id number] [facility] ED Test Date: 2021-01-26 Test Time: 08:41:22 Pat Name: MARIA DEL CAMREN ALARCON Department: Room: 243 Gender: M Emergency Veterinary Technician: : 1965 Requested By: Finn Angel Order Number: [id number] MD: Jorge Ni Measurements Intervals [place] Rate: 41 P: [place]: QRS: 42 QRSD: 80 T: 35 QT: 525 QTc: 434 Interpretive Statements Atrial fibrillation Low voltage, extremity leads Anteroseptal infarct, old Compared to ECG 01/26/2021 00:48:27 Low QRS voltage now present Myocardial infarct finding now present Electronically Signed On 01-26-2021 15:43:31 WINE MERCHANT by Jorge Ni [email or web address] <ELECTRONICALLY SIGNED> By: Jorge Ni MD, [facility] 01/26/21 1543 0 0 Jorge Ni MD, FACC /EPI
--- NOTE | 2021-01-26 19:09 | NUR ---
PT ADM ON UNITE FROM ED WITH LEVOPHE, VERSED, AND FENTANYL INFUSING, PT VENTED FIO2 50, HO NOTE TO BE EMPTY, SKIN IN TACH HAS MUTLPLE ABRASIONS ON ARM AND LEGS BUT SACRUM INTACT. CHANGE CVP DRESSING.
[2021-01-26 20:23] LABS: CALCIUM 8.2 mg/dL (8.5-10.1); CREATININE 2.1 mg/dL (0.7-1.3)
[2021-01-26 20:30] LABS: POTASSIUM 5.2 mmol/L (3.5-5.1)
[2021-01-27] VITALS (83 sets, daily range): BP systolic 86–131; BP diastolic 51–96
[2021-01-27 04:27] LABS: HEMATOCRIT 27.5 % (42.0-52.0); HEMOGLOBIN 9.1 gm/dL (14.0-18.0); MCH 26.4 pg (26.0-34.0); MCHC 33.1 g/dL (28.0-37.0); MCV 79.5 fL (80.0-100.0); RBC 3.45 mil/uL (4.50-6.00); WBC 6.4 thou/uL (4.0-11.0)
[2021-01-27 05:19] LABS: CALCIUM 8.4 mg/dL (8.5-10.1); CREATININE 1.9 mg/dL (0.7-1.3)
[2021-01-27 05:25] LABS: POTASSIUM 4.2 mmol/L (3.5-5.1)
--- NOTE | 2021-01-27 08:13 | NUR ---
WOUND CARE RISK CONSULT; ASSESSED THE PATIENT WITH THE RN TODAY. DISCUSSED PRESSURE REDUCTION TECHNIQUES/INTERVENTIONS. BARRIER CREAM IS IN USED. ANSWERED ALL RN'S QUESTIONS. PROVIDED INFORMATION SHEET OF ALL THE WOUND CARE FORULARY. NO NEED TO FOLLOW.
--- NOTE | 2021-01-27 11:43 | NUR ---
Nutrition: Tube feeds will start. If ok with physician, REC 250 mL H20 flush q 6 hrs and consider ETOH vitamin protocol.
--- NOTE | 2021-01-27 15:40 | NUR ---
SW reviewed chart and spoke with nursing and attending physician. Discussed case also during ICU rounds. Pt remains intubated and sedated. Renal consulted. ETOH withdrawal protocol. Tube feeding to be started today. ISABELLA is following to assist as needed with discharge planning.
--- NOTE | 2021-01-27 16:15 | NUR ---
sedated on vent, rn repositioning pt today. 1615 self extubated, sa02-94% on 3L/nc, resp even and unlabored, Dr. Eid present updated. versed, fentanyl dc'd upon extubation. order pending for precedex gtt.
[2021-01-27 16:57] LABS: BE(vivo) -3.2 mmol/L (-2 to +3); HCO3 21.6 mmol/L (22.0-26.0); PCO2 37.4 mmHg (35.0-45.0); pH 7.379 (7.360-7.450); sO2 98.3 % (92.0-98.0)
[2021-01-28] VITALS (38 sets, daily range): BP systolic 97–142; BP diastolic 68–99
--- NOTE | 2021-01-28 06:43 | NUR ---
PATIENT IS PROGRESSING IN HIS CARE PLAN. VITAL SIGNS STABLE THROUGHOUT SHIFT. PATIENT MAINTAINED >95% OXYGEN SATURATION ON THREE LITERS NASAL CANNULA. RATE CONTROLLED AFIB. PATIENT LIGHTLY SEDATED THROUGHOUT SHIFT WITH BRIEF PERIODS OF WAKING AND CONFUSION. CONTINUE PLAN OF CARE.
[2021-01-28 13:05] LABS: URINE BILIRUBIN NEGATIVE (Negative); URINE BLOOD 2+ (Negative); URINE CLARITY CLEAR; URINE COLOR YELLOW; URINE GLUCOSE-RANDOM* NEGATIVE (Negative); URINE KETONES NEGATIVE (Negative); URINE NITRITE-REFLEX NEGATIVE (Negative); URINE PROTEIN (DIPSTICK) NEGATIVE (Negative)
[2021-01-28 13:12] LABS: AMP/METHAMP Negative (Negative); BARBITURATES Negative (Negative); BENZODIAZEPINES POSITIVE (Negative); COCAINE Negative (Negative); METHADONE Negative (Negative); OPIATES Negative (Negative); PCP Negative (Negative)
[2021-01-28 13:42] LABS: URINE LEUKOCYTES-REFLEX 1+ (Negative)
[2021-01-28 13:57] LABS: CASTS None Seen /LPF (None Seen); SQUAMOUS 0-3 Few /LPF (0-3); URINE RBC 3-10 Few /HPF (NONE SEEN); URINE WBC-REFLEX >25 Many /HPF (0-5)
[2021-01-28 13:58] LABS: CRYSTALS None Seen /LPF (None Seen)
--- NOTE | 2021-01-28 15:00 | NUR ---
precedex infusing, odilon wrist restraints intact, sleeping. slightly repositions self, drowsy and returns to sleep all shift. Then pt abruptly yelled out, Armond Grace RN immediately responded, discoverered pt pulled out his central line. no bleeding at site, dressing applied.
--- NOTE | 2021-01-28 15:29 | NUR ---
SW reviewed chart and spoke with nursing and attending physician. Case discussed during ICU rounds. ETOH withdrawal protocol. Pt self-extubated last evening. Pt is in wrist restraints due to agitation and pulling at lines. No weekend discharge planned. SW is following to assess pt and assist with discharge planning.
[2021-01-28 18:59] LABS: FOLIC ACID 28.6 ng/mL (8.6-58.9)
[2021-01-28 19:27] LABS: ALBUMIN 3.2 g/dL (3.4-5.0); CALCIUM 8.5 mg/dL (8.5-10.1); CREATININE 1.1 mg/dL (0.7-1.3); MAGNESIUM 1.2 mg/dL (1.8-2.4); POTASSIUM 4.4 mmol/L (3.5-5.1); TOTAL BILIRUBIN 2.2 mg/dL (0.2-1.0); TOTAL PROTEIN 6.8 g/dL (6.4-8.2)
[2021-01-29] VITALS (25 sets, daily range): BP systolic 100–150; BP diastolic 64–103
[2021-01-29 02:53] LABS: HEMATOCRIT 31.4 % (42.0-52.0); HEMOGLOBIN 10.4 gm/dL (14.0-18.0); MCHC 33.2 g/dL (28.0-37.0); MCV 78.2 fL (80.0-100.0); RBC 4.02 mil/uL (4.50-6.00); RDW 20.9 % (10.5-14.5); WBC 2.4 thou/uL (4.0-11.0)
[2021-01-29 03:07] LABS: ALBUMIN 3.1 g/dL (3.4-5.0); CALCIUM 8.5 mg/dL (8.5-10.1); CREATININE 0.9 mg/dL (0.7-1.3); MAGNESIUM 2.2 mg/dL (1.8-2.4); POTASSIUM 4.1 mmol/L (3.5-5.1); TOTAL BILIRUBIN 1.7 mg/dL (0.2-1.0); TOTAL PROTEIN 6.7 g/dL (6.4-8.2)
--- NOTE | 2021-01-29 06:12 | NUR ---
PT RESTING AT THIS TIME.A/O TO SELF,CONFUSED,FOLLOWS SIMPLE COMMANDS.ON ALCOHOL WITHDRAWAL PER PROTOCOL,KEPT ON PRECEDEX AND GIVEN LORAZEM PER CIWR.PT HAVING PERIODS OF AGITATION,POSITIVE FOR VISUAL AND AUDITORY HALLUCINATIONS.ASSESSMENT COMPLETED DOCUMENTED.POC IS TO CONT TO MONITOR PER POC AND WATCH FOR ALCOHOL WITHDRAWAL S/SX PLUS TX.
--- NOTE | 2021-01-29 12:42 | NUR ---
REFER TO THE OT VARIANCE. OT EVAL DEFERRED UNTIL 01/31 WHEN PT ABLE TO PARTICIPATE
[2021-01-29 23:18] LABS: AMP/METHAMP Negative (Negative); BARBITURATES Negative (Negative); BENZODIAZEPINES POSITIVE (Negative); COCAINE Negative (Negative); METHADONE Negative (Negative); OPIATES Negative (Negative); PCP Negative (Negative)
[2021-01-30] VITALS (29 sets, daily range): BP systolic 110–156; BP diastolic 68–112
--- NOTE | 2021-01-30 00:30 | NUR ---
PT VERY AGITATED AND RESTLESS AT THE BEGINNING OF THE SHIFT,REQUESTED TO HAVE HIS DINNER,ASSITED WITH EATING AND WHILE EATING, PT BECAME VERY TACHYCARDIAC WITH HR IN 150S-160S ACCOMPANIED BY SHORTNESS OF BREATH.PT GIVEN ANXIETY MEDS PER CIWR PROTOCOL W/O MUCH RELIEF,PURCHASE PRICE ANALYST NOTIFIED, CARDIZEM 10MG BOLUS GIVEN AND REQUESTED PATIENT TO SET FOOD ASIDE AND REST.PT WAS ABLE TO CALM DOWN ALITTLE AND HR LOWERED TO 120S.ANOTHER DOSE OF ATIVAN GIVEN BECAUSE PATIENT CONTINUED TO BE RESTLESS,IMPULSIVE AND AGITATED.CURRENTLY SLEEPING HR IN 80S.WILL CONT WITH POC.
[2021-01-30 05:54] LABS: HEMATOCRIT 31.8 % (42.0-52.0); HEMOGLOBIN 10.4 gm/dL (14.0-18.0); MCH 25.7 pg (26.0-34.0); MCHC 32.6 g/dL (28.0-37.0); MCV 78.7 fL (80.0-100.0); PLATELET COUNT 120 thou/uL (150-400); RBC 4.03 mil/uL (4.50-6.00)
[2021-01-30 05:58] LABS: WBC 1.8 thou/uL (4.0-11.0)
[2021-01-30 06:18] LABS: ALBUMIN 2.9 g/dL (3.4-5.0); CREATININE 0.8 mg/dL (0.7-1.3); MAGNESIUM 1.2 mg/dL (1.8-2.4); POTASSIUM 4.1 mmol/L (3.5-5.1); TOTAL BILIRUBIN 1.1 mg/dL (0.2-1.0); TOTAL PROTEIN 6.3 g/dL (6.4-8.2)
[2021-01-30 09:49] LABS: ABSOLUTE NEUTROPHILS 1.1 thou/uL (1.4-8.2)
[2021-01-30 09:50] LABS: ANISOCYTOSIS 2+
[2021-01-30 20:14] LABS: % SATURATION 12 % (20-39); IRON 34 ug/dL (65-175); TIBC 282 ug/dL (250-450)
--- NOTE | 2021-01-30 20:31 | NUR ---
PT WAS SEDATED AND SLEEPING THROUGHOUT MOST OF SHIFT. AT 1600, PT HAD SUSTAINED AWAKENING UNTIL THE REST OF THE SHIFT. PT WAS AGITATED, RESTLESS, AND IRRITABLE. PT HAS GOOD APPETITE, BUT WENT INTO A FIB RVR DURING HIS MEAL. DR. TEJADA WAS NOTIFIED AND ORDERED A BOLUS DOSE OF CARDIZEM FOLLOWED BY A CARDIZEM DRIP. PT RETURNED TO A HEART RATE OF 70S-80S FOLLOWING BOLUS DOSE AND START OF GTT. ATIVAN PO WAS GIVEN TWICE TODAY FOR CIWA <8. WILL CONTINUE TO FOLLOW PLAN OF CARE.
[2021-01-30 20:37] LABS: ABSOLUTE RETIC COUNT 0.0465 10^6/uL; OBSERVED RETIC COUNT 1.09 % (0.6-2.6)
[2021-01-30 23:51] LABS: D-DIMER 1.89 ug/mLFEU (0.19-0.50)
[2021-01-31] VITALS (22 sets, daily range): BP systolic 106–172; BP diastolic 73–128
--- NOTE | 2021-01-31 02:02 | NUR ---
ASSUMED PT CARE AT 1900, PT IS AWAKE, ALERT AND ORIENTEDX4, AFIB ON TELEMETRY, HR CONTROLLED BETWEEN 70S-80S, ON PRECEDEX AT 0.2 AND CARDIZEM AT 10ML/HR, TITRATED PER PROTOCOL, CIWA SCORE OF 8 AND 12, TREATED PER PROTOCOL, ASSESSMENTS CHARTED, HR BETWEEN 50S AND LOW 60S, CARDIZEM TITRATED OFF SCHEDULED METOPROLOL HELD, ON 4L OF O2 VIA NASAL CANULA, O2SATS STABLE, 98-100%, DENIES PAIN, REMAINS ON RESTRAINS, SLEEPIUNG AT THIS TIME, WILL CONTINUE TO MONITOR PER POC
[2021-01-31 05:25] LABS: MCH 26.3 pg (26.0-34.0); MCHC 33.5 g/dL (28.0-37.0)
[2021-01-31 05:26] LABS: HEMATOCRIT 29.9 % (42.0-52.0); MCV 78.6 fL (80.0-100.0); PLATELET COUNT 114 thou/uL (150-400); RDW 21.5 % (10.5-14.5)
[2021-01-31 05:39] LABS: WBC 1.8 thou/uL (4.0-11.0)
[2021-01-31 05:54] LABS: ALBUMIN 2.7 g/dL (3.4-5.0); CALCIUM 8.1 mg/dL (8.5-10.1); CREATININE 0.7 mg/dL (0.7-1.3); MAGNESIUM 1.4 mg/dL (1.8-2.4); POTASSIUM 3.8 mmol/L (3.5-5.1); TOTAL BILIRUBIN 0.9 mg/dL (0.2-1.0); TOTAL PROTEIN 6.1 g/dL (6.4-8.2)
--- NOTE | 2021-01-31 07:41 | EKG ---
[address] [address] ELECTROCARDIOGRAM REPORT Name: MARIA DEL CARMEN ALARCON Room #: 243-P ADM IN M.R.#: [id number] Admission: 01/26/21 Attend Phys: Kiran Petty MD Discharge: Date of : 61 Report #: [id number] [facility] Test Date: 2021-01-31 Test Time: 07:15:18 Pat Name: MARIA DEL CARMEN ALARCON Department: Room: 243 P Gender: M Planning Consultant: BRITTNY : 1965 Requested By: Kiran Petty Order Number: [id number] MD: Jorge Ni Measurements Intervals [place] Rate: 75 P: [place]: QRS: 26 QRSD: 85 T: 49 QT: 417 QTc: 466 Interpretive Statements Atrial fibrillation Borderline low voltage, extremity leads Compared to ECG 01/26/2021 08:41:22 Myocardial infarct finding no longer present Electronically Signed On 01-31-2021 7:41:06 CLINICAL RESEARCH MONITOR by Jorge Ni [email or web address] <ELECTRONICALLY SIGNED> By: Jorge Ni MD, [facility] 01/31/2141 4 4 Jorge Ni MD, FACC /EPI
--- NOTE | 2021-01-31 11:25 | NUR ---
PT NOW ON HOLD FOR OT UNTIL APPROPRIATE TO PARTICIPATE IN THERAPY, WHICH HE HAS NOT BEEN LAST 3 ATTEMPTS. PLEASE RE ORDER OT WHEN PT IS APPROPRIATE TO PARTICIPATE AND MEDICALLY STABLE.
[2021-01-31 11:29] LABS: ABSOLUTE NEUTROPHILS 0.9 thou/uL (1.4-8.2); ANISOCYTOSIS 2+
--- NOTE | 2021-01-31 14:07 | NUR ---
SW reviewed chart and spoke with nursing and attending physician. Pt remains in the ICU. Case discussed during ICU rounds. Pt is in restraints due to agitation. Pt unable to participate with therapy today. Pt is on precedex and cardizem gtt. Cardiology consulted today due to a-fib with RVR. Psych is following. SW to meet with pt when able to participate in conversation, to discuss discharge plan. Pt was recently accepted to , but chose to discharge back to his homeless camp in [place]. SW is following to assist as needed with discharge planning.
--- NOTE | 2021-01-31 15:33 | NUR ---
ALERT ON AND OFF THROUGHOUT THE DAY AND WHEN AWAKE YELLS OUT. IMPULSIVE AND USING INAPPROPRIATE LANGUAGE. ON PRECEDEX GTT AND ATTEMPT TO WEAN OFF UNSUCCESSFUL DESPITE PRN MEDS. HYPERTENSIVE AND IN AFIB (CONTROLLED) AND PATIENT ON SCHEDULED ANTIHYPERTENSIVES. TOLERATING DIET WHEN AWAKE. WILL CONTINUE WITH POC.
[2021-02-01] VITALS (34 sets, daily range): BP systolic 86–175; BP diastolic 64–121
[2021-02-01 05:35] LABS: HEMOGLOBIN 11.2 gm/dL (14.0-18.0); MCH 25.8 pg (26.0-34.0); MCHC 32.9 g/dL (28.0-37.0); MCV 78.3 fL (80.0-100.0); RBC 4.34 mil/uL (4.50-6.00); RDW 21.6 % (10.5-14.5); WBC 2.5 thou/uL (4.0-11.0)
[2021-02-01 05:59] LABS: CALCIUM 8.3 mg/dL (8.5-10.1); CREATININE 0.8 mg/dL (0.7-1.3); POTASSIUM 3.9 mmol/L (3.5-5.1)
--- NOTE | 2021-02-01 11:49 | NUR ---
SW reviewed chart and spoke with nursing and attending physician. Discussed case in ICU rounds. Pt is off precedex. Cardigem gtt changed to PO. Pt remains in restraints due to agitation. Pt is on room air. Psych following. Therapy evals to be completed when pt is able to participate. SW is following to assist as needed with discharge planning.
--- NOTE | 2021-02-01 18:53 | NUR ---
PT WENT INTO AFIB RVR TODAY WHILE EATING BREAKFAST. SUSTAINED 150-170'S. PO CARDIZEM RESTARTED WITH MORNING MEDS. IV METOPROLOL GIVEN AFTER CARDIZEM HAD TIME TO TAKE EFFECT. MINIMAL IMPROVEMENT THAT WAS NOT SUSTAINED AFTER METOPROLOL GIVEN. CARDIOLOGY NOTIFIED AND AN ORDER WAS RECEIVED TO GIVE 500ML BOLUS OF NS. THERE WAS STILL NO IMPROVEMENT AFTER BOLUS. IV AMIO ORDER RECEIVED RESULTING IN IMPROVEMENT OF HR AND BP. PT WEANED OFF OF PRECEDEX GTT AND TOLERATED PO ATIVAN AND IV HALDOL.
[2021-02-02] VITALS (14 sets, daily range): BP systolic 101–157; BP diastolic 63–102
--- NOTE | 2021-02-02 11:38 | NUR ---
SW reviewed chart and spoke with nursing and attending physician. Pt remains in restraints. Pt to transfer out of ICU to CCU today. SW met with pt at bedside. Pt not awake enough to partcipate in conversation. SW to follow up with pt at a later time and to assist as needed with discharge planning.
--- NOTE | 2021-02-02 19:41 | NUR ---
Pt was calm and cooperative throughout shift. Pt became bradycardic; amiodarone drip was stopped; Dr. Willams was contacted - he said to continue to monitor pt; if he becomes symptomatic then do NS bolus. Pt remained asymptomatic for remainder of shift. Pt ate well and has been sleeping and drowsy throughout shift.
--- NOTE | 2021-02-03 04:08 | NUR ---
RECEIVED THE PATIENT AT 1900H.ASSESSMENT CHARTED.SB ON THE MONITOR, HR 50-55, BLOOD PRESSURE ON THE SOFT SIDE.INFORMED ACCOUNT AUDITOR, NIGHT DOSE OF AMIODARONE AND ATENOLOL PO HELD PER ACCOUNT AUDITOR.ALL NEEDS ATTENDED.TO CONTINOUSLY MONITOR.
[2021-02-03 04:31] VITALS: BP 117/74
[2021-02-03 07:13] VITALS: BP 119/66
[2021-02-03 11:38] VITALS: BP 117/64
[2021-02-03 15:33] VITALS: BP 132/81
--- NOTE | 2021-02-03 16:49 | NUR ---
ASSESSMENT CHARTED - MEDS PER MAY - GIVEN TRAMADOL FOR CO'S OF PAIN IN SWOLLEN R HAND/ ARM - PT SLEEPING POST ADMINISTRATION. BONIFACIO DIET AND FLUIDS. NO CO'S OF NASUEA. PT HAS SPENT THE DAY RESTING IN BED - TURNS SELF FROM SIDE TO SIDE. PT SPEECH VERY DIFFICULT TO UNDERSTAND - MUMBLES AND IS CONFUSED. NO CO'S AT THE PRESENT TIME - APPEARS TO BE RESTING COMFORTABLY.
[2021-02-03 19:27] VITALS: BP 140/88
--- NOTE | 2021-02-04 04:27 | NUR ---
RECEIEVED PATIENT AT 1900H.ON NASAL CANNULA AT 2LPN.ASSESSMENT DONE CHARTED.RPN TRAMADOL GIVEN FOR COMPLAINTS OF PAIN ON SWOLLEN RIGHT HAND/ARM.ALL NEEDS ATTENDED.TO CONTINOUSLY MONITOR.
[2021-02-04 04:28] VITALS: BP 137/91
[2021-02-04 07:21] VITALS: BP 123/86
[2021-02-04 11:05] VITALS: BP 120/77
[2021-02-04 12:42] LABS: HEMATOCRIT 30.3 % (42.0-52.0); MCV 78.9 fL (80.0-100.0); RBC 3.84 mil/uL (4.50-6.00); RDW 22.7 % (10.5-14.5); WBC 2.7 thou/uL (4.0-11.0)
[2021-02-04 12:55] LABS: CALCIUM 8.5 mg/dL (8.5-10.1); CREATININE 0.9 mg/dL (0.7-1.3); POTASSIUM 4.2 mmol/L (3.5-5.1)
--- NOTE | 2021-02-04 12:55 | NUR ---
PT RESTING MOST OF SHIFT, ALERT AND ORIENTED X2-3. RIGHT ARM SWOLLEN, PAINFUL AND WARM. ELEVATED ON PILLOW AND COLD COMPRESS APPLIED. PAIN MED GIVEN PER ORDER. FALL PRECAUTIONS IN PLACE. DENIES ANY NEEDS, WILL CONTINUE TO MONITOR
[2021-02-04 15:30] VITALS: BP 115/76
[2021-02-04 19:36] VITALS: BP 129/777
[2021-02-05 00:01] VITALS: BP 130/74
[2021-02-05 03:14] VITALS: BP 147/97
--- NOTE | 2021-02-05 04:33 | NUR ---
PT IS ALERT AND ORIENTED X2 BUT DROWSY. COMPLAINS OF HAND PAIN IN RIGHT ARM IS SWOLLEN 2-3 PLUS AND REDNED. PAIN MEDS GIVEN AND LORAZEPAM GIVEN THIS AM. PT IS SOMEWHAT AGITATED THIS AM TOO. LUNGS CLEAR TO DIMININSHED ON ROOM AIR. ABDOMEN IS FLAT BOWEL SOUNDS ACTIVE X4. ONGOING NURISNG CARE ON THE UNIT AT THIS TIME FOR CARE PLAN. CALL LIGHT WITHIN REACH
[2021-02-05 07:11] VITALS: BP 133/86
[2021-02-05 11:35] VITALS: BP 155/64
[2021-02-05 15:45] VITALS: BP 137/85
--- NOTE | 2021-02-05 16:50 | NUR ---
PT NOT PROGRESSING TOWARDS D/C GOALS AT THIS TIME DUE TO LOW WBC AND PLT COUNTS. DESPITE THAT PT HAS BEEN AFRIBLE, GCS 15, A&OX3, PLEASANT, DROWSY MOST OF THE DAY. EATING WELL, KNOWS TO PUSH CALL LIGHT WHEN NEEDS SOMETHING. NO WITHDRAWAL S/S DURING THIS SHIFT. WILL CONTINUE TO FOLLOW POC.
[2021-02-05 19:21] VITALS: BP 141/94
[2021-02-06 04:37] VITALS: BP 119/73
--- NOTE | 2021-02-06 05:02 | NUR ---
PATIENT RESTING IN BED DURING SHIFT. PATIENT ALERT AND ORIENTED. REQUESTING FOOD AND SODA. C/O PAIN IN RIGHT ARM WHERE IV INFILTRATED. WRAPPED ARM IN WARM WET TOWEL FOR A PERIOD. PAIN MEDS AVAILABLE.
[2021-02-06 07:15] VITALS: BP 138/91
[2021-02-06 11:54] VITALS: BP 126/81
[2021-02-06 15:17] VITALS: BP 129/82
--- NOTE | 2021-02-06 18:16 | NUR ---
Pt was pleasant and cooperative throughout shift. Pt was A&0x3/4; VS stable; SR and afebrile. Pt complained of pain in right hand and upper right arm r/t inflitration of PIV. His arm was placed in compression sleeve, raised and iced - pt felt some relief from pain and itching. Pt recieved one dose of haladol to aid in easing agitation r/t pain in arm; afterwards, pt was calm and able to sleep.
[2021-02-06 20:46] VITALS: BP 109/79
--- NOTE | 2021-02-07 01:09 | NUR ---
ASSESSMENTS CHARTED. PATIENT RESTING IN BED DURING SHIFT. PATIENT RECEIVED HALDOL DURING DAY TO STOP HIM FROM DIGGING AT HIS ARM WHILE SCRATCHING. PATIENT SLEEPING SOUND AT START OF SHIFT. PATIENT WOKE ABOUT MIDNIGHT AND WAS VERY HUNGRY AND THIRSTY. STATED RIGHT ARM WAS GETTING BETTER.
[2021-02-07 05:23] VITALS: BP 120/76
[2021-02-07 07:14] VITALS: BP 114/72
[2021-02-07 11:15] VITALS: BP 120/77
[2021-02-07 14:55] VITALS: BP 111/78
--- NOTE | 2021-02-07 15:53 | NUR ---
NO FALLS OR INJURIES THIS SHIFT. ALL SAFETY MEASURES IN PLACE. VSS. NO C/O PAIN. PATIENT ABLE TO MOVE SELF IN BED/CHAIR. MD WANTS PATIENT UP IN CHAIR DURING THE DAY. [facility] PLACED ON THIS MORNING. TOLERATES DIET, EATS APPXOMIATELY 50% OF DIET. GIVEN FOOD MENU SO HE COULD MAKE OTHER FOOD CHOICES. [address] ACCU CHECKS COMPLETED, INSULIN GIVEN PER ORDERS. STILL NO BM AT THIS TIME. PATIENT REMAINS TO BE ORTHOSTATIC ON STANDING. STAND AND PIVOT TO BSC AND CHAIR. PATIENT WILL DC ONCE MEDICALLY STABLE.
--- NOTE | 2021-02-07 16:57 | NUR ---
ASSESSMENT CHARTED - MEDS PER MAR - BONIFACIO DIET AND FLUIDS- NO CO'S OF PAIN OR NAUSEA. PT AMBULATED IN THE HALLS WITH PHYS THERAPY TODAY BONIFACIO WELL - A LITTLE UNSTEADY ON FEET. R ARM/ HAND WITH DECREASED SWELLING REAMAINS WARM TO TOUCH AND PT STATES DOES HURT AT TIMES WHEN TOUCHED. NO CO'S AT THE PRESENT TIME. STATES HE IS COMFORTABLE
--- NOTE | 2021-02-07 17:27 | NUR ---
Patient is not accepted to [facility]. Sp with patient and discussed dc planning. patient homeless and living in a shed. patient does not want to go to ETOH treatment. He does not want to go to homeless nursing home or [facility]. Discussed half-way placement. Patient reports to give him info and he will think about placement.
[2021-02-07 21:00] VITALS: BP 143/86
--- NOTE | 2021-02-08 07:48 | NUR ---
ASSESSMENTS CHARTED. PATIENT SLEPT THROUGH MOST OF SHIFT, RIGHT ARM IS GETTING BETTER, BUT THERE IS STILL A KNOT NEAR THE AC. FALL PRECAUTIONS IN PLACE DURING SHIFT.
[2021-02-08 08:00] VITALS: BP 125/70
[2021-02-08 12:00] VITALS: BP 112/64
[2021-02-08 16:05] VITALS: BP 106/870
[2021-02-08 19:18] VITALS: BP 108/65
--- NOTE | 2021-02-08 19:18 | NUR ---
Pt was A&Ox3/4 pleasant, calm and cooperative throughout shift. VS were stablE: HR 60s-80s, BP 120s/60-70s, no fever. Pt still has pain in right upper arm and right hand r/t to IV infiltration; alternated heat and cold therapy for comfort as well as pain meds Q6. Pt was sitting in chair for most of shift and started ambulating to BR independently as requested by . Case management consulted for possibe placement in SNF. Pt progressing towards discharge goals.
--- NOTE | 2021-02-09 01:58 | NUR ---
ASSUMED PATIENT CARE AT 0100
--- NOTE | 2021-02-09 02:01 | NUR ---
ASSESSMENT CHARTED. PATIENT RESTING IN RECLINER DURING SHIFT. PLAN OF CARE IS TO BE INDEPENDENT PRIOR TO DISCHARGE. SWS TO SPEAK TO HIM ABOUT SNF.
[2021-02-09 03:51] VITALS: BP 118/68
[2021-02-09 08:16] VITALS: BP 114/70
[2021-02-09] MEDS ORDERED: SEROQUEL 25 MG25 MG PO (11:20)
[2021-02-09] MEDS ORDERED: PRENATAL PO (11:20)
[2021-02-09] MEDS ORDERED: METOPROLOL SUCC50 MG PO (11:20)
[2021-02-09 11:45] VITALS: BP 100/66
[2021-02-09 15:23] VITALS: BP 132/76
--- NOTE | 2021-02-09 16:54 | NUR ---
referral to [facility]. Patient wanted facility close to [place]. Discussed long-term placement. Discussed cannot leave during day and return. D[place]ed [place]. possible roommate. Reviewed most all paramaters of long-term placement. Liason from [facility] completed onsite eval and can accept. Patient wants to think about placement. discussed patient is medically stable and able to dc from acute care. plan dc in am possibly to [facility].
--- NOTE | 2021-02-09 19:30 | NUR ---
Pt was pleasant and A&0x4 throughout shift. VS were stable and pt was afebrile. Pt was up at saran, sitting in chair and took a shower and shaved independently. Pt's right arm and hand have imporved; no edema or redness. [facility] [employer] from SNF, social work, case management and psychiatry spoke with pt about his discharge destination; Pt expressed that he was willing to be discharged to the SNF. Discharge is planned for 02/10/21 morning; transport arranged for 8am. Continue to monitor.
[2021-02-09 19:37] VITALS: BP 135/84
--- NOTE | 2021-02-10 03:50 | NUR ---
RECEIEVED PATIENT AT 1900H.PATIENT IS ALERT AND ORIENTED X4.ON ROOM AIR BREATHING SPONTANEOUSLY.NOT IN DISTRESS. ALL NEEDS ATTENDED.TO CONTINOUSLY MONITOR.
[2021-02-10 04:30] VITALS: BP 119/73
[2021-02-10 07:37] VITALS: BP 106/67
[2021-02-10 11:59] VITALS: BP 114/67
--- NOTE | 2021-02-10 13:48 | NUR ---
DISCHARGE NOTE: Pt is medically stable for discharge to [facility] today. ISABELLA confirmed with Rhona, admissions liaison at [facility], that the facility is able to accept pt today. Discharge ppwk faxed. Confirmed info was received. [facility] does not have transportation available today. ISABELLA arranged w/c van transportation through [employer] for [id number]. ISABELLA notified Director of Case Mgmt of transportation arrangements. Chart copy requested. Nursing to call report to [facility]. Pt updated and agreeable with plan. No additional SW need identified at this time. Case closed. KENDALL-- [facility] [facility]--
[2021-02-10 15:53] VITALS: BP 107/64
--- NOTE | 2021-02-10 18:05 | NUR ---
PATIENT IS BEIG DISCHARGED TO [facility]. PATIENT IS A/OX3 ABLE TO MAKE NEEDS KNOWN. SKIN IS PALE DRY AND INTACT. VSS AFEBRILE. PAIN IN SHOULDERS AND NECK BUT IS CONTROLED WITH PAIN MEDICATIONS. PATIENT AMBULATES IN ROOM WITH SLOW GAIT. WOBBLY AT TIMES. CONTINENT OF BOWEL AND BLADDER. REPORT GIVEN TO [facility]. PATIENT WAS PICKED UP BY [facility]. LEFT VIA WC AT 1745.
== END 2021-02-10 18:21 | DRG 208 ==
LOC: ER 08:20 → EROBS 13:00 → ICU 13:00 → 2N 13:00 → ICU 13:44 → 2N 02-02 11:38
PROVIDERS: Emergency Medicine; Hospitalist; Pediatrics; Psychiatry & Neurology Psychiatry; ADMIT Internal Medicine; ATTEND Internal Medicine
PROC: 0BH17EZ Insertion of Endotracheal Airway into Trachea, Via Natural or Artificial Opening (ICD-10-PCS; principal; 2021-01-26)
PROC: 5A1945Z Respiratory Ventilation, 24-96 Consecutive Hours (ICD-10-PCS; principal; 2021-01-26)
DX: J96.01 Acute respiratory failure with hypoxia (principal); G93.41 Metabolic encephalopathy; I50.32 Chronic diastolic (congestive) heart failure; I48.20 Chronic atrial fibrillation, unspecified; E87.1 Hypo-osmolality and hyponatremia; F10.139 Alcohol abuse with withdrawal, unspecified; N17.9 Acute kidney failure, unspecified; D61.818 Other pancytopenia; K74.60 Unspecified cirrhosis of liver; K70.10 Alcoholic hepatitis without ascites; I95.9 Hypotension, unspecified; F17.210 Nicotine dependence, cigarettes, uncomplicated; F10.129 Alcohol abuse with intoxication, unspecified; R26.89 Other abnormalities of gait and mobility; E87.5 Hyperkalemia; Z20.822 Contact with and (suspected) exposure to COVID-19; Z88.6 Allergy status to analgesic agent; Z88.0 Allergy status to penicillin
CPT/HCPCS: 10078; 10081; 65040

== ENCOUNTER 2021-04-17 20:11 | Emergency (ER) | payer OTHER ==
[~2021-04-17] VITALS: Ht 175.3 cm; Wt 72.6 kg
--- NOTE | ~2021-04-17 | EMS ---
[address] [address] EMS Patient Care Report Name: MARIA DEL CARMEN ALARCON Room #: DEP HUNG Logan#: [id number] Admission: 04/17/21 Attend Phys: Discharge: 04/18/21 Date of : 61 Report #: [id number] THIS REPORT FOR: //name// Report Transmitted: 04/19/2021 13:59 EMS Care Summary [place], [place]/[facility] Incident [id number] @ 04/17/2021 19:44 Incident Location [address] [place] [address]- Patient MARIA DEL CARMEN ALARCON Male, 55 Years 1965 Patient Address [address] [place] [address] [address] [address] Patient History None Reported, Patient Allergies Codeine,Penicillin allergy, Patient Medications None Reported, Chief Complaint OVERDOSE ALCOHOL Disposition Transported No Lights/[place] Reason Overdose/Poisoning/Ingestion Transported To [facility] Narrative UPON ARRIVAL, PT WAS LAYING IN THE BED WITH NO CLOTHES, M42 ASSISTED PT TO STRETCHER, SECURED WITH STRAPS X2, NURSE STATES PT HAS BEEN STUMBLING IN THE HALLS, WITH EMPTY ALCOHOL CONTAINERS IN ROOM. M42 OBTAINED VITALS AND HISTORY [address] [address] EMS Patient Care Report Name: MARIA DEL CARMEN ALARCON Room #: DEP Desmond#: [id number] Admission: 04/17/21 Attend Phys: Discharge: 04/18/21 Date of : 61 Report #: [id number] LISTED IN REPORT. [facility] TO HOSPITAL WHERE PT CARE WAS TRANSFERED AFTER GIVING REPORT TO NURSE. STAFF SHOWED M42 3 EMPTY BOTTLES OF ALCOHOL THAT PT RETURNED TO THE FACILITY WITH AFTER A DAY OUT. STAFF HAD NO OTHER INFO. Initial Vitals @19:58P: 95,R: 16,BP: 157/103,Pain: 2/10,GCS: 15,Glucose: 231,CO: 2,SpO2: 96,Revised Trauma: 12, @20:04P: 98,R: 16,BP: 161/107,Pain: 2/10,GCS: 15,CO: 2,SpO2: 96,Revised Trauma: 12, Assessments @19:52MENTAL:No Abnormalities,SKIN:Other,HEENT:Head/Face: No Abnormalities,Eyes: No Abnormalities,Neck/Airway: No Abnormalities,LUNG SOUNDS:General: No Abnormalities,Left Upper: No Abnormalities,Right Upper: No Abnormalities,Left Lower: No Abnormalities,Right Lower: No Abnormalities,ABDOMEN:General: No Abnormalities,Left Upper: No Abnormalities,Right Upper: No Abnormalities,Left Lower: No Abnormalities,Right Lower: No Abnormalities,PELVIS//GI:No Abnormalities,EXTREMITIES:Left Arm: No Abnormalities,Right Arm: No Abnormalities,Left Leg: No Abnormalities,Right Leg: No Abnormalities,PULSE:NEURO: Impression Overdose - Alcohol Procedures @19:52 BLS Assessment Response: Unchanged Timeline 19:42,Call Received 19:42,Dispatch Notified 19:44,Dispatched 19:44,En Route 19:48,On Scene 19:52,At Patient 19:52,BLS Assessment,Response: Unchanged 19:58,Depart Scene 19:58,BP: 157/103 M,PULSE: 95,RR: 16 R,SPO2: 96 Ox,ETCO2: ,B,PAIN: 2,GCS: 15, 20:04,BP: 161/107 M,PULSE: 98,RR: 16 R,SPO2: 96 Ox,ETCO2: ,BG: ,PAIN: 2,GCS: 15, 20:06,At Destination 20:21,Call Closed [facility] [address] [place] [address] EMS Patient Care Report Name: AGNESMARIA DEL CARMEN E Room #: DEP Desmond#: [id number] Admission: 04/17/21 Attend Phys: Discharge: 04/18/21 Date of : 61 Report #: [id number] Disclaimer [email or web address] Copyright 2021 [employer] This EMS Care Summary contains data elements from the applicable legal record (which may be displayed differently). It is designed to provide pertinent information for the following purposes: continuity of care, clinical quality, and state data reporting. The complete legal record is available to ED staff and administrators of the receiving hospital in [employer] Patient Tracker. All data is provided "as is."
[~2021-04-17 20:11] MED LIST changes: +METOPROLOL SUCC50 MG PO; +PRENATAL PO; +SEROQUEL 25 MG25 MG PO
[2021-04-17] MEDS ORDERED: ASA81BEC PO (20:15)
[2021-04-17] MEDS ORDERED: PROTONIX40 M2 PO (20:15)
[2021-04-17] MEDS ORDERED: KRISTALOSE20 GM PO (20:15)
[2021-04-17] MEDS ORDERED: ENBRACE HR SOF1 EACH PO (20:16)
[2021-04-17] MEDS ORDERED: SEROQUEL 25 MG25 MG PO (20:16)
[2021-04-17] MEDS ORDERED: TOPROL XL50 MG PO (20:16)
[2021-04-18 00:18] VITALS: BP 136/93
== END 2021-04-18 00:30 | disposition home or self-care (01) ==
LOC: ER 20:11
DX: F10.129 Alcohol abuse with intoxication, unspecified (principal); Y90.9 Presence of alcohol in blood, level not specified; F17.210 Nicotine dependence, cigarettes, uncomplicated; Z79.899 Other long term (current) drug therapy; Z88.5 Allergy status to narcotic agent; Z88.0 Allergy status to penicillin